=== PATIENT | female | born 1950 | race African-American/Black ===

== ENCOUNTER 2016-11-18 12:13 | Day surgery (SDC) | payer MEDICARE ==
--- OUTSIDE RECORDS SUMMARY | 2016-11-18 12:16 | XMS | Clinical Summary ---
:1950 Author Organization [facility] Address [address] [place] [address] Phone Care Team Providers Name Role Phone , Primary Care Provider Unavailable Allergies Not on File Current Medications Not on file Active Problems Not on file Social History Tobacco Use Types Packs/Day Years Used Date Never Assessed Sex Assigned at Date Recorded Not on file Last Filed Vital Signs Not on file Plan of Treatment Not on file Results Not on filefrom Last 3 Months
[2016-11-18 21:49] VITALS: TEMP 99.1
[2016-11-18] MEDS ORDERED: cloNIDine HCl 0.1 MG TAB PO SCH (22:00)
[2016-11-18] MEDS ORDERED: cloNIDine HCl 0.1 MG TAB PO PRN (22:33)
[2016-11-18 23:24] VITALS: BP 160/65
== END 2016-11-18 23:56 ==
LOC: ONC/OP 12:13 → ONC 12:34 → ONC/OP 23:56
PROVIDERS: ATTEND Internal Medicine Nephrology
PROC: 30233N1 Transfusion of Nonautologous Red Blood Cells into Peripheral Vein, Percutaneous Approach (ICD-10-PCS; principal; 2016-11-18)
DX: D63.1 Anemia in chronic kidney disease (principal); E11.22 Type 2 diabetes mellitus with diabetic chronic kidney disease; I13.2 Hypertensive heart and chronic kidney disease with heart failure and with stage 5 chronic kidney disease, or end stage renal disease; I50.9 Heart failure, unspecified; N18.6 End stage renal disease; Z99.2 Dependence on renal dialysis; K21.9 Gastro-esophageal reflux disease without esophagitis; I73.9 Peripheral vascular disease, unspecified; Z90.710 Acquired absence of both cervix and uterus; Z89.511 Acquired absence of right leg below knee; Z79.82 Long term (current) use of aspirin; Z79.899 Other long term (current) drug therapy; Z91.013 Allergy to seafood; Z91.041 Radiographic dye allergy status
CPT/HCPCS: 36430; 86850; 86900; 86901; 99211; G0463; P9016

== ENCOUNTER 2016-12-15 12:01 | Inpatient (IN) | payer MEDICARE ==
[2016-12-15] MEDS ORDERED: Meropenem 1 GM VIAL ONE (12:49)
[2016-12-15] MEDS ORDERED: Sodium Chloride 0.9% 100 ML ONE (12:50)
[2016-12-15 13:35] LABS: #Eosinphils 0.2 thou/uL (0.0-0.7); #Lymphocytes 1.3 thou/uL (1.20-3.40); #Monocytes 0.7 thou/uL (0.11-0.59); #Neutrophils 8.2 thou/uL (1.40-6.50); %Basophils 0.4 % (0.0-1.0); %Eosinophils 2.2 % (0.0-10.0); %Lymphocytes 12.3 % (21.0-51.0); Hematocrit 30.3 % (36.0-47.0); Mean Platelet Volume 7.1 fL (7.4-10.4); Red Blood Cell (RBC) Count 3.48 mill/uL (4.20-5.40); White Blood Cell (WBC) Count 10.6 thou/uL (4.8-10.8)
[2016-12-15 13:38] LABS: Prothrombin Time 14.4 SEC (12.0-14.7)
[2016-12-15 13:39] LABS: PTT 38.6 SEC (22.9-36.1)
--- NOTE | 2016-12-15 13:44 | RAD ---
LEFT LEG TWO VIEWS: HISTORY: Left leg pain. FINDINGS: The left tibia and fibula are intact. No bony destruction or periosteal reaction is seen. Vascular calcifications are present. If there is high clinical suspicion for osteomyelitis, further evaluation with MRI should be perform ed. POS: LENARD
[2016-12-15 13:58] LABS: Lactic Acid - Sepsis 1.4 mmol/L (0.5-2.2)
[2016-12-15 14:01] LABS: ALT (SGPT) Less than 7 U/L (8-55); AST (SGOT) 7 U/L (5-34); Alkaline Phosphatase 145 U/L (40-150); Anion Gap 17 mmol/L (10-20); BUN (Urea Nitrogen) 42 mg/dL (9.8-20.1); Bilirubin, Total 0.3 mg/dL (0.2-1.2); Calc. Creatinine Clearance 0 mL/min (70-130); Calcium 9.5 mg/dL (7.8-10.44); Carbon Dioxide 26 mmol/L (23-31); Chloride 98 mmol/L (98-107); Estimated GFR-MDRD 10; Protein, Total 5.9 g/dL (6.0-8.3)
[2016-12-15] MEDS ORDERED: Morphine 2 MG/ML SYRINGE ONE (14:40)
[2016-12-15] MEDS ORDERED: Dextrose 50% Abboject 50 ML SYRINGE SLOW IVP PRN (16:03)
[2016-12-15] MEDS ORDERED: Insulin Regular 300 UNITS/3 ML VIAL SC PRN (16:03)
[2016-12-15] MEDS ORDERED: VANCOMYCIN/RENALLY ADJUST ABX IVPB PRN (16:03)
[2016-12-15] MEDS ORDERED: Dextrose 5% in Water 1,000 ML IV PRN (16:03)
[2016-12-15] MEDS ORDERED: Acetaminophen 325 MG TAB PO PRN (16:04)
[2016-12-15] MEDS ORDERED: Bisacodyl 10 MG SUPP PR PRN (16:04)
[2016-12-15] MEDS ORDERED: Ondansetron HCl/PF 4 MG/2 ML Vial IVP PRN (16:04)
[2016-12-15] MEDS ORDERED: Senokot 8.6 MG TAB PO PRN (16:04)
[2016-12-15] MEDS ORDERED: Ondansetron ODT 4 MG TAB PO PRN (16:04)
[2016-12-15] MEDS ORDERED: hydrALAZINE 20 MG/ML VIAL SLOW IVP PRN (16:12)
[2016-12-15] MEDS ORDERED: Vancomycin HCl 1.25 GM in Sodium Chloride 0.9% 250 ML 250 ML IVPB SCH (16:15)
[2016-12-15] MEDS ORDERED: Vancomycin HCl 500 MG in Sodium Chloride 0.9% 100 ML IVPB SCH (16:15)
[2016-12-15] MEDS ORDERED: Vancomycin HCl 750 MG in Sodium Chloride 0.9% 250 ML 250 ML IVPB SCH (16:15)
[2016-12-15] MEDS ORDERED: HOLD VANCOMYCIN FOR LEVEL >20 FS SCH (16:15)
[2016-12-15] MEDS ORDERED: Vancomycin HCl 1 GM in Premix Bag 1 BAG IVPB SCH ×4 (16:15)
--- NOTE | 2016-12-15 16:53 | HP ---
DATE OF ADMISSION: 12/15/2016 PRIMARY CARE PHYSICIAN: Johanna Mancia D.O.at [facility]. CODE STATUS: FULL CODE. SURROGATE DECISION-MAKER: To be verified with the family when they arrive. Patient is a poor histo alin. CHIEF COMPLAINT: Sent from the longterm for worsening of the left leg ulcer. HISTORY OF PRESENT ILLNESS: Patient is a 66-year-old female with end-stage renal disease on hemodia lysis, severe peripheral vascular disease, status post right below knee amputation, diabetes mellitu s type 2 and hypertension, was sent from [facility] with the above complaints. Please note that patient is a poor historian and not much information is available from the [facility] . The patient was sent from [facility] for worsening of the left leg ulcer. The bone was visible through the wound. She normally gets wound care every other day at the facility. Today, she was evaluated by Wound Care and was advised to go to the emergency room for evaluation. Patient denies any fever, chills, or night sweats. She has around 7-8/10 pain over the legs that i s worse on movement. She denies any nausea, vomiting, or diarrhea. In the emergency room, initial vital signs showed temperature 98.3, respiration 18, pulse of 74 with O2 saturation 97% on room air. She received vancomycin, meropenem with IV fluids and morphine in [facility] emergency room. X-ray of the leg was negative for bony destruction. PAST MEDICAL HISTORY: 1. End-stage renal disease on hemodialysis. 2. Severe peripheral vascular disease, status post right below knee amputation. 3. Diabetes mellitus type 2. 4. Hypertension. 5. History of chronic nonhealing left lower extremity ulcer. 6. Chronic diastolic heart failure. 7. Gastroesophageal reflux disease. 8. Coronary artery disease. PAST SURGICAL HISTORY: 1. Hysterectomy. 2. Right below knee amputation. She also had metatarsal amputations in the past. 3. Dialysis access. ALLERGIES: Patient is allergic to IODINE. CURRENT HOME MEDICATIONS: To be verified with the longterm. She does not remember any of her h ome medications. SOCIAL HISTORY: She denies any alcohol, tobacco or drug use. She used to live alone in the past. At this time, she is at [facility]. FAMILY HISTORY: Positive for heart disease and diabetes. REVIEW OF SYSTEMS: Cannot be reliably obtained from the patient due to current cognitive status. PHYSICAL EXAMINATION: VITAL SIGNS: As discussed above. GENERAL: A 66-year-old female in mild distress due to left lower extremity pain. HEENT: Head, atraumatic, normocephalic. Sclerae are anicteric. Dry mucous membranes. Poor dental hygiene. NECK: Supple. No JVD. No carotid bruit. LUNGS: Clear to auscultation bilaterally with scattered rales at bases. HEART: S1, S2 present. Regular rate and rhythm. No rubs or gallops. There was 1/6 murmur over th e mitral area. ABDOMEN: Soft, nontender, bowel sounds present. EXTREMITIES: Patient is status post right below knee amputation. There is left lower extremity ulc er with dressing noted. We will evaluate wound with the wound care. NEUROLOGIC: Grossly nonfocal, moves all four extremities. PSYCHIATRY: Alert, awake, oriented x3. SKIN: Warm and dry. LYMPH NODES: No palpable lymph nodes in the neck. PERIPHERAL VASCULAR: Radial pulses palpable bilaterally. MUSCULOSKELETAL: No joint swelling or tenderness. LABORATORY AND X-RAY FINDINGS: CBC showed WBC 10.6 with hemoglobin 9.3, hematocrit 30.3, platelets 664,000. INR 1.1. Chemistries showed sodium 137, potassium 4, chloride 98, bicarbonate 26, BUN 42, creatinine 5.26, and glucose 238. CRP 10.95. X-ray of the left leg by my review as discussed candice gorman. IMPRESSION AND PLAN: 1. Infected left leg ulcer. 2. Diabetes mellitus type 2. 3. End-stage renal disease, on hemodialysis Thursday, Thursday, Thursday. 4. Elevated inflammatory markers. 5. Mild protein calorie malnutrition. 6. IODINE allergy. 7. Chronic anemia probably secondary to renal insufficiency. 8. Severe peripheral vascular disease, status post right below knee amputation. 9. Hypertension. PLAN: Patient will be monitored on the medical floor. We will continue empiric antibiotics that wa s started in the emergency room. We will consult General Surgery, Dr. Russell. We will keep her n.p .o. past midnight. I will also notify Dr. Ortiz for hemodialysis. Her potassium is normal. We will dialyze in a.m. She does not show any sign of fluid overload. We will confirm medications with the longterm and start accordingly. DVT prophylaxis with subcutaneous heparin. No sequential comp ression devices due to peripheral vascular disease. Plan of care was discussed with the patient. She stated understanding. We will discuss the plan wi th the family when they arrive.
[2016-12-15] MEDS ORDERED: traMADol HCl 50 MG TAB PO PRN ×2 (17:11)
[2016-12-15] MEDS ORDERED: Acetaminophen 500 MG TAB PO PRN (17:11)
[2016-12-15 17:50] VITALS: BMI 17.0
--- NOTE | 2016-12-15 19:39 | CON ---
DATE OF CONSULT: 12/15/2016 HISTORY OF PRESENT ILLNESS: Lana Frias is a 66-year-old black female who lives at [facility] . The patient underwent right [id number]-lrr-[id number] amputation in the past. She has undergone on 02/26/19 16 left arm dialysis graft after a vein was briefly placed. Fistula was found to be adequate. She had dysfunctional left arm dialysis graft with stenosis of subclavian vein and had a basilic vein AV fistula of right arm placed 08/28/2015 and on 10/09/2015, she underwent right arm basilic vein mercedes sposition fistula. She is admitted this hospitalization because of left leg problem. She has an ul ceration of the anterior leg just above the ankle exposing a segment of the anterior tibialis tendon and ulceration on the posterior leg just above the ankle exposing the Achilles tendon. She is havi ng quite a bit of pain. She has been admitted to the Hospitalist Service from the emergency room an d placed on vancomycin. I have been asked to see these wounds. Inspection of these wounds revealed that they are healthy, granulating with an exposed focus of tendon, they are very painful, but ther e is no active infection, there is no cellulitis, no purulent drainage. The patient, in my opinion, is at risk of limb loss. She, however, is not interested in this right now and wants a attempted w ound salvage. Would recommend that Wound Care see her and provide wound care and she will be discha rged home as an outpatient with follow up in my office in the next two weeks. No surgical debrideme nt is necessary at this time and I could follow her in my office. The patient has end-stage renal d isalbretoe, on maintenance dialysis, followed by Dr. Ortiz. ALLERGIES: IODINE, nausea, vomiting, but no rash. TOBACCO: None. ALCOHOL: None. MEDICATIONS: Aspirin, eyedrops, Reglan, Levemir, clonidine. PAST SURGICAL HISTORY: Left arm fistula, dialysis catheter 03/11/2012; 04/14/2012, upper endoscopy by Dr. Woodward; 04/30/2009, cystourethroscopy, placement of a ureteral stent for right hydronephrosis; 07/12/2008, right kogxh-bsc-sbli amputation by Dr. Andrew Shoemaker for gangrenous foot; 07/07/2008, r ight transmetatarsal amputation of third, fourth, and fifth toes prior to amputation, hysterectomy i n the past, hysteroscopy prior to the appendectomy, dialysis access left arm as noted above, and sub sequent basilic vein transposition in the right arm. Both fistulas are still working. PAST MEDICAL HISTORY: End-stage renal disease on maintenance dialysis at [facility], di abetes mellitus type 2, anemia of chronic disease, glaucoma, right eye blindness, stable coronary ar rosanne disease, hypertension, nonambulatory. The patient is legally blind. PHYSICAL EXAMINATION: GENERAL: The patient is cooperative and conversive. VITAL SIGNS: 97.4, 78, 176/85. LUNGS: Clear to auscultation. CARDIAC: Regular rate and rhythm without murmur or gallop. ABDOMEN: Soft, nontender. EXTREMITIES: Fistula of right arm patent, left arm dialysis graft good thrill and bruit. Right bel ow-the-knee amputation stump well healed. Left leg reveals granulating open wounds, anterior left l eg above the ankle exposing her focus on tibialis anterior tendon and posteriorly a focus of Gianni s tendon. Both of the wounds are healthy, granulating without purulent discharge, without redness, without cellulitis. LABORATORY DATA: White count 10, hemoglobin 9.3. Basic metabolic changes consistent with chronic k idney disease on maintenance dialysis, end-stage renal disease. ASSESSMENT AND PLAN: 1. End-stage renal disease on maintenance dialysis. 2. Status post right uxdcx-aeq-zxjz amputation. 3. Legally blind. 4. Diabetes mellitus, insulin-dependent. 5. Hypertension. 6. Open wounds, left leg as described above. I do not think she needs intravenous antibiotics. We will provide local wound care. I will see her as needed. She can follow up in my office in the tn xt 2 weeks. Should her pain become intolerable or wounds worsen, she is at risk for limb loss.
[2016-12-15] MEDS: Docusate 100 MG CAP PO SCH (20:38)
[2016-12-15] MEDS: Heparin 5,000 UNITS/ML VIAL SC SCH (20:39)
[2016-12-16] MEDS ORDERED: ALPRAZolam 0.25 MG TAB PO PRN (05:48)
[2016-12-16] MEDS ORDERED: cloNIDine 0.1 MG TAB PO PRN (05:52)
[2016-12-16] MEDS ORDERED: Epoetin (ESRD) 20,000 UNITS/ML SC SCH (08:00)
--- NOTE | 2016-12-16 08:48 | CON ---
DATE OF SERVICE: 12/16/2016 SUBJECTIVE: Ms. Frias is a 66-year-old black female with ESRD and admitted for left leg ulceration . She was seen by Surgery in the feeling she will only need local wound care. No surgical debridem ent is indicated. In addition, she feels that IV antibiotics are not required. We are being consul prince for her maintenance hemodialysis. She missed dialysis yesterday and for this reason, I am jhonny eagle at the present time. I am currently at her bedside supervising her hemodialysis. My plan is t o do a 3-hour dialysis today. REVIEW OF SYSTEMS: No chest pain, no shortness of breath. Positive for chronic leg ulceration. No nausea, no vomiting. Decreased visual acuity, no headache, no diplopia, no fever or chills. No gr oss hematuria. No dysuria. No urinary frequency. No abdominal pain. Appetite and energy level is fair. No hematochezia, no melena. MEDICATIONS: Currently on Tylenol 1000 mg q.6 p.r.n., Xanax 0.25 mg b.i.d., aspirin 81 mg tablet on ce a day, Azopt eyedrop as directed, PhosLo 667 mg t.i.d. with meals, Coreg 25 mg p.o. daily, Catapr es 0.1 mg q.4 p.r.n., Catapres 0.3 mg p.o. t.i.d., Colace 100 mg p.o. b.i.d., heparin 5,000 units chapa bcutaneously t.i.d., Humulin R sliding scale, Xalatan eyedrop as directed, losartan 25 mg daily, gisella openem 500 mg IV daily status post vancomycin, timolol eyedrop as directed, tramadol 500 mg q.12 p.r .n. PAST MEDICAL HISTORY: 1. ESRD from diabetic nephropathy, currently patient is on maintenance hemodialysis of Thursday, , and Thursday. 2. Chronic blindness. 3. Peripheral vascular disease. 4. Type 2 diabetes mellitus. 5. Coronary artery disease. 6. Hypertension. 7. Right eye blindness. 8. Diabetic retinopathy. 9. Status post CHF. PAST SURGICAL HISTORY: 1. Status post right BKA. 2. Status post AV fistula placement. 3. Status post cuffed dialysis catheter placement. 4. Status post right ureteral stent placement. 5. Status post cystoscopy for right hydronephrosis. 6. Status post hysterectomy. 7. Status post appendectomy. 8. Status post upper GI endoscopy. SOCIAL HISTORY: The patient is currently in a fpc, single, not , no children. 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 Education, some college courses. No smoking, no alcohol use. Stat us post blood transfusion. FAMILY HISTORY: No family history of ESRD. ALLERGIES: IODINE. TRAUMA: None. IMMUNIZATIONS: Up to date. HOSPITALIZATIONS: Please see past medical history. PHYSICAL EXAMINATION: VITAL SIGNS: Blood pressure is 165/76, heart rate 87, respiratory rate 18, temperature 97.5, and pu lse ox 99%. GENERAL: Noted to be awake, supine, comfortable, not in distress. SKIN: Adequate turgor. HEENT: Slightly pale conjunctivae, anicteric sclerae. Decreased visual acuity. NECK: No neck mass, no carotid bruits, no JVD. LUNGS: Clear breath sounds. No wheezing or crackles. HEART: Normal sinus rhythm. No murmur, no gallops or rubs. ABDOMEN: Globular, soft, nontender, no masses. EXTREMITIES: Status post right BKA, left leg ulceration. NEUROLOGIC: Awake and oriented to 3 spheres. Moving all extremities. LABORATORY DATA AND IMAGING: Laboratories of 12/15/2016; white count 10.6, hemoglobin 9.3. On 11/24, sodium 137, chloride 99, carbon dioxide 25, potassium 4.5, BUN 45, creatinine 5.46, glucose 120, calcium 9.4. On 12/15/2016, x-ray of the left leg, no bony destruction noted. ASSESSMENT AND PLAN: 1. Chronic left leg ulceration - continue local wound care. No indication for any surgical debride ment or IV antibiotics. Surgery has evaluated the patient. 2. Anemia. Restart Epogen 7,500 units subcu every week. 3. End-stage renal disease, stable. We will continue current Thursday, Thursday, Thursday hemodialysi s regimen. Please note patient missed her dialysis yesterday and for this reason she is undergoing hemodialysis for 3 hours today. Again, fluid removal only as tolerated by the patient. Overall, pr ognosis remains guarded. Please note she has left chronic upper extremity swelling secondary to a s ubclavian stenosis. Attempt to open subclavian stenosis has previously being done. However, this h as not been successful.
[2016-12-16 09:20] LABS: #Eosinphils 0.2 thou/uL (0.0-0.7); #Lymphocytes 1.5 thou/uL (1.20-3.40); #Monocytes 0.4 thou/uL (0.11-0.59); #Neutrophils 8.6 thou/uL (1.40-6.50); %Basophils 0.1 % (0.0-1.0); %Eosinophils 2.1 % (0.0-10.0); %Lymphocytes 13.6 % (21.0-51.0); %Monocytes 4.1 % (0.0-10.0); Hematocrit 35.2 % (36.0-47.0); Mean Platelet Volume 6.8 fL (7.4-10.4); Red Blood Cell (RBC) Count 4.07 mill/uL (4.20-5.40); White Blood Cell (WBC) Count 10.7 thou/uL (4.8-10.8)
--- NOTE | 2016-12-16 09:33 | PDOC.PN ---
- Subjective Encounter Start Date: 12/16/16 Encounter Start Time: 09:31 Subjective: feels Ok.pain in leg with touch. - Objective Resuscitation Status: Resuscitation Status FULL:Full Resuscitation MAR Reviewed: Yes Vital Signs & Weight: Vital Signs (12 hours) Temp Pulse Resp BP Pulse Ox 12/16/16 05:00 97.5 F L 87 18 165/76 H 99 12/16/16 00:00 98.3 F 82 16 158/70 H 100 Result Diagrams: 12/16/16 09:11 12/16/16 06:48 Additional Labs: Accuchecks 12/16/16 12/15/16 12/15/16 04:49 19:22 16:54 POC Glucose 129 H 181 H 236 H Microbiology 12/15/16 13:51 Venous blood - Right Hand Blood Culture - Preliminary Gram Positive Cocci 12/15/16 12:51 Venous blood - Right Hand Blood Culture - Preliminary Gram Positive Cocci,coag negative Laboratory Tests 12/15/16 12/15/16 12/15/16 12:51 12:51 12:51 Plt Count 664 H Neutrophils % 78.0 H Creatinine 5.28 H C-Reactive Protein 10.95 H 12/16/16 12/16/16 06:48 09:11 Plt Count 728 H Neutrophils % 80.1 H Creatinine 5.46 H C-Reactive Protein Phys Exam - Physical Examination Constitutional: NAD thin ,cacahectic but alert and awake HEENT: PERRLA, moist MMs, sclera anicteric, oral pharynx no lesions Neck: no nodes, no JVD, supple, full ROM Respiratory: no wheezing, no rales, no rhonchi, clear to auscultation bilateral Cardiovascular: RRR, no significant murmur Gastrointestinal: soft, non-tender, no distention, positive bowel sounds Musculoskeletal: no edema, pulses present R BKA.Left leg ulcer noted Neurological: non-focal, normal sensation, moves all 4 limbs Psychiatric: normal affect, A&O x 3 Dx/Plan (1) Gram-positive bacteremia Code(s): R78.81 - BACTEREMIA Status: Acute Comment: likley contamination (2) Traumatic 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 Code(s): L97.923 - NON-PRS CHRONIC ULC UNSP PRT OF L LOW LEG W NECROS MUSCLE; L08.9 - LOCAL INFECTION OF THE SKIN AND SUBCUTANEOUS TISSUE, UNSP Status: Chronic (3) Anemia of renal disease Code(s): D63.1 - ANEMIA IN CHRONIC KIDNEY DISEASE Status: Chronic (4) DM type 2 (diabetes mellitus, type 2) Status: Chronic Qualifiers: Diabetes mellitus complication status: with circulatory complication Diabetes mellitus terminologist insulin use: with usp use (5) ESRD (end stage renal disease) on dialysis Code(s): N18.6 - END STAGE RENAL DISEASE; Z99.2 - DEPENDENCE ON RENAL DIALYSIS Status: Chronic Comment: on HD (6) HTN (hypertension) Code(s): I10 - ESSENTIAL (PRIMARY) HYPERTENSION Status: Chronic (7) History of right below knee amputation Code(s): Z89.511 - ACQUIRED ABSENCE OF RIGHT LEG BELOW KNEE Status: Chronic (8) PVD (peripheral vascular disease) Code(s): I73.9 - PERIPHERAL VASCULAR DISEASE, UNSPECIFIED Status: Chronic Comment: s/p Right BKA (9) Sepsis Code(s): A41.9 - SEPSIS, UNSPECIFIED ORGANISM Status: Suspected - Plan appreciate ID input.Blood Cx babs cornjeo contaminant.ABx stopped -: No surgical debridment needed per GS.wound care consulted -: babs HOLMAN back to NH if pt continues to refuse BKA. -: supportive care.hemodynamically stable -: am labs.HD per nephrology * . Review of Systems - Review of Systems Constitutional: Weakness, Malaise. negative: Fever, Chills, Sweats, Other Respiratory: negative: Cough, Dry, Shortness of Breath, Hemoptysis, SOB with Excertion, Pleuritic Pain, Sputum, Wheezing Cardiovascular: negative: Chest Pain, Palpitations, Orthopnea, Paroxysmal Noc. Dyspnea, Edema, Light Headedness, Other Gastrointestinal: negative: Nausea, Vomiting, Abdominal Pain, Diarrhea, Constipation, Melena, Hematochezia, Other Genitourinary: negative: Dysuria, Frequency, Incontinence, Hematuria, Retention , Other Musculoskeletal: Leg Pain. negative: Neck Pain, Shoulder Pain, Arm Pain, Back Pain, Hand Pain, Foot Pain, Other Neurological: negative: Weakness, Numbness, Incoordination, Change in Speech, Confusion, Seizures, Other - Medications/Allergies Allergies/Adverse Reactions: Allergies Allergy/AdvReac Type Severity Reaction Status Date / Time Iodine and Iodide Containing Allergy Intermediate VOMITING, Verified 12/15/16 16 :54 Produc RASH shrimp Allergy Verified 12/15/16 16:54 Medications: Current Medications Acetaminophen (Tylenol) 650 mg PO Q4H PRN PRN Reason: Headache/Fever or Pain Acetaminophen (Tylenol) 1,000 mg PO Q6H PRN PRN Reason: Moderate to Severe Pain (6-10) Last Admin: 12/15/16 20:49 Dose: 1,000 mg Alprazolam (Xanax) 0.25 mg PO BIDPRN PRN PRN Reason: Anxiety Aspirin (Aspirin Chewable) 81 mg PO DAILY [facility] Bisacodyl (Dulcolax) 10 mg WA Q24H PRN PRN Reason: Constipation Brimonidine Tartrate (Alphagan 0.2% Ophth Soln) 1 drop EA EYE DAILY [facility] Brinzolamide (Azopt 1% Ophth Soln) 1 drop EA EYE BID [facility] Calcium Acetate (Phoslo) 667 mg PO TID-WM [facility] Carvedilol (Coreg) 25 mg PO DAILY [facility] Clonidine HCl (Catapres) 0.3 mg PO TID [facility] Clonidine HCl (Catapres) 0.1 mg PO Q4H PRN PRN Reason: Systolic BP > 180/ DBP >100 Dextrose/Water (Dextrose 50%) 25 gm SLOW IVP PRN PRN PRN Reason: Hypoglycemia Docusate Sodium (Colace) 100 mg PO BID [facility] Last Admin: 12/15/16 20:38 Dose: 100 mg Epoetin Ryan (Procrit) 7,500 units SC Q7D [facility] Famotidine (Pepcid) 20 mg PO DAILY [facility] Glucagon (Glucagon) 1 mg IM PRN PRN PRN Reason: Hypoglycemia Heparin Sodium (Porcine) (Heparin) 5,000 units SC BID [facility] Last Admin: 12/15/16 20:39 Dose: 5,000 units Hydralazine HCl (Apresoline) 10 mg SLOW IVP Q4H PRN PRN Reason: SBP Greater Than 180 Last Admin: 12/15/16 20:39 Dose: 10 mg Hydralazine HCl (Apresoline) 25 mg PO DAILY [facility] Dextrose/Water (D5w) 1,000 mls @ 0 mls/hr IV .Q0M PRN; As Directed PRN Reason: Hypoglycemia Meropenem 500 mg/Miscellaneous Medication 1 units/ Sodium Chloride 100 mls @ 200 mls/hr IVPB 1400 ELLIS Vancomycin HCl 1.25 gm/ Sodium (Chloride) 250 mls @ 166.667 mls/hr IVPB WILLCALL ELLIS Vancomycin HCl 1 gm/ Device 200 mls @ 200 mls/hr IVPB WILLCALL ELLIS Vancomycin HCl 750 mg/ Sodium (Chloride) 250 mls @ 250 mls/hr IVPB WILLCALL ELLIS Vancomycin HCl 500 mg/ Sodium (Chloride) 100 mls @ 100 mls/hr IVPB WILLCALL ELLIS Insulin Human Regular (Humulin R) 0 units SC .MILD SLIDING SCALE PRN PRN Reason: Mild Correctional Scale Insulin Human Regular (Humulin R) 0 units SC .BEDTIME SLIDING SC PRN PRN Reason: Bedtime Correctional Scale Latanoprost (Xalatan 0.005% Ophth Soln) 1 drop EA EYE HS ELLIS Losartan Potassium (Cozaar) 25 mg PO DAILY [facility] Loteprednol Etabonate (Lotemax 0.5% Ophth Suspension) 1 drop EA EYE BID [facility] Miscellaneous Medication (Pharmacy To Dose) 1 each IVPB PRN PRN PRN Reason: Pharmacy to dose Hold Vancomycin For (Level >20) 0 each FS .AT DIALYSIS [facility] Ondansetron HCl (Zofran Odt) 4 mg PO Q6H PRN PRN Reason: Nausea/Vomiting Ondansetron HCl (Zofran) 4 mg IVP Q6H PRN PRN Reason: Nausea/Vomiting Pilocarpine HCl (Isopto Carpine 1% Ophth Soln) 1 drop EA EYE TID ELILS Senna (Senokot) 2 tab PO HSPRN PRN PRN Reason: Constipation Timolol Maleate (Timoptic 0.5% Ophth Soln) 1 drop EA EYE DAILY [facility] Tramadol HCl (Ultram) 50 mg PO Q12H PRN PRN Reason: Pain 1ST LINE Last Admin: 12/15/16 17:47 Dose: 50 mg Tramadol HCl (Ultram) 100 mg PO Q12H PRN PRN Reason: Pain 2ND LINE
[2016-12-16 09:47] LABS: Vancomycin, Random 11.8 ug/mL (See Comment)
[2016-12-16] MEDS: Calcium Acetate 667 MG CAP PO SCH ×3 (11:19→16:43)
[2016-12-16] MEDS: Docusate 100 MG CAP PO SCH ×2 (11:20→21:39)
[2016-12-16] MEDS: Pilocarpine 1% Ophth Drops 15 ML BOT EA EYE SCH ×3 (11:20→21:41)
[2016-12-16] MEDS: cloNIDine 0.3 MG TAB PO SCH ×3 (11:20→21:39)
[2016-12-16] MEDS: Heparin 5,000 UNITS/ML VIAL SC SCH ×2 (11:20→21:40)
[2016-12-16] MEDS: Loteprednol Etabonate 0.5% Ophth Suspension 5 ml Bottle EA EYE SCH ×2 (11:20→21:41)
[2016-12-16] MEDS: Brimonidine Tartrate 0.2% Ophth Soln 5 ml Bottle EA EYE SCH (12:04)
[2016-12-16] MEDS: Losartan Potassium 25 MG TAB PO SCH (12:05)
[2016-12-16] MEDS: hydrALAZINE 25 MG TAB PO SCH (12:05)
[2016-12-16] MEDS: Famotidine 20 MG TAB PO SCH (12:05)
[2016-12-16] MEDS: Timolol 0.5% Ophth Soln 5 ml Bottle EA EYE SCH (12:06)
[2016-12-16] MEDS: Brinzolamide 1% Ophth Soln 10 ml Bottle EA EYE SCH ×2 (12:06→21:40)
[2016-12-16] MEDS: Carvedilol 25 MG TAB PO SCH (12:06)
--- NOTE | 2016-12-16 13:59 | CON ---
DATE OF CONSULTATION: 12/16/2016 REASON FOR CONSULTATION: Ulcer in left leg and bacteremia. HISTORY OF PRESENT ILLNESS: A 66-year-old known to me from prior visits who has a history of type 2 diabetes mellitus, hypertension, end-stage renal disease, and peripheral vascular disease with prio r right BKA. Originally, I first saw this patient on 09/2016 when she presented with chronic ulcera tions in left leg, hypoglycemia, change in mental status and bradycardia. The precipitating event f or the presentation was not clear and the possibility of transient bacteremia was considered. In [facility], she was seen with evidence of stercoral colitis infection and the possibility of that causi ng the episodes of hypotension and neutrophilia was considered. At this time, she was sent from the skilled nursing because of worsening of left leg ulcer. Initial findings included temperature 98.3, r espiratory rate 18, pulse 74, and O2 sat 97%. She was noted to have this chronic ulceration in the medial left leg with a central area of yellow necrotic tissue and surrounding red tissue, poor granu lation. No undermining. Currently, she has pain in that leg, but no headaches, no change in visual symptoms, sore throat, odynophagia or dysphagia. No abdominal pain or diarrhea. No genitourinary symptoms. She has had soft stool. She is dialyzed through an AV fistula in the left upper extremit y. PAST MEDICAL HISTORY: Includes type 2 diabetes, peripheral vascular disease, recurrent episodes of hypotension and hypoglycemia, hypertension, peripheral vascular disease with right BKA, chronic ulce ration in left leg, and cardiomyopathy. PAST SURGICAL HISTORY: Also includes hysterectomy, right transmetatarsal amputation, right BKA. MEDICATIONS: Currently, Tylenol, Xanax, aspirin, Dulcolax, Azopt, PhosLo, Coreg, Catapres, Apresoli ne, insulin, meropenem, and vancomycin. PHYSICAL EXAMINATION: VITAL SIGNS: T-max 99.2, blood pressure 170/80, pulse 78, respirations 16, O2 sat 97%. GENERAL APPEARANCE: Appears in no distress. SKIN: Exam shows the chronic ulceration left leg with irregular borders measuring 2.5 x [address] Cent er of the ulcer with necrotic yellow tissue, margin of red tissue and a swollen left upper extremity associated with AV fistula. Some limitation of range of motion of the left elbow. HEENT: Disconjugate eye movements. Dense cataract in the right eye. Limited vision in the left wi th light perception and able to count fingers only. Oral cavity with numerous missing teeth. Remai nder ones with marked decay. NECK: Supple. LUNGS: Clear to auscultation and percussion. No jugular venous distention. HEART: S1, S2, regular rate without murmurs. ABDOMEN: Soft, nondistended, or tender. No bladder distention. EXTREMITIES: Tender left leg at the site of the ulcer. Pulses are not palpable in dorsalis pedis o r posterior tibialis. Capillary refill round 4 seconds. NEUROLOGIC: Examination is unchanged from prior visits. She is awake, alert, oriented, pleasant. Able to move extremities with some limitations. LABORATORY DATA: White cell count 10.6, hemoglobin 9.3, platelets 664, sodium 137, creatinine 5.46. Transaminases normal, bilirubin normal, albumin 2.9. Microbiology with 2/2 sets of blood cultures positive for gram positive cocci identified as coagulase-negative Staphylococcus. The samples were obtained about the same location, but different time. ASSESSMENT: 1. Type 2 diabetes, peripheral vascular disease. 2. Chronic ulcer of left leg with worsening pain. 3. Bacteremia. DISCUSSION: The bacteremia is most likely contaminant of the sample. She does not have any vascula r catheters and this type of sample from patient's, her situation are typically caused by contaminat ion of the sample of the specimen rather than true bacteremia. Discontinue antimicrobial therapy. Regarding management of the left leg ulcer, most likely this is secondary to peripheral vascular dis ease including microvascular disease. I do not think she would be amenable to revascularization. E ventually, we will require BKA amputation for symptom control since she is not able to use the extre mity.
[2016-12-16] MEDS ORDERED: SODIUM CHLORIDE 0.9% IVPB SCH (14:00)
[2016-12-16] MEDS ORDERED: MEROPENEM IVPB SCH (14:00)
[2016-12-16] MEDS ORDERED: ADMIXTURE FEE CHEMO IVPB SCH (14:00)
[2016-12-16] MEDS: Latanoprost 0.005% Ophth Soln 2.5 ml Bottle EA EYE SCH (21:41)
[2016-12-17] MEDS: cloNIDine 0.3 MG TAB PO SCH ×3 (07:44→22:23)
[2016-12-17] MEDS: Calcium Acetate 667 MG CAP PO SCH ×3 (07:44→17:30)
[2016-12-17] MEDS: Pilocarpine 1% Ophth Drops 15 ML BOT EA EYE SCH ×3 (07:45→22:24)
[2016-12-17 08:02] LABS: #Basophils 0.1 thou/uL (0.0-0.2); #Eosinphils 0.1 thou/uL (0.0-0.7); #Lymphocytes 1.3 thou/uL (1.20-3.40); #Monocytes 0.6 thou/uL (0.11-0.59); #Neutrophils 8.5 thou/uL (1.40-6.50); %Basophils 0.5 % (0.0-1.0); %Eosinophils 0.8 % (0.0-10.0); %Lymphocytes 12.6 % (21.0-51.0); %Monocytes 5.7 % (0.0-10.0); Hematocrit 32.3 % (36.0-47.0); Mean Platelet Volume 6.9 fL (7.4-10.4); Red Blood Cell (RBC) Count 3.71 mill/uL (4.20-5.40); White Blood Cell (WBC) Count 10.6 thou/uL (4.8-10.8)
[2016-12-17 08:22] LABS: Anion Gap 15 mmol/L (10-20); BUN (Urea Nitrogen) 32 mg/dL (9.8-20.1); Calc. Creatinine Clearance 10 mL/min (70-130); Calcium 9.7 mg/dL (7.8-10.44); Carbon Dioxide 29 mmol/L (23-31); Chloride 101 mmol/L (98-107); Estimated GFR-MDRD 12
--- NOTE | 2016-12-17 10:38 | PRG ---
DATE OF SERVICE: 12/17/2016 SUBJECTIVE: Ms. Frias is a 66-year-old black female with known history of ESRD and currently under going hemodialysis. I am at the bedside supervising her dialysis. She was seen initially for a lef t leg wound. ID and Surgery have evaluated this patient. No indication for any IV antibiotics. Hakeem gorman probably will need wound care. Eventually, she may need an amputation. Her bacteremia is most li zuleyma a contaminant as per suggestion by ID. She is tolerating her hemodialysis. PHYSICAL EXAMINATION: VITAL SIGNS: Blood pressure 145/76, heart rate 79, respiratory rate 20, temperature 98.4, pulse ox 98%. GENERAL: Noted to be awake, comfortable, not in distress. SKIN: Adequate turgor. HEENT: Decreased visual acuity. Pinkish conjunctivae, anicteric sclerae. NECK: No neck mass, no carotid bruits, no JVD. CHEST: No deformities. LUNGS: Clear breath sounds. No wheezing or crackles. HEART: Normal sinus rhythm. No murmurs, gallops or rubs. ABDOMEN: Globular, soft, nontender, no masses. EXTREMITIES: Status post right BKA. Left leg wound. NEUROLOGIC: Awake, oriented to 3 spheres. Moving all extremities. Decreased visual acuity. MEDICATIONS: 12/17/2016 - Reviewed. LABORATORY: 12/17/2016 - White count 10.6, hemoglobin 9.9, sodium 141, potassium 4, chloride 101, c arbon dioxide 29, BUN 32, creatinine 4.36, glucose 127, calcium 9.7 ASSESSMENT AND PLAN: 1. End-stage renal disease, stable. Tolerating current hemodialysis regimen. Continue Thursday, Thu, Thursday dialysis. No indication for any extra dialysis for tomorrow. She looks euvolemic. Her potassium is within normal. 2. Chronic left leg wound - likely secondary to peripheral vascular disease. The leg wound is not infected. Continue wound care.
[2016-12-17] MEDS: Docusate 100 MG CAP PO SCH ×2 (12:07→22:24)
[2016-12-17] MEDS: Losartan Potassium 25 MG TAB PO SCH (12:07)
[2016-12-17] MEDS: hydrALAZINE 25 MG TAB PO SCH (12:07)
[2016-12-17] MEDS: Famotidine 20 MG TAB PO SCH (12:07)
[2016-12-17] MEDS: Brimonidine Tartrate 0.2% Ophth Soln 5 ml Bottle EA EYE SCH (12:08)
[2016-12-17] MEDS: Carvedilol 25 MG TAB PO SCH (12:08)
[2016-12-17] MEDS: Timolol 0.5% Ophth Soln 5 ml Bottle EA EYE SCH (12:08)
[2016-12-17] MEDS: Loteprednol Etabonate 0.5% Ophth Suspension 5 ml Bottle EA EYE SCH ×2 (12:08→22:24)
[2016-12-17] MEDS: Heparin 5,000 UNITS/ML VIAL SC SCH ×2 (12:08→22:24)
[2016-12-17] MEDS: Brinzolamide 1% Ophth Soln 10 ml Bottle EA EYE SCH ×2 (12:09→22:23)
--- NOTE | 2016-12-17 14:15 | PDOC.PN ---
- Subjective Encounter Start Date: 12/17/16 Encounter Start Time: 07:15 -: old records requested/rev Patient seen and examined. No new complaints. No overnight events - Objective Resuscitation Status: Resuscitation Status FULL:Full Resuscitation MAR Reviewed: Yes Vital Signs & Weight: Vital Signs (12 hours) Temp Pulse Resp BP Pulse Ox 12/17/16 12:00 98.4 F 85 20 169/80 H 97 12/17/16 08:17 98.4 F 79 20 145/76 H 98 Weight Admit Weight 109 lb Weight 109 lb Result Diagrams: 12/17/16 07:47 12/17/16 07:47 Additional Labs: Accuchecks 12/17/16 12/17/16 12/16/16 12:02 05:10 20:27 POC Glucose 98 117 H 155 H 12/16/16 17:14 POC Glucose 117 H Phys Exam - Physical Examination Constitutional: NAD HEENT: PERRLA, moist MMs, sclera anicteric Neck: no JVD, supple Respiratory: no wheezing, no rales, no rhonchi Cardiovascular: RRR, no significant murmur, no rub Gastrointestinal: soft, non-tender, no distention, positive bowel sounds wound over left LE with dressing Neurological: non-focal, normal sensation Lymphatic: no nodes Psychiatric: normal affect Skin: no rash, normal turgor Dx/Plan (1) Gram-positive bacteremia Code(s): R78.81 - BACTEREMIA Status: Acute Comment: likley contamination (2) Protein-calorie malnutrition, moderate Code(s): E44.0 - MODERATE PROTEIN-CALORIE MALNUTRITION Status: Chronic (3) Traumatic 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 Code(s): L97.923 - NON-PRS CHRONIC ULC UNSP PRT OF L LOW LEG W NECROS MUSCLE; L08.9 - LOCAL INFECTION OF THE SKIN AND SUBCUTANEOUS TISSUE, UNSP Status: Chronic (4) Anemia of renal disease Code(s): D63.1 - ANEMIA IN CHRONIC KIDNEY DISEASE Status: Chronic (5) DM type 2 (diabetes mellitus, type 2) Status: Chronic Qualifiers: Diabetes mellitus complication status: with circulatory complication Diabetes mellitus senior living insulin use: with senior living use (6) ESRD (end stage renal disease) on dialysis Code(s): N18.6 - END STAGE RENAL DISEASE; Z99.2 - DEPENDENCE ON RENAL DIALYSIS Status: Chronic Comment: on HD (7) Glaucoma Code(s): H40.9 - UNSPECIFIED GLAUCOMA Status: Chronic (8) HTN (hypertension) Code(s): I10 - ESSENTIAL (PRIMARY) HYPERTENSION Status: Chronic (9) History of right below knee amputation Code(s): Z89.511 - ACQUIRED ABSENCE OF RIGHT LEG BELOW KNEE Status: Chronic (10) PVD (peripheral vascular disease) Code(s): I73.9 - PERIPHERAL VASCULAR DISEASE, UNSPECIFIED Status: Chronic Comment: s/p Right BKA (11) Sepsis Code(s): A41.9 - SEPSIS, UNSPECIFIED ORGANISM Status: Suspected - Plan cont current plan of care, continue antibiotics * DC meropenam * repeat blood culture again tomorrow * currently on vancomycin with HD * wound care * pain controlled * expecting discharge tomorrow to SNU * medication reviewed as below * symptomatic treatment. * ID does not recommend antibiotics but 2/2 positive is concerning, will do repeat culture Review of Systems - Review of Systems ENT: negative: Ear Pain, Ear Discharge, Nose Pain, Nose Discharge, Nose Congestion, Mouth Pain, Mouth Swelling, Throat Pain, Throat Swelling, Other Respiratory: negative: Cough, Dry, Shortness of Breath, Hemoptysis, SOB with Excertion, Pleuritic Pain, Sputum, Wheezing Cardiovascular: negative: Chest Pain, Palpitations, Orthopnea, Paroxysmal Noc. Dyspnea, Edema, Light Headedness, Other Gastrointestinal: negative: Nausea, Vomiting, Abdominal Pain, Diarrhea, Constipation, Melena, Hematochezia, Other Genitourinary: negative: Dysuria, Frequency, Incontinence, Hematuria, Retention , Other Musculoskeletal: negative: Neck Pain, Shoulder Pain, Arm Pain, Back Pain, Hand Pain, Leg Pain, Foot Pain, Other - Medications/Allergies Allergies/Adverse Reactions: Allergies Allergy/AdvReac Type Severity Reaction Status Date / Time Iodine and Iodide Containing Allergy Intermediate VOMITING, Verified 12/15/16 16 :54 Produc RASH shrimp Allergy Verified 12/15/16 16:54 Medications: Current Medications Acetaminophen (Tylenol) 650 mg PO Q4H PRN PRN Reason: Headache/Fever or Pain Acetaminophen (Tylenol) 1,000 mg PO Q6H PRN PRN Reason: Moderate to Severe Pain (6-10) Last Admin: 12/15/16 20:49 Dose: 1,000 mg Alprazolam (Xanax) 0.25 mg PO BIDPRN PRN PRN Reason: Anxiety Aspirin (Aspirin Chewable) 81 mg PO DAILY PENDING SALE TO [facility] Last Admin: 12/17/16 12:08 Dose: 81 mg Bisacodyl (Dulcolax) 10 mg FL Q24H PRN PRN Reason: Constipation Brimonidine Tartrate (Alphagan 0.2% Ophth Soln) 1 drop EA EYE DAILY PENDING SALE TO [facility] Last Admin: 12/17/16 12:08 Dose: 1 drop Brinzolamide (Azopt 1% Ophth Soln) 1 drop EA EYE BID PENDING SALE TO [facility] Last Admin: 12/17/16 12:09 Dose: 1 drop Calcium Acetate (Phoslo) 667 mg PO TID-[facility] Last Admin: 12/17/16 12:07 Dose: 667 mg Carvedilol (Coreg) 25 mg PO DAILY PENDING SALE TO [facility] Last Admin: 12/17/16 12:08 Dose: 25 mg Clonidine HCl (Catapres) 0.3 mg PO TID PENDING SALE TO [facility] Last Admin: 12/17/16 07:44 Dose: Not Given Clonidine HCl (Catapres) 0.1 mg PO Q4H PRN PRN Reason: Systolic BP > 180/ DBP >100 Dextrose/Water (Dextrose 50%) 25 gm SLOW IVP PRN PRN PRN Reason: Hypoglycemia Docusate Sodium (Colace) 100 mg PO BID PENDING SALE TO [facility] Last Admin: 12/17/16 12:07 Dose: 100 mg Epoetin Ryan (Procrit) 7,500 units SC Q7D PENDING SALE TO [facility] Last Admin: 12/16/16 14:53 Dose: 7,500 units Famotidine (Pepcid) 20 mg PO DAILY PENDING SALE TO [facility] Last Admin: 12/17/16 12:07 Dose: 20 mg Glucagon (Glucagon) 1 mg IM PRN PRN PRN Reason: Hypoglycemia Heparin Sodium (Porcine) (Heparin) 5,000 units SC BID PENDING SALE TO [facility] Last Admin: 12/17/16 12:08 Dose: 5,000 units Hydralazine HCl (Apresoline) 10 mg SLOW IVP Q4H PRN PRN Reason: SBP Greater Than 180 Last Admin: 12/15/16 20:39 Dose: 10 mg Hydralazine HCl (Apresoline) 25 mg PO DAILY PENDING SALE TO [facility] Last Admin: 12/17/16 12:07 Dose: 25 mg Dextrose/Water (D5w) 1,000 mls @ 0 mls/hr IV .Q0M PRN; As Directed PRN Reason: Hypoglycemia Vancomycin HCl 1.25 gm/ Sodium (Chloride) 250 mls @ 166.667 mls/hr IVPB WILLCALL PENDING SALE TO [facility] Vancomycin HCl 1 gm/ Device 200 mls @ 200 mls/hr IVPB WILLCALL ELLIS Vancomycin HCl 750 mg/ Sodium (Chloride) 250 mls @ 250 mls/hr IVPB WILLCALL PENDING SALE TO [facility] Last Admin: 12/17/16 10:04 Dose: 250 mls Vancomycin HCl 500 mg/ Sodium (Chloride) 100 mls @ 100 mls/hr IVPB WILLCALL PENDING SALE TO [facility] Insulin Human Regular (Humulin R) 0 units SC .MILD SLIDING SCALE PRN PRN Reason: Mild Correctional Scale Insulin Human Regular (Humulin R) 0 units SC .BEDTIME SLIDING SC PRN PRN Reason: Bedtime Correctional Scale Latanoprost (Xalatan 0.005% Ophth Soln) 1 drop EA EYE HS PENDING SALE TO [facility] Last Admin: 12/16/16 21:41 Dose: 1 drop Losartan Potassium (Cozaar) 25 mg PO DAILY PENDING SALE TO [facility] Last Admin: 12/17/16 12:07 Dose: 25 mg Loteprednol Etabonate (Lotemax 0.5% Ophth Suspension) 1 drop EA EYE BID PENDING SALE TO [facility] Last Admin: 12/17/16 12:08 Dose: 1 drop Miscellaneous Medication (Pharmacy To Dose) 1 each IVPB PRN PRN PRN Reason: Pharmacy to dose Hold Vancomycin For (Level >20) 0 each FS .AT DIALYSIS PENDING SALE TO [facility] Ondansetron HCl (Zofran Odt) 4 mg PO Q6H PRN PRN Reason: Nausea/Vomiting Ondansetron HCl (Zofran) 4 mg IVP Q6H PRN PRN Reason: Nausea/Vomiting Pilocarpine HCl (Isopto Carpine 1% Ophth Soln) 1 drop EA EYE TID PENDING SALE TO [facility] Last Admin: 12/17/16 12:06 Dose: 1 drop Senna (Senokot) 2 tab PO HSPRN PRN PRN Reason: Constipation Timolol Maleate (Timoptic 0.5% Ophth Soln) 1 drop EA EYE DAILY PENDING SALE TO [facility] Last Admin: 12/17/16 12:08 Dose: 1 drop Tramadol HCl (Ultram) 50 mg PO Q12H PRN PRN Reason: Pain 1ST LINE Last Admin: 12/15/16 17:47 Dose: 50 mg Tramadol HCl (Ultram) 100 mg PO Q12H PRN PRN Reason: Pain 2ND LINE
[2016-12-17] MEDS: Insulin Regular 300 UNITS/3 ML VIAL SC PRN (17:30)
--- OUTSIDE RECORDS SUMMARY | 2016-12-17 20:09 | XMS | Clinical Summary ---
:1950 Author Organization [facility] Address [address] [place] [address] Phone Care Team Providers Name Role Phone [...]
[2016-12-17] MEDS: Latanoprost 0.005% Ophth Soln 2.5 ml Bottle EA EYE SCH (21:00)
[2016-12-18] MEDS: Calcium Acetate 667 MG CAP PO SCH ×3 (08:55→17:17)
[2016-12-18] MEDS: Losartan Potassium 25 MG TAB PO SCH (08:55)
[2016-12-18] MEDS: Famotidine 20 MG TAB PO SCH (08:55)
[2016-12-18] MEDS: Pilocarpine 1% Ophth Drops 15 ML BOT EA EYE SCH ×3 (08:55→22:07)
[2016-12-18] MEDS: Docusate 100 MG CAP PO SCH ×2 (08:55→22:05)
[2016-12-18] MEDS: hydrALAZINE 25 MG TAB PO SCH (08:55)
[2016-12-18] MEDS: cloNIDine 0.3 MG TAB PO SCH ×2 (08:55→14:05)
[2016-12-18] MEDS: Carvedilol 25 MG TAB PO SCH (08:55)
[2016-12-18] MEDS: Brinzolamide 1% Ophth Soln 10 ml Bottle EA EYE SCH ×2 (08:56→22:05)
[2016-12-18] MEDS: Brimonidine Tartrate 0.2% Ophth Soln 5 ml Bottle EA EYE SCH (08:56)
[2016-12-18] MEDS: Loteprednol Etabonate 0.5% Ophth Suspension 5 ml Bottle EA EYE SCH ×2 (08:56→22:07)
[2016-12-18] MEDS: Heparin 5,000 UNITS/ML VIAL SC SCH ×2 (08:57→22:05)
[2016-12-18] MEDS: Timolol 0.5% Ophth Soln 5 ml Bottle EA EYE SCH (08:57)
--- NOTE | 2016-12-18 11:05 | DIS ---
DATE OF ADMISSION: 12/15/2016 DATE OF DISCHARGE: 12/18/2016 PRIMARY CARE PHYSICIAN: Dr. Grady Thrasher. DISCHARGE DISPOSITION: [facility]. PRIMARY DISCHARGE DIAGNOSES: 1. Bacteremia due to coagulase negative Staphylococcus aureus. 2. Infected left leg ulcer. SECONDARY DISCHARGE DIAGNOSES: 1. Diabetes type 2. 2. End-stage renal disease on hemodialysis Thursday, Thursday, and Thursday. 3. Mild protein calorie malnutrition. 4. Anemia of renal disease. 5. Severe peripheral vascular disease. 6. History of right below knee amputation. 7. Hypertension. 8. History of nonhealing left lower extremity ulcer. 9. Chronic diastolic heart failure. 10. Coronary artery disease. 11. Gastroesophageal reflux disease. PRIMARY PROCEDURE/OPERATION: Maintenance hemodialysis. RADIOLOGICAL INVESTIGATION: Tibia-fibula x-ray showed no fracture or dislocation noted, no bony destruction or periosteal reaction. SIGNIFICANT LABORATORY DATA: WBC 10.6, hemoglobin 9.9, platelets 720, INR 1.1, sodium 141, potassium 4.0, BUN 32, creatinine 4.36, calcium 9.7. Blood culture positive for coagulase negative Staphylococcus aureus. ALLERGIES: IODINE. DISCHARGE PLAN: Post hospital, the patient is discharged back to [facility]. Patient will follow up with primary care physician and Dr. Russell as instructed. HOSPITAL COURSE: A 66-year-old -[place] female with the above- mentioned medical problem, who lives at [facility]. The patient was sent to emergency room for left lower extremity wound, which was appeared to be infected. In the emergency room, she was hemodynamically stable. Patient was given vancomycin, meropenem and morphine in the emergency room. X-ray of the lower extremity was negative for any bony destruction. Patient's blood culture came back positive 2/2 coagulase negative Staphylococcus aureus. Dr. Mckinney was consulted while in hospital and he was thinking that this is contaminant and he was not recommending antibiotic therapy, but as this patient 2/2 was positive and that is why we were concerned about and decided to do a repeat blood culture and repeat blood culture was done today. If blood culture is coming back negative, then vancomycin therapy can be discontinued. At this point, we recommended to continue vancomycin with dialysis. Dr. Russell also evaluated this patient and he recommended that the only way to treat this patient's problem is left below knee amputation and at this point, patient and family member is not ready for that, and he recommended to follow up with him as an outpatient basis. Dr. Ortiz was doing maintenance hemodialysis while in hospital. We spoke with Dr. Ortiz about vancomycin sliding scale with the dialysis for at least a week until repeat blood culture turned out to be completely negative. This patient is at high risk for recurrent admission and in that case, the patient may end up with a left BKA as well. PHYSICAL EXAMINAITON: The patient is seen and examined at bedside today. VITAL SIGNS: Currently temperature 98.5, pulse 76, respiratory rate 18, saturation 98%, blood pressure 130/69. Weight 109 pounds. GENERAL: The patient is currently alert, awake. She is legally blind. HEAD: Normocephalic, atraumatic. EYES: Pupils round, reactive to light. Extraocular muscles intact. ENT: Oropharynx within normal limits. LUNGS: Clear to auscultation without any rhonchi. CARDIAC: S1, S2 regular, without any murmurs. ABDOMEN: Soft and benign. EXTREMITIES: Right BKA and left lower extremity wound covered with a dressing. NEUROLOGIC: Nonfocal examination. REVIEW OF SYSTEMS: Reviewed and negative. Paper work for discharge. Discharge medication reconciliation done. DISCHARGE MEDICATIONS: Xanax 0.25 mg p.o. b.i.d., aspirin 81 mg p.o. daily, brimonidine with timolol ophthalmic drops daily, Azopt ophthalmic drop b.i.d. PhosLo 667 mg t.i.d., Coreg 25 mg daily, Lantus insulin 10 units subcutaneously b.i.d., Xalatan eyedrops at bedtime, losartan 25 mg p.o. daily, Lotemax ophthalmic drops b.i.d., pilocarpine ophthalmic drops t.i.d., vancomycin sliding scale with hemodialysis, clonidine 0.3 mg t.i.d., hydralazine 25 mg p.o. daily. MTDD
[2016-12-18] MEDS: Insulin Regular 300 UNITS/3 ML VIAL SC PRN ×2 (12:37→17:17)
[2016-12-18] MEDS ORDERED: cloNIDine 0.1 MG TAB PO PRN (14:10)
[2016-12-18] MEDS: Latanoprost 0.005% Ophth Soln 2.5 ml Bottle EA EYE SCH (22:07)
[2016-12-19 08:25] VITALS: BP 171/85; TEMP 97.6
[2016-12-19] MEDS: Losartan Potassium 25 MG TAB PO SCH (09:15)
[2016-12-19] MEDS: Calcium Acetate 667 MG CAP PO SCH (09:15)
[2016-12-19] MEDS: Carvedilol 25 MG TAB PO SCH (09:15)
[2016-12-19] MEDS: hydrALAZINE 25 MG TAB PO SCH (09:15)
[2016-12-19] MEDS: Famotidine 20 MG TAB PO SCH (09:16)
[2016-12-19] MEDS: Brimonidine Tartrate 0.2% Ophth Soln 5 ml Bottle EA EYE SCH (09:16)
[2016-12-19] MEDS: Pilocarpine 1% Ophth Drops 15 ML BOT EA EYE SCH (09:16)
[2016-12-19] MEDS: Docusate 100 MG CAP PO SCH (09:16)
[2016-12-19] MEDS: Heparin 5,000 UNITS/ML VIAL SC SCH (09:16)
[2016-12-19] MEDS: Loteprednol Etabonate 0.5% Ophth Suspension 5 ml Bottle EA EYE SCH (09:17)
[2016-12-19] MEDS: Brinzolamide 1% Ophth Soln 10 ml Bottle EA EYE SCH (09:17)
[2016-12-19] MEDS: Timolol 0.5% Ophth Soln 5 ml Bottle EA EYE SCH (09:25)
--- NOTE | 2016-12-19 10:30 | PDOC.PN ---
- Subjective Encounter Start Date: 12/19/16 Encounter Start Time: 07:10 Patient seen and examined. No new complaints. No overnight events - Objective Resuscitation Status: Resuscitation Status FULL:Full Resuscitation MAR Reviewed: Yes Vital Signs & Weight: Vital Signs (12 hours) Temp Pulse Resp BP Pulse Ox 12/19/16 09:25 85 12/19/16 09:15 85 12/19/16 08:00 97.6 F 85 16 12/19/16 07:24 97.6 F 85 16 171/85 H 95 Weight Admit Weight 109 lb Weight 109 lb I&O: 12/18/16 12/19/16 12/20/16 06:59 06:59 06:59 Intake Total 700 1000 Balance 700 1000 Result Diagrams: 12/17/16 07:47 12/17/16 07:47 Additional Labs: Accuchecks 12/19/16 12/18/16 12/18/16 05:04 19:20 17:11 POC Glucose 231 H 141 H 207 H 12/18/16 11:18 POC Glucose 291 H Phys Exam - Physical Examination Constitutional: NAD HEENT: PERRLA, moist MMs, sclera anicteric Neck: no JVD, supple Respiratory: no wheezing, no rales, no rhonchi Cardiovascular: RRR, no significant murmur, no rub Gastrointestinal: soft, non-tender, no distention, positive bowel sounds right bka, leg leg wound with dressing Neurological: non-focal, normal sensation Lymphatic: no nodes Psychiatric: normal affect Skin: no rash, normal turgor Dx/Plan (1) Bacteremia due to coagulase-negative Staphylococcus Code(s): R78.81 - BACTEREMIA Status: Acute (2) Protein-calorie malnutrition, moderate Code(s): E44.0 - MODERATE PROTEIN-CALORIE MALNUTRITION Status: Chronic (3) Traumatic 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 Code(s): L97.923 - NON-PRS CHRONIC ULC UNSP PRT OF L LOW LEG W NECROS MUSCLE; L08.9 - LOCAL INFECTION OF THE SKIN AND SUBCUTANEOUS TISSUE, UNSP Status: Chronic (4) Anemia of renal disease Code(s): D63.1 - ANEMIA IN CHRONIC KIDNEY DISEASE Status: Chronic (5) DM type 2 (diabetes mellitus, type 2) Status: Chronic Qualifiers: Diabetes mellitus complication status: with circulatory complication Diabetes mellitus senior living insulin 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: 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 (6) ESRD (end stage renal disease) on dialysis Code(s): N18.6 - END STAGE RENAL DISEASE; Z99.2 - DEPENDENCE ON RENAL DIALYSIS Status: Chronic Comment: on HD (7) Glaucoma Code(s): H40.9 - UNSPECIFIED GLAUCOMA Status: Chronic (8) HTN (hypertension) Code(s): I10 - ESSENTIAL (PRIMARY) HYPERTENSION Status: Chronic (9) History of right below knee amputation Code(s): Z89.511 - ACQUIRED ABSENCE OF RIGHT LEG BELOW KNEE Status: Chronic (10) PVD (peripheral vascular disease) Code(s): I73.9 - PERIPHERAL VASCULAR DISEASE, UNSPECIFIED Status: Chronic Comment: s/p Right BKA - 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 Review of Systems - Review of Systems ENT: negative: Ear Pain, Ear Discharge, Nose Pain, Nose Discharge, Nose Congestion, Mouth Pain, Mouth Swelling, Throat Pain, Throat Swelling, Other Respiratory: negative: Cough, Dry, Shortness of Breath, Hemoptysis, SOB with Excertion, Pleuritic Pain, Sputum, Wheezing Cardiovascular: negative: Chest Pain, Palpitations, Orthopnea, Paroxysmal Noc. Dyspnea, Edema, Light Headedness, Other Gastrointestinal: negative: Nausea, Vomiting, Abdominal Pain, Diarrhea, Constipation, Melena, Hematochezia, Other Genitourinary: negative: Dysuria, Frequency, Incontinence, Hematuria, Retention , Other Musculoskeletal: negative: Neck Pain, Shoulder Pain, Arm Pain, Back Pain, Hand Pain, Leg Pain, Foot Pain, Other - Medications/Allergies Allergies/Adverse Reactions: Allergies Allergy/AdvReac Type Severity Reaction Status Date / Time Iodine and Iodide Containing Allergy Intermediate VOMITING, Verified 12/15/16 16 :54 Produc RASH shrimp Allergy Verified 12/15/16 16:54 Medications: Current Medications Acetaminophen (Tylenol) 650 mg PO Q4H PRN PRN Reason: Headache/Fever or Pain Acetaminophen (Tylenol) 1,000 mg PO Q6H PRN PRN Reason: Moderate to Severe Pain (6-10) Last Admin: 12/15/16 20:49 Dose: 1,000 mg Alprazolam (Xanax) 0.25 mg PO BIDPRN PRN PRN Reason: Anxiety Aspirin (Aspirin Chewable) 81 mg PO DAILY [facility] Last Admin: 12/19/16 09:16 Dose: 81 mg Bisacodyl (Dulcolax) 10 mg AK Q24H PRN PRN Reason: Constipation Brimonidine Tartrate (Alphagan 0.2% Ophth Soln) 1 drop EA EYE DAILY [facility] Last Admin: 12/19/16 09:16 Dose: 1 drop Brinzolamide (Azopt 1% Ophth Soln) 1 drop EA EYE BID [facility] Last Admin: 12/19/16 09:17 Dose: 1 drop Calcium Acetate (Phoslo) 667 mg PO TID-[facility] Last Admin: 12/19/16 09:15 Dose: 667 mg Carvedilol (Coreg) 25 mg PO DAILY [facility] Last Admin: 12/19/16 09:15 Dose: 25 mg Clonidine (Catapres) 0.1 mg PO BID PRN PRN Reason: SBP GREATER THAN 160 Dextrose/Water (Dextrose 50%) 25 gm SLOW IVP PRN PRN PRN Reason: Hypoglycemia Docusate Sodium (Colace) 100 mg PO BID [facility] Last Admin: 12/19/16 09:16 Dose: 100 mg Epoetin Ryan (Procrit) 7,500 units SC Q7D [facility] Last Admin: 12/16/16 14:53 Dose: 7,500 units Famotidine (Pepcid) 20 mg PO DAILY [facility] Last Admin: 12/19/16 09:16 Dose: 20 mg Glucagon (Glucagon) 1 mg IM PRN PRN PRN Reason: Hypoglycemia Heparin Sodium (Porcine) (Heparin) 5,000 units SC BID [facility] Last Admin: 12/19/16 09:16 Dose: 5,000 units Hydralazine HCl (Apresoline) 10 mg SLOW IVP Q4H PRN PRN Reason: SBP Greater Than 180 Last Admin: 12/15/16 20:39 Dose: 10 mg Hydralazine HCl (Apresoline) 25 mg PO DAILY [facility] Last Admin: 12/19/16 09:15 Dose: 25 mg Dextrose/Water (D5w) 1,000 mls @ 0 mls/hr IV .Q0M PRN; As Directed PRN Reason: Hypoglycemia Vancomycin HCl 1.25 gm/ Sodium (Chloride) 250 mls @ 166.667 mls/hr IVPB WILLCALL [facility] Vancomycin HCl 1 gm/ Device 200 mls @ 200 mls/hr IVPB [facility] Vancomycin HCl 750 mg/ Sodium (Chloride) 250 mls @ 250 mls/hr IVPB [facility] Last Admin: 12/17/16 10:04 Dose: 250 mls Vancomycin HCl 500 mg/ Sodium (Chloride) 100 mls @ 100 mls/hr IVPB [facility] Insulin Human Regular (Humulin R) 0 units SC .MILD SLIDING SCALE PRN PRN Reason: Mild Correctional Scale Last Admin: 12/18/16 17:17 Dose: 3 unit Insulin Human Regular (Humulin R) 0 units SC .BEDTIME SLIDING SC PRN PRN Reason: Bedtime Correctional Scale Latanoprost (Xalatan 0.005% Ophth Soln) 1 drop EA EYE HS [facility] Last Admin: 12/18/16 22:07 Dose: 1 drop Losartan Potassium (Cozaar) 25 mg PO DAILY [facility] Last Admin: 12/19/16 09:15 Dose: 25 mg Loteprednol Etabonate (Lotemax 0.5% Ophth Suspension) 1 drop EA EYE BID [facility] Last Admin: 12/19/16 09:17 Dose: 1 drop Miscellaneous Medication (Pharmacy To Dose) 1 each IVPB PRN PRN PRN Reason: Pharmacy to dose Hold Vancomycin For (Level >20) 0 each FS .AT DIALYSIS [facility] Ondansetron HCl (Zofran Odt) 4 mg PO Q6H PRN PRN Reason: Nausea/Vomiting Ondansetron HCl (Zofran) 4 mg IVP Q6H PRN PRN Reason: Nausea/Vomiting Pilocarpine HCl (Isopto Carpine 1% Ophth Soln) 1 drop EA EYE TID [facility] Last Admin: 12/19/16 09:16 Dose: 1 drop Senna (Senokot) 2 tab PO HSPRN PRN PRN Reason: Constipation Timolol Maleate (Timoptic 0.5% Ophth Soln) 1 drop EA EYE DAILY [facility] Last Admin: 12/19/16 09:25 Dose: 1 drop Tramadol HCl (Ultram) 50 mg PO Q12H PRN PRN Reason: Pain 1ST LINE Last Admin: 12/15/16 17:47 Dose: 50 mg Tramadol HCl (Ultram) 100 mg PO Q12H PRN PRN Reason: Pain 2ND LINE
--- NOTE | 2016-12-19 12:22 | ADD-DIS ---
ADDENDUM This patient was planned for discharge yesterday, but she was waiting for her insurance authorizatio n and that is why she stayed in the hospital for an extra night. Today, we have approval from her i evaristourance, patient is also due for dialysis. The patient is planned for discharge today and subseque ntly she will get dialysis through her regular dialysis center. The patient is medically stable for discharge. There is no change in her discharge medication as we ll as discharge summary. Please see my discharge summary dictated from yesterday. Patient was seen and examined at bedside. Please see my progress note from today for further details.
== END 2016-12-19 11:12 | DRG 592 ==
LOC: ERS 12:01 → T4-A 14:39
PROVIDERS: ADMIT Internal Medicine; ATTEND Internal Medicine
PROC: 5A1D70Z Performance of Urinary Filtration, Intermittent, Less than 6 Hours Per Day (ICD-10-PCS; principal; 2016-12-16)
PROC: 5A1D70Z Performance of Urinary Filtration, Intermittent, Less than 6 Hours Per Day (ICD-10-PCS; 2016-12-17)
DX: L97.823 Non-pressure chronic ulcer of other part of left lower leg with necrosis of muscle (principal); N18.6 End stage renal disease; I13.2 Hypertensive heart and chronic kidney disease with heart failure and with stage 5 chronic kidney disease, or end stage renal disease; E44.0 Moderate protein-calorie malnutrition; R78.81 Bacteremia; I50.32 Chronic diastolic (congestive) heart failure; Z68.1 Body mass index [BMI] 19.9 or less, adult; B95.61 Methicillin susceptible Staphylococcus aureus infection as the cause of diseases classified elsewhere; E11.51 Type 2 diabetes mellitus with diabetic peripheral angiopathy without gangrene; E11.22 Type 2 diabetes mellitus with diabetic chronic kidney disease; I50.84 End stage heart failure; Z99.2 Dependence on renal dialysis; D63.1 Anemia in chronic kidney disease; Z89.511 Acquired absence of right leg below knee; K21.9 Gastro-esophageal reflux disease without esophagitis; I25.10 Atherosclerotic heart disease of native coronary artery without angina pectoris; Z91.041 Radiographic dye allergy status; E11.319 Type 2 diabetes mellitus with unspecified diabetic retinopathy without macular edema; H54.40 Blindness, one eye, unspecified eye; H40.9 Unspecified glaucoma
CPT/HCPCS: 36415; 36416; 80048; 80053; 80202; 83605; 85025; 85610; 85652; 85730; 86140; 87040; 87077; 87149; 87186; 90935; 96361; 96365; 96368; 96375; G0257; G8978-GP-CN; G8979-GP-CM; J0360; J1644; J1815; J2185; J2270; J3370; J7050; Q4081

== ENCOUNTER 2016-12-26 07:12 | Inpatient (IN) | payer MEDICARE ==
[2016-12-26] MEDS ORDERED: CEFAZOLIN/Water 2 GM/20 ML SYRINGE ONE ×2 (07:23→07:57)
[2016-12-26 07:59] LABS: #Eosinphils 0.1 thou/uL (0.0-0.7); #Lymphocytes 1.4 thou/uL (1.20-3.40); #Monocytes 0.5 thou/uL (0.11-0.59); #Neutrophils 11.1 thou/uL (1.40-6.50); %Basophils 0.1 % (0.0-1.0); %Eosinophils 0.6 % (0.0-10.0); %Lymphocytes 10.6 % (21.0-51.0); %Monocytes 3.6 % (0.0-10.0); Hematocrit 39.5 % (36.0-47.0); Mean Platelet Volume 7.4 fL (7.4-10.4); Red Blood Cell (RBC) Count 4.45 mill/uL (4.20-5.40); White Blood Cell (WBC) Count 13.1 thou/uL (4.8-10.8)
[2016-12-26] MEDS ORDERED: Albuterol Sulfate HFA (OR ONLY) ONE (08:06)
[2016-12-26] MEDS ORDERED: Fentanyl 100 MCG/2 ML VIAL ONE (08:06)
[2016-12-26 08:09] LABS: Anion Gap 23 mmol/L (10-20); BUN (Urea Nitrogen) 33 mg/dL (9.8-20.1); Calc. Creatinine Clearance 9 mL/min (70-130); Calcium 10.6 mg/dL (7.8-10.44); Carbon Dioxide 27 mmol/L (23-31); Chloride 97 mmol/L (98-107); Estimated GFR-MDRD 11
[2016-12-26] MEDS ORDERED: Promethazine HCl 25 MG/ML VIAL ONE (08:27)
[2016-12-26] MEDS ORDERED: Scopolamine 1.5 mg/72 hour Patch ONE (08:28)
[2016-12-26] MEDS ORDERED: Metoclopramide HCl 10 MG/2 ML VIAL ONE (08:43)
[2016-12-26] MEDS ORDERED: Lidocaine 1% PF 5 ML VIAL ONE (08:43)
[2016-12-26] MEDS ORDERED: Propofol 200 MG/20 ML VIAL ONE (08:43)
[2016-12-26] MEDS ORDERED: Glycopyrrolate 0.2 MG/ML 5 ML SYRINGE ONE (08:43)
[2016-12-26] MEDS ORDERED: Ondansetron HCl/PF 4 MG/2 ML Vial ONE (08:43)
[2016-12-26] MEDS ORDERED: PHENYLEPHRINE-NS 100 MCG/ML 10 ML SYRINGE ONE (08:43)
[2016-12-26] MEDS ORDERED: Ondansetron HCl/PF 4 MG/2 ML Vial IVP PRN ×2 (10:09→10:57)
[2016-12-26] MEDS ORDERED: Promethazine HCl 25 MG/ML VIAL IM PRN (10:09)
[2016-12-26] MEDS ORDERED: Promethazine HCl 25 MG/ML VIAL SLOW IVP PRN (10:09)
[2016-12-26] MEDS ORDERED: Dextrose 5% in Water 1,000 ML IV PRN (10:57)
[2016-12-26] MEDS ORDERED: Ondansetron ODT 4 MG TAB PO PRN (10:57)
[2016-12-26] MEDS ORDERED: Dextrose 50% Abboject 50 ML SYRINGE SLOW IVP PRN (10:57)
[2016-12-26] MEDS ORDERED: traMADol HCl 50 MG TAB PO PRN (11:01)
[2016-12-26] MEDS ORDERED: Ondansetron ODT 8 MG TAB PO PRN (11:05)
[2016-12-26] MEDS ORDERED: cloNIDine 0.1 MG TAB PO PRN (11:05)
[2016-12-26] MEDS ORDERED: ALPRAZolam 0.25 MG TAB PO PRN (11:05)
[2016-12-26] MEDS ORDERED: Acetaminophen 500 MG TAB PO SCH (11:15)
--- NOTE | 2016-12-26 12:56 | PDOC.PN ---
- Subjective Encounter Start Date: 12/26/16 Encounter Start Time: 12:54 -: old records requested/rev Patient seen and examined. No new complaints. No overnight events, s/p left BKA - Objective MAR Reviewed: Yes Vital Signs & Weight: Weight Weight 112 lb 2 oz Result Diagrams: 12/26/16 07:43 12/26/16 07:43 Additional Labs: Accuchecks 12/26/16 07:40 POC Glucose 90 Phys Exam - Physical Examination Constitutional: NAD HEENT: PERRLA, moist MMs, sclera anicteric Neck: no JVD, supple Respiratory: no wheezing, no rales, no rhonchi Cardiovascular: RRR, no significant murmur, no rub Gastrointestinal: soft, non-tender, no distention, positive bowel sounds both BKA Neurological: moves all 4 limbs Lymphatic: no nodes Psychiatric: normal affect Skin: no rash, normal turgor Dx/Plan (1) Status post below knee amputation of left lower extremity Code(s): Z89.512 - ACQUIRED ABSENCE OF LEFT LEG BELOW KNEE Status: Acute (2) Anemia of renal disease Code(s): D63.1 - ANEMIA IN CHRONIC KIDNEY DISEASE Status: Chronic (3) DM type 2 (diabetes mellitus, type 2) Status: Chronic (4) ESRD (end stage renal disease) on dialysis Code(s): N18.6 - END STAGE RENAL DISEASE; Z99.2 - DEPENDENCE ON RENAL DIALYSIS Status: Chronic Comment: on HD (5) Glaucoma Code(s): H40.9 - UNSPECIFIED GLAUCOMA Status: Chronic (6) HTN (hypertension) Code(s): I10 - ESSENTIAL (PRIMARY) HYPERTENSION Status: Chronic (7) History of right below knee amputation Code(s): Z89.511 - ACQUIRED ABSENCE OF RIGHT LEG BELOW KNEE Status: Chronic (8) PVD (peripheral vascular disease) Code(s): I73.9 - PERIPHERAL VASCULAR DISEASE, UNSPECIFIED Status: Chronic Comment: h/o right BKA and now with left BKA (9) Protein-calorie malnutrition, moderate Code(s): E44.0 - MODERATE PROTEIN-CALORIE MALNUTRITION Status: Chronic - Plan cont current plan of care, plan discussed w/ family * medication reviewed as below * symptomatic treatment * resume home medication * discussed with family bedside * updated plan to nursing. Review of Systems - Review of Systems ENT: negative: Ear Pain, Ear Discharge, Nose Pain, Nose Discharge, Nose Congestion, Mouth Pain, Mouth Swelling, Throat Pain, Throat Swelling, Other Respiratory: negative: Cough, Dry, Shortness of Breath, Hemoptysis, SOB with Excertion, Pleuritic Pain, Sputum, Wheezing Cardiovascular: negative: Chest Pain, Palpitations, Orthopnea, Paroxysmal Noc. Dyspnea, Edema, Light Headedness, Other Gastrointestinal: negative: Nausea, Vomiting, Abdominal Pain, Diarrhea, Constipation, Melena, Hematochezia, Other Genitourinary: negative: Dysuria, Frequency, Incontinence, Hematuria, Retention , Other Skin: negative: Rash, Lesions, Lul, Bruising, Other - Medications/Allergies Allergies/Adverse Reactions: Allergies Allergy/AdvReac Type Severity Reaction Status Date / Time Iodine and Iodide Containing Allergy Intermediate VOMITING, Verified 12/15/16 16 :54 Produc RASH shrimp Allergy Verified 12/15/16 16:54 Medications: Current Medications Acetaminophen (Tylenol) 1,000 mg PO ONE [facility] Stop: 12/26/16 13:00 Acetaminophen/Codeine Phosphate (Tylenol #3) 1 tab PO BID [facility] Hydrocodone Bitart/Acetaminophen ([place] 5/325) 1 tab PO Q4H PRN PRN Reason: Pain Alprazolam (Xanax) 0.25 mg PO BID PRN PRN Reason: Anxiety Aspirin (Aspirin Chewable) 81 mg PO DAILY [facility] Brimonidine Tartrate (Alphagan 0.2% Ophth Soln) 1 drop EA EYE DAILY [facility] Brinzolamide (Azopt 1% Ophth Soln) 1 drop EA EYE BID [facility] Calcium Acetate (Phoslo) 667 mg PO TID-[facility] Carvedilol (Coreg) 25 mg PO DAILY [facility] Clonidine (Catapres) 0.1 mg PO BIDPRN PRN PRN Reason: SBP GREATER THAN 160 Dextrose/Water (Dextrose 50%) 25 gm SLOW IVP PRN PRN PRN Reason: Hypoglycemia Fentanyl (Pacu-Sublimaze) 50 mcg SLOW IVP Q10MIN PRN PRN Reason: Moderate to Severe Pain (6-10) Stop: 12/26/16 13:09 Glucagon (Glucagon) 1 mg IM PRN PRN PRN Reason: Hypoglycemia Hydralazine HCl (Apresoline) 25 mg PO DAILY [facility] Hydralazine HCl (Apresoline) 10 mg SLOW IVP Q4H PRN PRN Reason: SBP > 170 or DBP > 100 Dextrose/Water (D5w) 1,000 mls @ 0 mls/hr IV .Q0M PRN; As Directed PRN Reason: Hypoglycemia Insulin Detemir 10 units/ (Syringe) 1.1 mls @ 66 mls/hr SC BID [facility] Insulin Human Regular (Humulin R) 0 units SC .MILD SLIDING SCALE PRN PRN Reason: Mild Correctional Scale Latanoprost (Xalatan 0.005% Ophth Soln) 1 drop EA EYE HS [facility] Losartan Potassium (Cozaar) 25 mg PO DAILY [facility] Loteprednol Etabonate (Lotemax 0.5% Ophth Suspension) 1 drop EA EYE BID [facility] Ondansetron HCl (Pacu-Zofran) 4 mg IVP ONE PRN PRN Reason: Nausea/Vomiting Stop: 12/26/16 13:09 Ondansetron HCl (Zofran Odt) 4 mg PO Q6H PRN PRN Reason: Nausea/Vomiting Ondansetron HCl (Zofran Odt) 8 mg PO PRN PRN PRN Reason: Nausea Ondansetron HCl (Zofran) 4 mg IVP Q6H PRN PRN Reason: Nausea Pilocarpine HCl (Isopto Carpine 1% Ophth Soln) 1 drop EA EYE TID [facility] Polyethylene Glycol (Miralax) 17 gm PO DAILY [facility] Promethazine HCl (Pacu-Phenergan) 6.25 mg SLOW IVP ONE PRN PRN Reason: Nausea/Vomiting Stop: 12/26/16 13:09 Promethazine HCl (Pacu-Phenergan) 6.25 mg IM ONE PRN PRN Reason: Nausea/Vomiting Stop: 12/26/16 13:09 Sodium Chloride (Flush - Normal Saline) 10 ml IVF PRN PRN PRN Reason: Saline Flush Timolol Maleate (Timoptic 0.5% Ophth Soln) 1 drop EA EYE DAILY [facility] Tramadol HCl (Ultram) 50 mg PO Q6H PRN PRN Reason: Pain Tramadol HCl (Ultram) 100 mg PO Q6H PRN PRN Reason: Pain
[2016-12-26] MEDS: Calcium Acetate 667 MG CAP PO SCH ×2 (13:45→18:53)
[2016-12-26] MEDS ORDERED: Sodium Chloride 0.9% 500 ML IVPB SCH (14:18)
--- NOTE | 2016-12-26 16:13 | EKG ---
Test Reason : PREOP Blood Pressure : / mmHG Vent. Rate : 092 BPM Atrial Rate : 092 BPM P-R Int : 152 ms QRS Dur : 072 ms QT Int : 360 ms P-R-T Axes : 054 000 058 degrees QTc Int : 445 ms Normal sinus rhythm Normal ECG When compared with ECG of 31-OCT-2016 10:37, QT has shortened Confirmed by DR. Christina RICH ([id number]) on 12/26/2016 4:12:54 PM Referred By: SILVIA Confirmed By:DR. Christina RICH
[2016-12-26 16:40] LABS: #Lymphocytes 1.2 thou/uL (1.20-3.40); #Monocytes 0.6 thou/uL (0.11-0.59); #Neutrophils 11.4 thou/uL (1.40-6.50); %Basophils 0.2 % (0.0-1.0); %Eosinophils 0.4 % (0.0-10.0); %Lymphocytes 9.2 % (21.0-51.0); %Monocytes 4.5 % (0.0-10.0); Hematocrit 28.9 % (36.0-47.0); Mean Platelet Volume 7.1 fL (7.4-10.4); Red Blood Cell (RBC) Count 3.33 mill/uL (4.20-5.40); White Blood Cell (WBC) Count 13.3 thou/uL (4.8-10.8)
[2016-12-26 16:53] LABS: Anion Gap 17 mmol/L (10-20); BUN (Urea Nitrogen) 37 mg/dL (9.8-20.1); Calc. Creatinine Clearance 9 mL/min (70-130); Calcium 9.2 mg/dL (7.8-10.44); Carbon Dioxide 32 mmol/L (23-31); Chloride 98 mmol/L (98-107); Estimated GFR-MDRD 10
[2016-12-26] MEDS: Pilocarpine 1% Ophth Drops 15 ML BOT EA EYE SCH ×2 (18:13→22:48)
[2016-12-26] MEDS ORDERED: Non-Formulary Item 1 EACH (Insulin Glargine,Hum.Rec.Anlog [Basaglar Kwikpen U-100] 10 UNI SQ SCH (21:00)
[2016-12-26] MEDS: INSULIN DETEMIR SC SCH (22:36)
[2016-12-26] MEDS: Acetaminophen/Codeine 30-300mg Tablet PO SCH (22:37)
[2016-12-26] MEDS: Loteprednol Etabonate 0.5% Ophth Suspension 5 ml Bottle EA EYE SCH (22:44)
[2016-12-26] MEDS: Latanoprost 0.005% Ophth Soln 2.5 ml Bottle EA EYE SCH (22:48)
[2016-12-26] MEDS: Brinzolamide 1% Ophth Soln 10 ml Bottle EA EYE SCH (22:49)
--- NOTE | 2016-12-26 23:33 | OP ---
DATE OF PROCEDURE: 12/26/2016 PREOPERATIVE DIAGNOSES: End-stage renal disease; expose anterior tibialis tendon, Achilles tendon f rom wounds left lower leg with and intractable pain. POSTOPERATIVE DIAGNOSES: End-stage renal disease; expose anterior tibialis tendon, Achilles tendon from wounds left lower leg with and intractable pain. PROCEDURE: Left [id number] amputation. SURGEON: Keo Russell M.D. ANESTHESIA: General. Local none. PROCEDURE IN DETAIL: The patient taken to the operating room where under general anesthesia, left l ower extremity was prepared with chloraprep, draped in routine fashion. Coban was used and permeable stockinette to sequester the lower extremity wounds. Incision was made for left [id number] amp utation with long posterior flap and carried down through the skin and subcutaneous tissue, fascia, dividing muscle bundles with the cautery and vascular bundles were divided between clamps and ligate d with 2-0 silk ties. Tibia cleared proximally and transected with Gigli saw, beveling the anterior edge cephalad, smoothing the edges with a rasp. Fibula transected an inch above the cut edge of th e tibia. Good hemostasis noted and obtained with the cautery. The fibula had been transected with a bone cutter an inch above the cut edge of the tibia. Good hemostasis noted. Irrigant evacuated. Fascia approximated with 2-0 Vicryl, skin with mushtaq, sterile dressing applied, and fiberglass sp lint applied to prevent contracture. The patient tolerated the procedure well.
[2016-12-27 04:35] LABS: Anion Gap 17 mmol/L (10-20); BUN (Urea Nitrogen) 39 mg/dL (9.8-20.1); Calc. Creatinine Clearance 8 mL/min (70-130); Calcium 9.4 mg/dL (7.8-10.44); Carbon Dioxide 33 mmol/L (23-31); Chloride 101 mmol/L (98-107); Estimated GFR-MDRD 9
[2016-12-27 04:40] LABS: #Basophils 0.1 thou/uL (0.0-0.2); #Lymphocytes 1.7 thou/uL (1.20-3.40); #Monocytes 0.9 thou/uL (0.11-0.59); #Neutrophils 10.2 thou/uL (1.40-6.50); %Basophils 0.6 % (0.0-1.0); %Eosinophils 0.3 % (0.0-10.0); %Lymphocytes 13.1 % (21.0-51.0); %Monocytes 7.2 % (0.0-10.0); Hematocrit 32.8 % (36.0-47.0); Mean Platelet Volume 7.4 fL (7.4-10.4); Red Blood Cell (RBC) Count 3.73 mill/uL (4.20-5.40)
[2016-12-27] MEDS: Calcium Acetate 667 MG CAP PO SCH ×3 (08:19→18:31)
[2016-12-27] MEDS: Losartan Potassium 25 MG TAB PO SCH (08:19)
[2016-12-27] MEDS: Brinzolamide 1% Ophth Soln 10 ml Bottle EA EYE SCH ×2 (08:21→21:46)
[2016-12-27] MEDS: Pilocarpine 1% Ophth Drops 15 ML BOT EA EYE SCH ×3 (08:21→21:47)
[2016-12-27] MEDS: Brimonidine Tartrate 0.2% Ophth Soln 5 ml Bottle EA EYE SCH (08:32)
[2016-12-27] MEDS: Acetaminophen/Codeine 30-300mg Tablet PO SCH ×3 (08:34→19:36)
[2016-12-27] MEDS: INSULIN DETEMIR SC SCH (08:35)
[2016-12-27] MEDS: Timolol 0.5% Ophth Soln 5 ml Bottle EA EYE SCH (08:36)
[2016-12-27] MEDS: Loteprednol Etabonate 0.5% Ophth Suspension 5 ml Bottle EA EYE SCH (09:00)
[2016-12-27] MEDS: Polyethylene Glycol 3350 17 GM Packet PO SCH (09:30)
--- NOTE | 2016-12-27 11:22 | PDOC.PN ---
- Subjective Encounter Start Date: 12/27/16 Encounter Start Time: 07:15 Patient seen and examined. No new complaints. No overnight events - Objective Resuscitation Status: Resuscitation Status FULL:Full Resuscitation MAR Reviewed: Yes Vital Signs & Weight: Vital Signs (12 hours) Temp Pulse Resp BP BP Pulse Ox 12/27/16 08:36 80 121/76 12/27/16 07:50 97.8 F 80 14 121/76 96 12/27/16 04:19 98.4 F 83 18 116/66 92 L 12/27/16 00:26 98.1 F 88 18 107/51 L 95 Weight Weight 112 lb 2 oz I&O: 12/26/16 12/27/16 12/28/16 06:59 06:59 05:59 Intake Total 1875 Balance 1875 Result Diagrams: 12/27/16 03:42 12/27/16 03:42 Additional Labs: Accuchecks 12/27/16 12/27/16 12/26/16 08:52 08:22 22:28 POC Glucose 50 L* 40 L* 117 H Phys Exam - Physical Examination Constitutional: NAD HEENT: PERRLA, moist MMs, sclera anicteric Neck: no JVD, supple Respiratory: no wheezing, no rales, no rhonchi Cardiovascular: RRR, no significant murmur, no rub Gastrointestinal: soft, non-tender, no distention, positive bowel sounds bilateral BKA Lymphatic: no nodes Psychiatric: normal affect Skin: no rash, normal turgor Dx/Plan (1) Status post below knee amputation of left lower extremity Code(s): Z89.512 - ACQUIRED ABSENCE OF LEFT LEG BELOW KNEE Status: Acute (2) Anemia of renal disease Code(s): D63.1 - ANEMIA IN CHRONIC KIDNEY DISEASE Status: Chronic (3) DM type 2 (diabetes mellitus, type 2) Status: Chronic (4) ESRD (end stage renal disease) on dialysis Code(s): N18.6 - END STAGE RENAL DISEASE; Z99.2 - DEPENDENCE ON RENAL DIALYSIS Status: Chronic Comment: on HD (5) Glaucoma Code(s): H40.9 - UNSPECIFIED GLAUCOMA Status: Chronic (6) HTN (hypertension) Code(s): I10 - ESSENTIAL (PRIMARY) HYPERTENSION Status: Chronic (7) History of right below knee amputation Code(s): Z89.511 - ACQUIRED ABSENCE OF RIGHT LEG BELOW KNEE Status: Chronic (8) PVD (peripheral vascular disease) Code(s): I73.9 - PERIPHERAL VASCULAR DISEASE, UNSPECIFIED Status: Chronic Comment: h/o right BKA and now with left BKA (9) Protein-calorie malnutrition, moderate Code(s): E44.0 - MODERATE PROTEIN-CALORIE MALNUTRITION Status: Chronic (10) Hypoglycemia associated with type 2 diabetes mellitus Code(s): E11.649 - TYPE 2 DIABETES MELLITUS WITH HYPOGLYCEMIA WITHOUT COMA Status: Acute - 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 Review of Systems - Review of Systems Constitutional: negative: Fever, Chills, Sweats, Weakness, Malaise, Other ENT: negative: Ear Pain, Ear Discharge, Nose Pain, Nose Discharge, Nose Congestion, Mouth Pain, Mouth Swelling, Throat Pain, Throat Swelling, Other Respiratory: negative: Cough, Dry, Shortness of Breath, Hemoptysis, SOB with Excertion, Pleuritic Pain, Sputum, Wheezing Cardiovascular: negative: Chest Pain, Palpitations, Orthopnea, Paroxysmal Noc. Dyspnea, Edema, Light Headedness, Other Gastrointestinal: negative: Nausea, Vomiting, Abdominal Pain, Diarrhea, Constipation, Melena, Hematochezia, Other Genitourinary: negative: Dysuria, Frequency, Incontinence, Hematuria, Retention , Other Skin: negative: Rash, Lesions, Lul, Bruising, Other - Medications/Allergies Allergies/Adverse Reactions: Allergies Allergy/AdvReac Type Severity Reaction Status Date / Time Iodine and Iodide Containing Allergy Intermediate VOMITING, Verified 12/15/16 16 :54 Produc RASH shrimp Allergy Verified 12/15/16 16:54 Medications: Current Medications Acetaminophen/Codeine Phosphate (Tylenol #3) 1 tab PO BID [facility] Last Admin: 12/27/16 09:55 Dose: 1 tab Hydrocodone Bitart/Acetaminophen ([place] 5/325) 1 tab PO Q4H PRN PRN Reason: Pain Alprazolam (Xanax) 0.25 mg PO BID PRN PRN Reason: Anxiety Aspirin (Aspirin Chewable) 81 mg PO DAILY [facility] Last Admin: 12/27/16 08:19 Dose: 81 mg Brimonidine Tartrate (Alphagan 0.2% Oph Soln) 1 drop EA EYE DAILY [facility] Last Admin: 12/27/16 08:32 Dose: 1 drop Brinzolamide (Azopt 1% Ophth Soln) 1 drop EA EYE BID [facility] Last Admin: 12/27/16 08:21 Dose: 1 drop Calcium Acetate (Phoslo) 667 mg PO TID-[facility] Last Admin: 12/27/16 08:19 Dose: 667 mg Carvedilol (Coreg) 25 mg PO DAILY [facility] Clonidine (Catapres) 0.1 mg PO BIDPRN PRN PRN Reason: SBP GREATER THAN 160 Dextrose/Water (Dextrose 50%) 25 gm SLOW IVP PRN PRN PRN Reason: Hypoglycemia Last Admin: 12/27/16 08:51 Dose: 25 gm Epoetin Ryan (Procrit) 7,500 units SC Q7D@1200 [facility] Glucagon (Glucagon) 1 mg IM PRN PRN PRN Reason: Hypoglycemia Hydralazine HCl (Apresoline) 25 mg PO DAILY [facility] Hydralazine HCl (Apresoline) 10 mg SLOW IVP Q4H PRN PRN Reason: SBP > 170 or DBP > 100 Dextrose/Water (D5w) 1,000 mls @ 0 mls/hr IV .Q0M PRN; As Directed PRN Reason: Hypoglycemia Insulin Human Regular (Humulin R) 0 units SC .MILD SLIDING SCALE PRN PRN Reason: Mild Correctional Scale Latanoprost (Xalatan 0.005% Ophth Soln) 1 drop EA EYE HS [facility] Last Admin: 12/26/16 22:48 Dose: 1 drop Losartan Potassium (Cozaar) 25 mg PO DAILY [facility] Last Admin: 12/27/16 08:19 Dose: 25 mg Loteprednol Etabonate (Lotemax 0.5% Ophth Suspension) 1 drop EA EYE BID [facility] Last Admin: 12/26/16 22:44 Dose: Not Given Ondansetron HCl (Zofran Odt) 4 mg PO Q6H PRN PRN Reason: Nausea/Vomiting Ondansetron HCl (Zofran Odt) 8 mg PO PRN PRN PRN Reason: Nausea Ondansetron HCl (Zofran) 4 mg IVP Q6H PRN PRN Reason: Nausea Pilocarpine HCl (Isopto Carpine 1% Ophth Soln) 1 drop EA EYE TID [facility] Last Admin: 12/27/16 08:21 Dose: 1 drop Polyethylene Glycol (Miralax) 17 gm PO DAILY [facility] Sodium Chloride (Flush - Normal Saline) 10 ml IVF PRN PRN PRN Reason: Saline Flush Timolol Maleate (Timoptic 0.5% Ophth Soln) 1 drop EA EYE DAILY [facility] Last Admin: 12/27/16 08:36 Dose: 1 drop Tramadol HCl (Ultram) 50 mg PO Q6H PRN PRN Reason: Pain Tramadol HCl (Ultram) 100 mg PO Q6H PRN PRN Reason: Pain
[2016-12-27] MEDS ORDERED: Epoetin (ESRD) 20,000 UNITS/ML SC SCH (12:00)
--- NOTE | 2016-12-27 12:22 | PRG ---
DATE OF SERVICE: 12/27/2016 SUBJECTIVE: Ms. Frias is a 66-year-old black female with ESRD and admitted for chronic left leg in [facility]. She underwent a left BKA. Doing well. She is currently undergoing dialysis. I am at the bedside supervising her dialysis. Of note, the patient became hypoglycemic early this morning. Hakeem gorman was given D50 1 vial as IV. She is getting p.r.n. apple juice p.o. She is mentating well. No complaints of chest pain or shortness of breath. PHYSICAL EXAMINATION: VITAL SIGNS: Blood pressure is 137/80, heart rate is noted at 70, respiratory rate 12, pulse ox 96% , temperature 97.8. GENERAL: Awake, alert, comfortable, supine, not in distress. SKIN: Adequate turgor. HEENT: She has slightly pale conjunctivae, anicteric sclerae. Decreased visual acuity. NECK: No neck mass, no carotid bruit, no JVD. LUNGS: Clear breath sounds. No wheezing, no crackles. HEART: Normal sinus rhythm. No murmur, no gallops or rubs. ABDOMEN: Globular, soft, nontender, no masses. EXTREMITIES: Bilateral BKA. NEUROLOGIC: Awake, oriented to 3 spheres. Moving all extremities, no tremors. MEDICATIONS: 12/27/2016 - Reviewed. LABORATORY: 12/27/2016 - White count 13, hemoglobin 9.7, sodium 146, potassium, 101 chloride 33, po tassium 5.1, BUN 39, creatinine 5.6, calcium 9.4. ASSESSMENT AND PLAN: 1. Hypoglycemia earlier, blood sugar was reported as 40 - was given D50 water, 1 vial. Manisha sanchez. 2. Anemia. Start Epogen 7500 units subcutaneously every week. 3. End-stage renal disease, stable. We will continue current Thursday, Thursday, Thursday dialysis. Please note the patient missed her dialysis yesterday and for this reason, we will continue her dial ysis regimen today. We will do 3-1/2 hours without any heparin due to the recent surgery. Attempt a 2 liter fluid removal as tolerated by the patient. 4. Peripheral vascular disease. The patient is status post left [id number] amputation. Surgery is following. We will recheck basic metabolic panel and CBC in a.m.
[2016-12-27] MEDS: hydrALAZINE 25 MG TAB PO SCH (18:30)
[2016-12-27] MEDS: HYDROcodone/Acetaminophen 5/325 mg Tablet PO PRN (18:31)
[2016-12-27] MEDS: Carvedilol 25 MG TAB PO SCH (18:31)
[2016-12-27] MEDS: Latanoprost 0.005% Ophth Soln 2.5 ml Bottle EA EYE SCH (21:47)
[2016-12-27] MEDS: Epoetin (ESRD) 20,000 UNITS/ML SC SCH (21:50)
[2016-12-28 04:37] LABS: #Basophils 0.1 thou/uL (0.0-0.2); #Eosinphils 0.3 thou/uL (0.0-0.7); #Lymphocytes 1.4 thou/uL (1.20-3.40); #Monocytes 1.2 thou/uL (0.11-0.59); #Neutrophils 10.9 thou/uL (1.40-6.50); %Basophils 0.7 % (0.0-1.0); %Eosinophils 1.8 % (0.0-10.0); %Lymphocytes 9.9 % (21.0-51.0); %Monocytes 8.8 % (0.0-10.0); Hematocrit 33.8 % (36.0-47.0); Mean Platelet Volume 7.2 fL (7.4-10.4); Red Blood Cell (RBC) Count 3.79 mill/uL (4.20-5.40); White Blood Cell (WBC) Count 13.9 thou/uL (4.8-10.8)
[2016-12-28 04:38] LABS: Anion Gap 17 mmol/L (10-20); BUN (Urea Nitrogen) 22 mg/dL (9.8-20.1); Calc. Creatinine Clearance 11 mL/min (70-130); Calcium 9.3 mg/dL (7.8-10.44); Carbon Dioxide 29 mmol/L (23-31); Chloride 102 mmol/L (98-107); Estimated GFR-MDRD 14
[2016-12-28] MEDS: Brinzolamide 1% Ophth Soln 10 ml Bottle EA EYE SCH ×2 (08:59→20:43)
[2016-12-28] MEDS: Pilocarpine 1% Ophth Drops 15 ML BOT EA EYE SCH ×3 (09:00→20:43)
[2016-12-28] MEDS: Carvedilol 25 MG TAB PO SCH (09:35)
[2016-12-28] MEDS: Calcium Acetate 667 MG CAP PO SCH ×3 (09:35→17:23)
[2016-12-28] MEDS: Losartan Potassium 25 MG TAB PO SCH (09:35)
[2016-12-28] MEDS: hydrALAZINE 25 MG TAB PO SCH (09:36)
[2016-12-28] MEDS: Acetaminophen/Codeine 30-300mg Tablet PO SCH ×2 (09:36→20:41)
[2016-12-28] MEDS: Timolol 0.5% Ophth Soln 5 ml Bottle EA EYE SCH (09:38)
[2016-12-28] MEDS: Brimonidine Tartrate 0.2% Ophth Soln 5 ml Bottle EA EYE SCH (09:39)
[2016-12-28] MEDS: Polyethylene Glycol 3350 17 GM Packet PO SCH (09:40)
--- NOTE | 2016-12-28 10:12 | PRG ---
DATE OF SERVICE: 12/28/2016 SERVICE: Renal Medicine. SUBJECTIVE: Ms. Frias is a 66-year-old black female who was ESRD underwent hemodialysis yesterday, no difficulty was noted. She tolerated the said dialysis treatment. She was also hypoglycemic at that time and was given 1 vial of D50. This morning, she had some nausea and vomiting. She has bee n getting Zofran. This could be related from her pain medication, she was given [place] last night. If this is persistent, consider starting the patient on Reglan. No complaint of chest pain or short ness of breath. OBJECTIVE: VITAL SIGNS: Blood pressure is 169/76, heart rate 83, respiratory rate 16, temperature 98.4, pulse ox 93%. GENERAL: Noted to be awake, sitting comfortable, not in distress. SKIN: Adequate turgor. HEENT: She has pinkish conjunctivae, anicteric sclerae. Positive for chronic blindness. NECK: No neck mass, no carotid bruits, no JVD. LUNGS: Clear breath sounds. No wheezing, no crackles. HEART: Normal sinus rhythm. No murmur, no gallops or rubs. ABDOMEN: Globular, soft, nontender, no masses. EXTREMITIES: Bilateral BKA. NEUROLOGIC: Awake, oriented to 3 spheres. Decreased visual acuity. No tremors, no asterixis. MEDICATIONS: Of 12/28/2016 was reviewed. LABORATORY DATA: Of 12/28/2016, white count 13.9, hemoglobin 9.9, sodium 144, potassium 4.1, chlorid e is 102, carbon dioxide 29, BUN 22, creatinine 3.95, glucose 119, calcium 9.3. ASSESSMENT AND PLAN: 1. Hypoglycemia, resolved off Levemir. On sliding scale insulin. 2. End-stage renal disease, stable. There is no indication for any dialytic intervention. So far, she is tolerating current dialysis regimen. My plan is to resume back to Thursday, Thursday, Thursday dialysis regimen with this patient. 3. Anemia - continue weekly Epogen. 4. Peripheral vascular disease, status post bacteremia - status post left BKA. Surgery is followin g. 5. Nausea and vomiting, p.r.n. Zofran. If needed, resume Reglan. 6. Recheck basic met and CBC in a.m.
--- NOTE | 2016-12-28 11:09 | PDOC.PN ---
- Subjective Encounter Start Date: 12/28/16 Encounter Start Time: 08:15 Subjective: is awake, not in distress -: vomited this am ?coffee ground - Objective Resuscitation Status: Resuscitation Status FULL:Full Resuscitation MAR Reviewed: Yes Vital Signs & Weight: Vital Signs (12 hours) Temp Pulse Resp BP BP Pulse Ox 12/28/16 09:38 83 169/76 H 12/28/16 09:36 83 169/76 H 12/28/16 08:15 98.4 F 83 16 169/76 H 93 L 12/28/16 04:00 98.7 F 82 14 124/78 95 12/28/16 00:27 98.9 F 83 14 158/72 H 96 Weight Weight 109 lb I&O: 12/27/16 12/28/16 12/29/16 07:59 06:59 06:59 Intake Total Balance Result Diagrams: 12/28/16 03:17 12/28/16 03:17 Additional Labs: Accuchecks 12/28/16 12/27/16 12/27/16 05:36 20:09 15:58 POC Glucose 103 114 H 114 H Phys Exam - Physical Examination HEENT: PERRLA, moist MMs Neck: no JVD, supple Respiratory: no wheezing, no rales Cardiovascular: RRR, no significant murmur Gastrointestinal: soft, non-tender, no distention, positive bowel sounds Musculoskeletal: pulses present left bka in dressing Neurological: non-focal, moves all 4 limbs Dx/Plan (1) Hypoglycemia associated with type 2 diabetes mellitus Code(s): E11.649 - TYPE 2 DIABETES MELLITUS WITH HYPOGLYCEMIA WITHOUT COMA Status: Acute (2) Status post below knee amputation of left lower extremity Code(s): Z89.512 - ACQUIRED ABSENCE OF LEFT LEG BELOW KNEE Status: Acute (3) Anemia of renal disease Code(s): D63.1 - ANEMIA IN CHRONIC KIDNEY DISEASE Status: Chronic (4) DM type 2 (diabetes mellitus, type 2) Status: Chronic Qualifiers: Diabetes mellitus complication status: with kidney complications Diabetes mellitus detention insulin use: with detention use Chronic kidney disease stage: on chronic dialysis (5) ESRD (end stage renal disease) on dialysis Code(s): N18.6 - END STAGE RENAL DISEASE; Z99.2 - DEPENDENCE ON RENAL DIALYSIS Status: Chronic Comment: on HD (6) Glaucoma Code(s): H40.9 - UNSPECIFIED GLAUCOMA Status: Chronic Qualifiers: Glaucoma type: unspecified (7) HTN (hypertension) Code(s): I10 - ESSENTIAL (PRIMARY) HYPERTENSION Status: Chronic Qualifiers: Hypertension type: essential hypertension Qualified Code(s): I10 - Essential (primary) hypertension (8) History of right below knee amputation Code(s): Z89.511 - ACQUIRED ABSENCE OF RIGHT LEG BELOW KNEE Status: Chronic (9) PVD (peripheral vascular disease) Code(s): I73.9 - PERIPHERAL VASCULAR DISEASE, UNSPECIFIED Status: Chronic Comment: h/o right BKA and now with left BKA (10) Protein-calorie malnutrition, moderate Code(s): E44.0 - MODERATE PROTEIN-CALORIE MALNUTRITION Status: Chronic - Plan encourage po intake, fingerstick ranging from 50-103 -: is off levemir -: had 1 unit prbc with HD yesterday -: d/w daughter at bedside -: dc plan is to rehab * . Review of Systems - Medications/Allergies Allergies/Adverse Reactions: Allergies Allergy/AdvReac Type Severity Reaction Status Date / Time Iodine and Iodide Containing Allergy Intermediate VOMITING, Verified 12/15/16 16 :54 Produc RASH shrimp Allergy Verified 12/15/16 16:54 Medications: Current Medications Acetaminophen/Codeine Phosphate (Tylenol #3) 1 tab PO BID [facility] Last Admin: 12/28/16 09:36 Dose: 1 tab Hydrocodone Bitart/Acetaminophen ([place] 5/325) 1 tab PO Q4H PRN PRN Reason: Pain Last Admin: 12/27/16 18:31 Dose: 1 tab Alprazolam (Xanax) 0.25 mg PO BID PRN PRN Reason: Anxiety Aspirin (Aspirin Chewable) 81 mg PO DAILY [facility] Last Admin: 12/28/16 09:35 Dose: 81 mg Brimonidine Tartrate (Alphagan 0.2% Ophth Soln) 1 drop EA EYE DAILY [facility] Last Admin: 12/28/16 09:39 Dose: 1 drop Brinzolamide (Azopt 1% Ophth Soln) 1 drop EA EYE BID [facility] Last Admin: 12/28/16 08:59 Dose: 1 drop Calcium Acetate (Phoslo) 667 mg PO TID-WM [facility] Last Admin: 12/28/16 09:35 Dose: 667 mg Carvedilol (Coreg) 25 mg PO DAILY [facility] Last Admin: 12/28/16 09:35 Dose: 25 mg Clonidine (Catapres) 0.1 mg PO BIDPRN PRN PRN Reason: SBP GREATER THAN 160 Dextrose/Water (Dextrose 50%) 25 gm SLOW IVP PRN PRN PRN Reason: Hypoglycemia Last Admin: 12/27/16 08:51 Dose: 25 gm Epoetin Ryan (Procrit) 7,500 units SC Q7D@2000 [facility] Last Admin: 12/27/16 21:50 Dose: Not Given Glucagon (Glucagon) 1 mg IM PRN PRN PRN Reason: Hypoglycemia Hydralazine HCl (Apresoline) 25 mg PO DAILY [facility] Last Admin: 12/28/16 09:36 Dose: 25 mg Hydralazine HCl (Apresoline) 10 mg SLOW IVP Q4H PRN PRN Reason: SBP > 170 or DBP > 100 Dextrose/Water (D5w) 1,000 mls @ 0 mls/hr IV .Q0M PRN; As Directed PRN Reason: Hypoglycemia Insulin Human Regular (Humulin R) 0 units SC .MILD SLIDING SCALE PRN PRN Reason: Mild Correctional Scale Latanoprost (Xalatan 0.005% Ophth Soln) 1 drop EA EYE HS [facility] Last Admin: 12/27/16 21:47 Dose: 1 drop Losartan Potassium (Cozaar) 25 mg PO DAILY [facility] Last Admin: 12/28/16 09:35 Dose: 25 mg Loteprednol Etabonate (Lotemax 0.5% Ophth Suspension) 1 drop EA EYE BID [facility] Ondansetron HCl (Zofran Odt) 4 mg PO Q6H PRN PRN Reason: Nausea/Vomiting Ondansetron HCl (Zofran Odt) 8 mg PO PRN PRN PRN Reason: Nausea Last Admin: 12/28/16 08:55 Dose: 8 mg Ondansetron HCl (Zofran) 4 mg IVP Q6H PRN PRN Reason: Nausea Pantoprazole Sodium (Protonix) 40 mg PO DAILY [facility] Pantoprazole Sodium (Protonix) 40 mg PO 1130 [facility] Stop: 12/28/16 13:30 Pilocarpine HCl (Isopto Carpine 1% Ophth Soln) 1 drop EA EYE TID [facility] Last Admin: 12/28/16 09:00 Dose: 1 drop Polyethylene Glycol (Miralax) 17 gm PO DAILY [facility] Last Admin: 12/28/16 09:40 Dose: 17 gm Sodium Chloride (Flush - Normal Saline) 10 ml IVF PRN PRN PRN Reason: Saline Flush Timolol Maleate (Timoptic 0.5% Oph Sol) 1 drop EA EYE DAILY [facility] Last Admin: 12/28/16 09:38 Dose: 1 drop Tramadol HCl (Ultram) 50 mg PO Q6H PRN PRN Reason: Pain Tramadol HCl (Ultram) 100 mg PO Q6H PRN PRN Reason: Pain
[2016-12-28] MEDS: Gabapentin 100 MG CAP PO SCH (20:43)
[2016-12-28] MEDS: Latanoprost 0.005% Ophth Soln 2.5 ml Bottle EA EYE SCH (20:43)
[2016-12-28] MEDS: HYDROcodone/Acetaminophen 5/325 mg Tablet PO PRN (23:55)
[2016-12-29] MEDS: traMADol HCl 50 MG TAB PO PRN (01:08)
[2016-12-29 04:35] LABS: #Eosinphils 0.1 thou/uL (0.0-0.7); #Lymphocytes 1.5 thou/uL (1.20-3.40); #Neutrophils 8.3 thou/uL (1.40-6.50); %Basophils 0.2 % (0.0-1.0); %Eosinophils 1.3 % (0.0-10.0); %Lymphocytes 13.6 % (21.0-51.0); %Monocytes 8.7 % (0.0-10.0); Hematocrit 28.6 % (36.0-47.0); Mean Platelet Volume 7.5 fL (7.4-10.4); Red Blood Cell (RBC) Count 3.19 mill/uL (4.20-5.40); White Blood Cell (WBC) Count 10.9 thou/uL (4.8-10.8)
[2016-12-29 04:47] LABS: Anion Gap 14 mmol/L (10-20); BUN (Urea Nitrogen) 30 mg/dL (9.8-20.1); Calc. Creatinine Clearance 10 mL/min (70-130); Calcium 8.6 mg/dL (7.8-10.44); Carbon Dioxide 28 mmol/L (23-31); Chloride 100 mmol/L (98-107); Estimated GFR-MDRD 12
--- NOTE | 2016-12-29 09:19 | PRG ---
DATE OF SERVICE: 12/29/2016 SERVICE: Renal Medicine. SUBJECTIVE: Ms. Frias is a 66-year-old black female with ESRD and being following by the [facility] for her maintenance hemodialysis. She is currently at the dialysis unit. I am at the bedside, supervising her hemodialysis. She is intermittently confused. However, on close questioning, she denies any chest pain, shortness of breath, nausea or vomiting. PHYSICAL EXAMINATION: VITAL SIGNS: Blood pressure is 143/72, heart rate 66, respiratory rate 12, temperature 98, pulse ox 100%. GENERAL: Noted to be awake, alert, comfortable. SKIN: Adequate turgor. HEENT: She has slightly pale conjunctivae, anicteric sclerae. Decreased visual acuity. NECK: No neck mass, no carotid bruits, no JVD. LUNGS: Clear breath sounds. No wheezing or crackles. HEART: Normal sinus rhythm. No murmur, no gallops or rubs. ABDOMEN: Globular, soft, nontender, no masses. EXTREMITIES: Bilateral BKA. MEDICATIONS: Of 12/29/2016 was reviewed. LABORATORY DATA: Of 12/29/2016, white count 10.9, hemoglobin 8.7. Sodium 138, potassium 4.3, chlor maria esther 100, carbon dioxide 28, BUN 30, creatinine 4.52, GFR 12 mL per minute, glucose 141, calcium 8.6. ASSESSMENT AND PLAN: 1. End-stage renal disease, stable. Continue current Thursday, Thursday, Thursday hemodialysis. Flui d removal only as tolerated, no heparin use due to the recent surgery. 2. Hyperphosphatemia. Continuing PhosLo t.i.d. with meals. 3. Anemia. The patient currently on weekly Epogen 7500 units subcutaneous q.7 days. Adjust as nee ded. We will recheck basic metabolic panel and CBC in a.m.
[2016-12-29] MEDS: Calcium Acetate 667 MG CAP PO SCH ×3 (09:46→17:12)
[2016-12-29] MEDS: Polyethylene Glycol 3350 17 GM Packet PO SCH (09:46)
[2016-12-29] MEDS: Acetaminophen/Codeine 30-300mg Tablet PO SCH ×2 (09:46→19:59)
[2016-12-29] MEDS: Losartan Potassium 25 MG TAB PO SCH ×2 (10:54→11:05)
[2016-12-29] MEDS: hydrALAZINE 25 MG TAB PO SCH ×2 (10:54→11:05)
[2016-12-29] MEDS: Carvedilol 25 MG TAB PO SCH ×2 (10:54→11:04)
[2016-12-29] MEDS: Gabapentin 100 MG CAP PO SCH ×2 (10:54→19:59)
[2016-12-29] MEDS: Pilocarpine 1% Ophth Drops 15 ML BOT EA EYE SCH ×3 (11:05→20:00)
[2016-12-29] MEDS: Brimonidine Tartrate 0.2% Ophth Soln 5 ml Bottle EA EYE SCH (11:06)
[2016-12-29] MEDS: Timolol 0.5% Ophth Soln 5 ml Bottle EA EYE SCH (11:07)
[2016-12-29] MEDS: Brinzolamide 1% Ophth Soln 10 ml Bottle EA EYE SCH ×2 (11:08→20:01)
--- NOTE | 2016-12-29 11:14 | PDOC.PN ---
- Subjective Encounter Start Date: 12/29/16 Encounter Start Time: 09:50 Subjective: getting HD now -: not fully oriented, no chest pain or sob - Objective Resuscitation Status: Resuscitation Status FULL:Full Resuscitation MAR Reviewed: Yes Vital Signs & Weight: Vital Signs (12 hours) Temp Pulse Resp BP Pulse Ox 12/29/16 11:07 66 12/29/16 11:05 66 12/29/16 08:36 98.0 F 66 12 143/72 H 100 12/29/16 04:00 97.9 F 92 12 94/54 L 99 12/29/16 00:00 97.3 F L 74 16 125/72 97 Weight Weight 109 lb I&O: 12/28/16 12/29/16 12/30/16 06:59 06:59 06:59 Intake Total 1430 Balance 1430 Result Diagrams: 12/29/16 03:29 12/29/16 03:29 Additional Labs: Accuchecks 12/29/16 12/29/16 12/28/16 10:34 05:39 20:57 POC Glucose 81 122 H 125 H 12/28/16 12/28/16 16:32 10:45 POC Glucose 170 H 161 H Phys Exam - Physical Examination HEENT: PERRLA, moist MMs Neck: no JVD, supple Respiratory: no wheezing, no rales Cardiovascular: RRR, no significant murmur Gastrointestinal: soft, non-tender, positive bowel sounds Musculoskeletal: pulses present left bka in dressing, has right bka Neurological: non-focal, moves all 4 limbs Dx/Plan (1) Hypoglycemia associated with type 2 diabetes mellitus Code(s): E11.649 - TYPE 2 DIABETES MELLITUS WITH HYPOGLYCEMIA WITHOUT COMA Status: Acute Comment: resolving (2) Status post below knee amputation of left lower extremity Code(s): Z89.512 - ACQUIRED ABSENCE OF LEFT LEG BELOW KNEE Status: Acute (3) Anemia of renal disease Code(s): D63.1 - ANEMIA IN CHRONIC KIDNEY DISEASE Status: Chronic (4) DM type 2 (diabetes mellitus, type 2) Status: Chronic Qualifiers: Diabetes mellitus complication status: with kidney complications Diabetes mellitus termite helper insulin use: with residential use Chronic kidney disease stage: on chronic dialysis (5) ESRD (end stage renal disease) on dialysis Code(s): N18.6 - END STAGE RENAL DISEASE; Z99.2 - DEPENDENCE ON RENAL DIALYSIS Status: Chronic Comment: on HD (6) Glaucoma Code(s): H40.9 - UNSPECIFIED GLAUCOMA Status: Chronic Qualifiers: Glaucoma type: unspecified (7) HTN (hypertension) Code(s): I10 - ESSENTIAL (PRIMARY) HYPERTENSION Status: Chronic Qualifiers: Hypertension type: essential hypertension Qualified Code(s): I10 - Essential (primary) hypertension (8) History of right below knee amputation Code(s): Z89.511 - ACQUIRED ABSENCE OF RIGHT LEG BELOW KNEE Status: Chronic (9) PVD (peripheral vascular disease) Code(s): I73.9 - PERIPHERAL VASCULAR DISEASE, UNSPECIFIED Status: Chronic Comment: h/o right BKA and now with left BKA (10) Protein-calorie malnutrition, moderate Code(s): E44.0 - MODERATE PROTEIN-CALORIE MALNUTRITION Status: Chronic - Plan encourage po intake, nepro -: on epogen weekly -: dc plan is to rehab to learn transfers and mobilizing -: watch for hypoglycemia, not on any meds for dm -: ultram and tylenol 3 for pain * . Review of Systems - Medications/Allergies Allergies/Adverse Reactions: Allergies Allergy/AdvReac Type Severity Reaction Status Date / Time Iodine and Iodide Containing Allergy Intermediate VOMITING, Verified 12/15/16 16 :54 Produc RASH shrimp Allergy Verified 12/15/16 16:54 Medications: Current Medications Acetaminophen/Codeine Phosphate (Tylenol #3) 1 tab PO BID [facility] Last Admin: 12/29/16 09:46 Dose: Not Given Hydrocodone Bitart/Acetaminophen ([place] 5/325) 1 tab PO Q4H PRN PRN Reason: Pain Last Admin: 12/28/16 23:55 Dose: 1 tab Alprazolam (Xanax) 0.25 mg PO BID PRN PRN Reason: Anxiety Aspirin (Aspirin Chewable) 81 mg PO DAILY [facility] Last Admin: 12/29/16 11:05 Dose: 81 mg Brimonidine Tartrate (Alphagan 0.2% Ophth Soln) 1 drop EA EYE DAILY [facility] Last Admin: 12/29/16 11:06 Dose: 1 drop Brinzolamide (Azopt 1% Ophth Soln) 1 drop EA EYE BID [facility] Last Admin: 12/29/16 11:08 Dose: 1 drop Calcium Acetate (Phoslo) 667 mg PO TID-WM [facility] Last Admin: 12/29/16 09:46 Dose: Not Given Carvedilol (Coreg) 25 mg PO DAILY [facility] Last Admin: 12/29/16 11:04 Dose: 25 mg Clonidine (Catapres) 0.1 mg PO BIDPRN PRN PRN Reason: SBP GREATER THAN 160 Last Admin: 12/28/16 17:23 Dose: 0.1 mg Dextrose/Water (Dextrose 50%) 25 gm SLOW IVP PRN PRN PRN Reason: Hypoglycemia Last Admin: 12/27/16 08:51 Dose: 25 gm Epoetin Ryan (Procrit) 7,500 units SC Q7D@1999 [facility] Last Admin: 12/27/16 21:50 Dose: Not Given Gabapentin (Neurontin) 100 mg PO BID [facility] Last Admin: 12/29/16 10:54 Dose: Not Given Glucagon (Glucagon) 1 mg IM PRN PRN PRN Reason: Hypoglycemia Hydralazine HCl (Apresoline) 25 mg PO DAILY [facility] Last Admin: 12/29/16 11:05 Dose: 25 mg Hydralazine HCl (Apresoline) 10 mg SLOW IVP Q4H PRN PRN Reason: SBP > 170 or DBP > 100 Dextrose/Water (D5w) 1,000 mls @ 0 mls/hr IV .Q0M PRN; As Directed PRN Reason: Hypoglycemia Insulin Human Regular (Humulin R) 0 units SC .MILD SLIDING SCALE PRN PRN Reason: Mild Correctional Scale Latanoprost (Xalatan 0.005% Ophth Soln) 1 drop EA EYE HS [facility] Last Admin: 12/28/16 20:43 Dose: 1 drop Losartan Potassium (Cozaar) 25 mg PO DAILY [facility] Last Admin: 12/29/16 11:05 Dose: 25 mg Loteprednol Etabonate (Lotemax 0.5% Ophth Suspension) 1 drop EA EYE BID [facility] Ondansetron HCl (Zofran Odt) 4 mg PO Q6H PRN PRN Reason: Nausea/Vomiting Ondansetron HCl (Zofran Odt) 8 mg PO PRN PRN PRN Reason: Nausea Last Admin: 12/28/16 08:55 Dose: 8 mg Ondansetron HCl (Zofran) 4 mg IVP Q6H PRN PRN Reason: Nausea Pantoprazole Sodium (Protonix) 40 mg PO DAILY [facility] Last Admin: 12/29/16 10:54 Dose: Not Given Pilocarpine HCl (Isopto Carpine 1% Oph Soln) 1 drop EA EYE TID [facility] Last Admin: 12/29/16 11:05 Dose: 1 drop Polyethylene Glycol (Miralax) 17 gm PO DAILY [facility] Last Admin: 12/29/16 09:46 Dose: Not Given Sodium Chloride (Flush - Normal Saline) 10 ml IVF PRN PRN PRN Reason: Saline Flush Timolol Maleate (Timoptic 0.5% Oph Soln) 1 drop EA EYE DAILY [facility] Last Admin: 12/29/16 11:07 Dose: 1 drop Tramadol HCl (Ultram) 50 mg PO Q6H PRN PRN Reason: Pain Tramadol HCl (Ultram) 100 mg PO Q6H PRN PRN Reason: Pain Last Admin: 12/29/16 01:14 Dose: 100 mg
--- NOTE | 2016-12-29 14:13 | PRG-2 ---
DATE OF SERVICE: 12/29/2016 ATTENDING PHYSICIAN: Dr. Gilmer Zee SUBJECTIVE: This is a 66-year-old woman status post below knee amputation of left lower extremity. The patient is currently postop day #3. The patient was sleeping this morning. She was able to wa ke up to tell us that she was doing okay. She denied any nausea, vomiting, shortness of breath or c hest pain. OBJECTIVE: VITAL SIGNS: Blood pressure 160/65, pulse 67, respiratory rate 12, oxygen saturation 99% on 1 liter , temperature 98.0 degrees Fahrenheit. GENERAL: The patient was asleep on examination. She woke up to tell us that she was doing fine [facility] morning. She did not appear to be in any distress. HEENT: Reveals normocephalic, atraumatic head. ABDOMEN: Soft, nontender to palpation. CARDIOVASCULAR: Regular rate and rhythm. RESPIRATORY: Lungs are clear to auscultation bilaterally. Equal rise and fall of chest. NEUROLOGICAL: No focal deficits appreciated. LABORATORY DATA: CBC this morning reveals white blood cell count 10.9, hemoglobin 8.7, hematocrit 2 8.6, platelet count 566. BMP reveals sodium 138, potassium 4.3, chloride 100, bicarbonate 28, BUN 3 0, creatinine 4.52, and glucose of 141. ASSESSMENT: 1. Day #3 status post below knee amputation, left lower extremity. 2. Anemia of chronic disease secondary to renal function. 3. Diabetes mellitus type 2. 4. End-stage renal disease on dialysis. 5. Glaucoma. 6. Hypertension. 7. History of right BKA. 8. Peripheral vascular disease. 9. Protein calorie malnutrition, moderate. PLAN: We will continue with pain management. The patient's medical problems being managed by prima ry team. From a surgical standpoint, the patient is doing well. The patient worked with physical t herapy yesterday. She tolerated the evaluation well. We will continue to have the patient work wit h physical therapy during the course of her hospital stay. Dr. Gilmer Zee was present during [facility] discussion and evaluation.
--- NOTE | 2016-12-29 14:42 | PQF ---
CLINICAL DOCUMENTATION IMPROVEMENT CLARIFICATION FORM: ICD-10 Updated PLEASE DO AN ADDENDUM TO THE PROGRESS NOTE WITH ANY DOCUMENTATION UPDATES OR ADDITIONS AND CARRY THROUGH TO DC SUMMARY. THANK YOU. DATE: 12/29 ATTN: DR. ZULMA VEGA Please exercise your independent, professional judgment in responding to the clarification form. Clinical indicators are provided on the bottom of this form for your review PHYSICIAN ADMISSION ORDER DIAGNOSIS 12/26: LLE ULCERATION OP REPORT PREOPERATIVE & POSTOPERATIVE DIAGNOSES 12/26: ESRD, EXPOSED ANTERIOR TIBIALIS TENDON, ACHILLES TENDON FROM WOUNDS LLL WITH & INTRACTABLE PAIN PATIENT WITH HISTORY OF DM TYPE II, ESRD ON DIALYSIS, PERIPHERAL VASCULAR DISEASE PLEASE CHECK ALL THAT APPLY: LLE ULCERATION Type: [ ] Diabetic [ ] Vascular due to PVD [ ] Varicose [ ] Atherosclerosis of lower limb [ ] Other (specify) Gangrene: [ ] Yes [ ] No [ ] Other (specify) [ ] Other diagnosis [ ] Unable to determine For continuity of documentation, please document condition throughout progress notes and discharge summary. Thank You. CLINICAL INDICATORS - SIGNS / SYMPTOMS / LABS RISK FACTORS HX OF DM II & PVD ESRD ON DIALYSIS HX OF R BKA TREATMENT: L BKA (12/26) THANK YOU! Latasha (This form is maintained as a part of the permanent medical record) 2014 [employer]. All Rights Reserved Latasha Wade RN, BSN [email or web address] Office: [phone] [facility]
[2016-12-29] MEDS: Latanoprost 0.005% Ophth Soln 2.5 ml Bottle EA EYE SCH (20:00)
[2016-12-30] MEDS: HYDROcodone/Acetaminophen 5/325 mg Tablet PO PRN (04:31)
[2016-12-30 04:50] LABS: #Eosinphils 0.2 thou/uL (0.0-0.7); #Lymphocytes 1.7 thou/uL (1.20-3.40); #Monocytes 1.1 thou/uL (0.11-0.59); #Neutrophils 7.6 thou/uL (1.40-6.50); %Basophils 0.1 % (0.0-1.0); %Eosinophils 2.3 % (0.0-10.0); %Lymphocytes 16.3 % (21.0-51.0); %Monocytes 9.9 % (0.0-10.0); Hematocrit 29.1 % (36.0-47.0); Mean Platelet Volume 6.9 fL (7.4-10.4); Red Blood Cell (RBC) Count 3.23 mill/uL (4.20-5.40); White Blood Cell (WBC) Count 10.6 thou/uL (4.8-10.8)
[2016-12-30 05:03] LABS: Anion Gap 14 mmol/L (10-20); BUN (Urea Nitrogen) 37 mg/dL (9.8-20.1); Calc. Creatinine Clearance 8 mL/min (70-130); Calcium 9.1 mg/dL (7.8-10.44); Carbon Dioxide 31 mmol/L (23-31); Chloride 98 mmol/L (98-107); Estimated GFR-MDRD 10
[2016-12-30] MEDS ORDERED: Famotidine/PF 20 mg/2ml Vial SLOW IVP SCH (07:15)
[2016-12-30] MEDS ORDERED: methylPREDNISolone Sod Succ/PF 125 MG/2 ML VIAL IVP SCH (07:15)
[2016-12-30] MEDS ORDERED: diphenhydrAMINE 50 MG/ML VIAL IVP SCH (07:15)
[2016-12-30] MEDS: Calcium Acetate 667 MG CAP PO SCH ×3 (08:15→16:59)
[2016-12-30] MEDS: Acetaminophen/Codeine 30-300mg Tablet PO SCH ×2 (08:15→20:41)
[2016-12-30] MEDS: Carvedilol 25 MG TAB PO SCH ×3 (08:16→11:26)
[2016-12-30] MEDS: Gabapentin 100 MG CAP PO SCH ×2 (08:23→20:41)
[2016-12-30] MEDS: hydrALAZINE 25 MG TAB PO SCH (08:23)
[2016-12-30] MEDS: Losartan Potassium 25 MG TAB PO SCH ×3 (08:24→11:26)
[2016-12-30] MEDS: Polyethylene Glycol 3350 17 GM Packet PO SCH (08:40)
[2016-12-30] MEDS ORDERED: Activase 2 MG VIAL CATH ONE (08:45)
--- NOTE | 2016-12-30 09:12 | PRG ---
DATE OF SERVICE: 12/30/2016 SUBJECTIVE: Ms. Frias is a 66-year-old black female with ESRD and followed by renal service for [facility] hemodialysis. We attempted to dialyze her yesterday. This was not successful. She had r evealed a clotted AV fistula. I have scheduled her for AV fistulogram. She is scheduled to be done this morning. However, due to allergies from contrast she is getting premedicated with steroids. This morning, she denies any chest pain, no shortness of breath. PHYSICAL EXAMINATION: VITAL SIGNS: Blood pressure 157/72, heart rate 71, respiratory rate 14, temperature 98.5, pulse ox 98%. GENERAL: Awake, supine, comfortable, not in distress. SKIN: Adequate turgor. HEENT: Slightly pale conjunctivae, anicteric sclerae. NECK: No neck mass. No carotid bruits, no JVD. Decreased visual acuity. LUNGS: Clear breath sounds. No wheezing, no crackles. HEART: Normal sinus rhythm. No murmur, no gallops or rubs. ABDOMEN: Globular, soft, nontender, no masses. EXTREMITIES: Status post bilateral BKA. MEDICATIONS: Of 12/30/2016 was reviewed. LABORATORY DATA: Of 12/30/2016: White count 10.6, hemoglobin 8.7, sodium 138, potassium 4.8, chlor maria esther 98, carbon dioxide 31, BUN 37, creatinine 5.32, glucose 83, calcium 9.1. ASSESSMENT AND PLAN: 1. End-stage renal disease, stable - awaiting arteriovenous fistulogram. We will do dialysis eithe r this afternoon or in a.m. The patient is not volume overloaded. Potassium is within normal. 2. Anemia - I have started this patient on weekly Epogen p.r.n. blood transfusion. 3. Peripheral vascular disease/chronic leg infection - recently status post left below knee amputat ion surgery is following. 4. Check base met and CBC in a.m.
[2016-12-30] MEDS: Pilocarpine 1% Ophth Drops 15 ML BOT EA EYE SCH ×3 (10:42→20:41)
[2016-12-30] MEDS: Latanoprost 0.005% Ophth Soln 2.5 ml Bottle EA EYE SCH (10:45)
[2016-12-30] MEDS: Brinzolamide 1% Ophth Soln 10 ml Bottle EA EYE SCH ×2 (10:46→20:41)
[2016-12-30] MEDS: Timolol 0.5% Ophth Soln 5 ml Bottle EA EYE SCH (10:49)
[2016-12-30] MEDS: Brimonidine Tartrate 0.2% Ophth Soln 5 ml Bottle EA EYE SCH (10:49)
[2016-12-30] MEDS: traMADol HCl 50 MG TAB PO PRN (11:18)
[2016-12-30] MEDS: Loteprednol Etabonate 0.5% Ophth Suspension 5 ml Bottle EA EYE SCH ×2 (11:20→20:42)
--- NOTE | 2016-12-30 12:48 | PDOC.PN ---
- Subjective Encounter Start Date: 12/30/16 Encounter Start Time: 10:00 Subjective: is working with PT -: no sob - Objective Resuscitation Status: Resuscitation Status FULL:Full Resuscitation MAR Reviewed: Yes Vital Signs & Weight: Vital Signs (12 hours) Temp Pulse Resp BP BP Pulse Ox 12/30/16 11:15 97.9 F 78 14 168/73 H 97 12/30/16 10:49 71 149/81 H 12/30/16 08:23 71 12/30/16 08:00 98.6 F 72 14 149/81 H 100 Weight Weight 109 lb I&O: 12/29/16 12/30/16 12/31/16 06:59 06:59 06:59 Intake Total 1430 Balance 1430 Result Diagrams: 12/30/16 04:30 12/30/16 04:30 Additional Labs: Accuchecks 12/30/16 12/30/16 12/29/16 11:14 05:23 21:11 POC Glucose 69 L 84 152 H 12/29/16 16:55 POC Glucose 89 Phys Exam - Physical Examination HEENT: moist MMs, sclera anicteric has exophthalmos Neck: no JVD, supple Respiratory: no wheezing, no rales Cardiovascular: RRR, no significant murmur Gastrointestinal: soft, non-tender, positive bowel sounds Musculoskeletal: pulses present left bka in dressing, also has right bka Neurological: non-focal, moves all 4 limbs Dx/Plan (1) Hypoglycemia associated with type 2 diabetes mellitus Code(s): E11.649 - TYPE 2 DIABETES MELLITUS WITH HYPOGLYCEMIA WITHOUT COMA Status: Acute Comment: resolving (2) Status post below knee amputation of left lower extremity Code(s): Z89.512 - ACQUIRED ABSENCE OF LEFT LEG BELOW KNEE Status: Acute (3) Anemia of renal disease Code(s): D63.1 - ANEMIA IN CHRONIC KIDNEY DISEASE Status: Chronic (4) DM type 2 (diabetes mellitus, type 2) Status: Chronic Qualifiers: Diabetes mellitus complication status: with kidney complications Diabetes mellitus nursing home insulin use: with nursing home use Chronic kidney disease stage: on chronic dialysis (5) ESRD (end stage renal disease) on dialysis Code(s): N18.6 - END STAGE RENAL DISEASE; Z99.2 - DEPENDENCE ON RENAL DIALYSIS Status: Chronic Comment: on HD (6) Glaucoma Code(s): H40.9 - UNSPECIFIED GLAUCOMA Status: Chronic Qualifiers: Glaucoma type: unspecified (7) HTN (hypertension) Code(s): I10 - ESSENTIAL (PRIMARY) HYPERTENSION Status: Chronic Qualifiers: Hypertension type: essential hypertension Qualified Code(s): I10 - Essential (primary) hypertension (8) History of right below knee amputation Code(s): Z89.511 - ACQUIRED ABSENCE OF RIGHT LEG BELOW KNEE Status: Chronic (9) PVD (peripheral vascular disease) Code(s): I73.9 - PERIPHERAL VASCULAR DISEASE, UNSPECIFIED Status: Chronic Comment: h/o right BKA and now with left BKA (10) Protein-calorie malnutrition, moderate Code(s): E44.0 - MODERATE PROTEIN-CALORIE MALNUTRITION Status: Chronic - Plan encourage po intake, fingerstick is dipping to 60's -: nepro tid -: not fully oriented -: is off all antidiabetic meds -: has multiple once daily htn meds, watch for hypotension * . Review of Systems - Medications/Allergies Allergies/Adverse Reactions: Allergies Allergy/AdvReac Type Severity Reaction Status Date / Time Iodine and Iodide Containing Allergy Intermediate VOMITING, Verified 12/15/16 16 :54 Produc RASH shrimp Allergy Verified 12/15/16 16:54 Medications: Current Medications Acetaminophen/Codeine Phosphate (Tylenol #3) 1 tab PO BID [facility] Last Admin: 12/30/16 08:15 Dose: Not Given Hydrocodone Bitart/Acetaminophen ([place]ettinger 5/325) 1 tab PO Q4H PRN PRN Reason: Pain Last Admin: 12/30/16 04:31 Dose: 1 tab Alprazolam (Xanax) 0.25 mg PO BID PRN PRN Reason: Anxiety Aspirin (Aspirin Chewable) 81 mg PO DAILY [facility] Last Admin: 12/30/16 08:15 Dose: Not Given Brimonidine Tartrate (Alphagan 0.2% Ophth Soln) 1 drop EA EYE DAILY [facility] Last Admin: 12/30/16 10:49 Dose: 1 drop Brinzolamide (Azopt 1% Ophth Soln) 1 drop EA EYE BID [facility] Last Admin: 12/30/16 10:46 Dose: 1 drop Calcium Acetate (Phoslo) 667 mg PO TID-WM [facility] Last Admin: 12/30/16 11:18 Dose: 667 mg Carvedilol (Coreg) 25 mg PO DAILY [facility] Last Admin: 12/30/16 11:26 Dose: 25 mg Clonidine (Catapres) 0.1 mg PO BIDPRN PRN PRN Reason: SBP GREATER THAN 160 Last Admin: 12/28/16 17:23 Dose: 0.1 mg Dextrose/Water (Dextrose 50%) 25 gm SLOW IVP PRN PRN PRN Reason: Hypoglycemia Last Admin: 12/27/16 08:51 Dose: 25 gm Epoetin Ryan (Procrit) 7,500 units SC Q7D@2000 [facility] Last Admin: 12/27/16 21:50 Dose: Not Given Gabapentin (Neurontin) 100 mg PO BID [facility] Last Admin: 12/30/16 08:23 Dose: Not Given Glucagon (Glucagon) 1 mg IM PRN PRN PRN Reason: Hypoglycemia Hydralazine HCl (Apresoline) 25 mg PO DAILY [facility] Last Admin: 12/30/16 08:23 Dose: Not Given Hydralazine HCl (Apresoline) 10 mg SLOW IVP Q4H PRN PRN Reason: SBP > 170 or DBP > 100 Dextrose/Water (D5w) 1,000 mls @ 0 mls/hr IV .Q0M PRN; As Directed PRN Reason: Hypoglycemia Insulin Human Regular (Humulin R) 0 units SC .MILD SLIDING SCALE PRN PRN Reason: Mild Correctional Scale Latanoprost (Xalatan 0.005% Ophth Soln) 1 drop EA EYE HS [facility] Last Admin: 12/30/16 10:45 Dose: 1 drop Losartan Potassium (Cozaar) 25 mg PO DAILY [facility] Last Admin: 12/30/16 11:26 Dose: 25 mg Loteprednol Etabonate (Lotemax 0.5% Ophth Suspension) 1 drop EA EYE BID [facility] Last Admin: 12/30/16 11:20 Dose: Not Given Ondansetron HCl (Zofran Odt) 4 mg PO Q6H PRN PRN Reason: Nausea/Vomiting Ondansetron HCl (Zofran Odt) 8 mg PO PRN PRN PRN Reason: Nausea Last Admin: 12/28/16 08:55 Dose: 8 mg Ondansetron HCl (Zofran) 4 mg IVP Q6H PRN PRN Reason: Nausea Pantoprazole Sodium (Protonix) 40 mg PO DAILY [facility] Last Admin: 12/30/16 08:40 Dose: Not Given Pilocarpine HCl (Isopto Carpine 1% Oph Soln) 1 drop EA EYE TID [facility] Last Admin: 12/30/16 10:42 Dose: 1 drop Polyethylene Glycol (Miralax) 17 gm PO DAILY [facility] Last Admin: 12/30/16 08:40 Dose: Not Given Sodium Chloride (Flush - Normal Saline) 10 ml IVF PRN PRN PRN Reason: Saline Flush Timolol Maleate (Timoptic 0.5% [facility] Sol) 1 drop EA EYE DAILY [facility] Last Admin: 12/30/16 10:49 Dose: 1 drop Tramadol HCl (Ultram) 50 mg PO Q6H PRN PRN Reason: Pain Last Admin: 12/30/16 11:18 Dose: 50 mg Tramadol HCl (Ultram) 100 mg PO Q6H PRN PRN Reason: Pain Last Admin: 12/29/16 01:14 Dose: 100 mg
[2016-12-30] MEDS ORDERED: CEFAZOLIN/Water 2 GM/20 ML SYRINGE SLOW IVP SCH (13:15)
--- NOTE | 2016-12-30 13:38 | PRG ---
DATE OF SERVICE: 12/30/2016 Joaquin Frias is doing well today. She is status post amputation left below the knee last week. She has a splint dressing still in place. She has end-stage renal disease on maintenance dialysis. She has been using a left upper arm dialysis graft with chronic subclavian vein outflow obstruction. L year, I placed a right arm fistula and subsequently a transposition fistula. Unfortunately, thi s thrombosed, documented in the last office visit. I discussed with the patient and the family at t hat time considerations for placing a right arm graft considering the left arm graft will eventually fail, but they declined. Her left arm graft has now occluded. Interventional Radiology today stud ied this and documented the subclavian vein outflow obstruction, left. The plan at this time is to place a right arm dialysis graft and a hemodialysis catheter tomorrow. After this, she could be dis charged to rehab or care facility postoperatively or more likely on . The patient's last he moglobin was 8.7. We will type and screen her in the morning. Since 2 units of blood transfusion t his hospitalization her blood pressure has been much more stable and normal 140-160.
[2016-12-30] MEDS: hydrALAZINE 20 MG/ML VIAL SLOW IVP PRN (15:04)
[2016-12-30] MEDS ORDERED: Heparin 1,000 UNITS/ML VIAL ONE (16:17)
[2016-12-30] MEDS: Insulin Regular 300 UNITS/3 ML VIAL SC PRN (16:59)
[2016-12-31 06:56] LABS: Anion Gap 18 mmol/L (10-20); BUN (Urea Nitrogen) 46 mg/dL (9.8-20.1); Calc. Creatinine Clearance 7 mL/min (70-130); Calcium 9.5 mg/dL (7.8-10.44); Carbon Dioxide 29 mmol/L (23-31); Chloride 97 mmol/L (98-107); Estimated GFR-MDRD 8
[2016-12-31 07:37] LABS: #Lymphocytes 1.2 thou/uL (1.20-3.40); #Monocytes 0.7 thou/uL (0.11-0.59); #Neutrophils 12.6 thou/uL (1.40-6.50); %Basophils 0.2 % (0.0-1.0); %Eosinophils 0.1 % (0.0-10.0); %Lymphocytes 7.9 % (21.0-51.0); %Monocytes 4.8 % (0.0-10.0); Hematocrit 36.2 % (36.0-47.0); Hypochromia SLIGHT = 6-15 cells (100X) (0-5/hpf); Mean Platelet Volume 7.2 fL (7.4-10.4); Polychromasia MODERATE = 3-4 cells (100X) (0-2/hpf); Red Blood Cell (RBC) Count 3.97 mill/uL (4.20-5.40); White Blood Cell (WBC) Count 14.5 thou/uL (4.8-10.8)
--- NOTE | 2016-12-31 10:03 | PQF ---
CLINICAL DOCUMENTATION IMPROVEMENT CLARIFICATION FORM: ICD-10 Updated PLEASE DO AN ADDENDUM TO THE PROGRESS NOTE WITH ANY DOCUMENTATION UPDATES OR ADDITIONS AND CARRY THROUGH TO DC SUMMARY. THANK YOU. DATE: 12/29, 12/31 ATTN: DR. ZULMA VEGA RESUBMITTED PRIOR QUERY WAS SIGNED BUT UNANSWERED Please exercise your independent, professional judgment in responding to the clarification form. Clinical indicators are provided on the bottom of this form for your review PHYSICIAN ADMISSION ORDER DIAGNOSIS 12/26: LLE ULCERATION OP REPORT PREOPERATIVE & POSTOPERATIVE DIAGNOSES 12/26: ESRD, EXPOSED ANTERIOR TIBIALIS TENDON, ACHILLES TENDON FROM WOUNDS LLL WITH & INTRACTABLE PAIN PATIENT WITH HISTORY OF DM TYPE II, ESRD ON DIALYSIS, PERIPHERAL VASCULAR DISEASE PLEASE CHECK ALL THAT APPLY: LLE ULCERATION Type: [ ] Diabetic [ ] Vascular due to PVD [ ] Varicose [ ] Atherosclerosis of lower limb [ ] Other (specify) [ ] Other (specify) [ ] Other diagnosis [ ] Unable to determine For continuity of documentation, please document condition throughout progress notes and discharge summary. Thank You. CLINICAL INDICATORS - SIGNS / SYMPTOMS / LABS RISK FACTORS HX OF DM II & PVD ESRD ON DIALYSIS HX OF R BKA TREATMENT: L BKA (12/26) THANK YOU! Latasha (This form is maintained as a part of the permanent medical record) 2014 [employer]. All Rights Reserved Latasha Wade RN, BSN [email or web address] Office: [phone] [facility]
[2016-12-31] MEDS: hydrALAZINE 25 MG TAB PO SCH (10:15)
[2016-12-31] MEDS: Gabapentin 100 MG CAP PO SCH ×2 (10:15→22:08)
[2016-12-31] MEDS: Carvedilol 25 MG TAB PO SCH (10:15)
[2016-12-31] MEDS: Acetaminophen/Codeine 30-300mg Tablet PO SCH ×2 (10:16→22:13)
[2016-12-31] MEDS: Losartan Potassium 25 MG TAB PO SCH (10:16)
[2016-12-31] MEDS: Calcium Acetate 667 MG CAP PO SCH ×3 (10:17→16:30)
[2016-12-31] MEDS: Polyethylene Glycol 3350 17 GM Packet PO SCH (10:22)
--- NOTE | 2016-12-31 11:42 | PRG ---
DATE OF SERVICE: 12/31/2016 SUBJECTIVE: Ms. Frias is a 66-year-old black female with ESRD. Her left AV fistula/graft was note d to be nonfunctional. Attempt to open this up with fistulogram was not successful. Surgical consu lt has been done with Dr. Russell. The plan is to for her to have a new AV fistula placed in a tempo rary cuffed dialysis catheter. We are awaiting consent to be given. Once she has an access, we nitin l continue and we will initiate dialysis. Currently asymptomatic. The patient denies any chest olivia n or shortness of breath. OBJECTIVE: VITAL SIGNS: Blood pressure is 146/82, heart rate 81, respiratory rate 16, temperature 98, pulse ox 97%. GENERAL: Awake, alert, comfortable, not in distress. SKIN: Adequate turgor. HEENT: She has pinkish conjunctivae, anicteric sclerae. NECK: No neck mass, no carotid bruits, no JVD, decreased visual acuity. LUNGS: Clear breath sounds. No wheezing, no crackles. HEART: Normal sinus rhythm. No murmur, no gallops, no rubs. ABDOMEN: Globular, soft, nontender, no masses. EXTREMITIES: Bilateral BKA. NEUROLOGIC: Awake, oriented to 3 spheres. Moving all extremities. MEDICATIONS: Medications of 12/31/2016 was reviewed. LABORATORY DATA: Laboratories of 12/31/2016, white count 14.5, hemoglobin 10.2. Sodium 139, potass ium 5.2, chloride 97, carbon dioxide 29, BUN 46, creatinine 6.3, glucose 188, calcium 9.5. ASSESSMENT AND PLAN: 1. End-stage renal disease - awaiting for placement of dialysis catheter. Once the dialysis cathet er is placed, we will initiate dialysis with this patient. Please note we will continue her current Thursday, Thursday, and Thursday dialysis regimen. 2. Mild hyperkalemia - we will simply observe this. No indication for any Kayexalate. Schedule fo r dialysis once dialysis access available. 3. Anemia, stabilizing. The patient currently on weekly Epogen. Continue current management. 4. Peripheral vascular disease, status post left AKA. Doing well. Surgery is following. We check base met CBC in a.m.
[2016-12-31] MEDS: Brimonidine Tartrate 0.2% Ophth Soln 5 ml Bottle EA EYE SCH (13:22)
[2016-12-31] MEDS: Pilocarpine 1% Ophth Drops 15 ML BOT EA EYE SCH ×3 (13:22→22:08)
[2016-12-31] MEDS: Brinzolamide 1% Ophth Soln 10 ml Bottle EA EYE SCH ×2 (13:22→22:11)
[2016-12-31] MEDS: Loteprednol Etabonate 0.5% Ophth Suspension 5 ml Bottle EA EYE SCH ×2 (13:22→22:11)
[2016-12-31] MEDS: Timolol 0.5% Ophth Soln 5 ml Bottle EA EYE SCH (13:23)
--- NOTE | 2016-12-31 13:23 | PDOC.PN ---
- Subjective Encounter Start Date: 12/31/16 Encounter Start Time: 10:30 Subjective: await sitting in chair -: sister at bedside -: is npo for placement of HD access - Objective Resuscitation Status: Resuscitation Status FULL:Full Resuscitation MAR Reviewed: Yes Vital Signs & Weight: Vital Signs (12 hours) Temp Pulse Resp BP Pulse Ox 12/31/16 12:31 98.3 F 82 16 175/80 H 94 L 12/31/16 10:15 73 12/31/16 09:00 98.6 F 73 16 135/73 94 L 12/31/16 04:18 98.0 F 81 16 146/82 H 97 Weight Weight 109 lb I&O: 12/30/16 12/31/16 01/01/17 06:59 06:59 06:59 Intake Total 720 Balance 720 Result Diagrams: 12/31/16 06:25 12/31/16 06:25 Additional Labs: Accuchecks 12/31/16 12/31/16 12/30/16 10:31 06:24 21:31 POC Glucose 137 H 168 H 225 H 12/30/16 12/27/16 12/27/16 16:02 10:53 09:26 POC Glucose 288 H 159 H 171 H 12/27/16 09:20 POC Glucose 177 H Phys Exam - Physical Examination HEENT: PERRLA, moist MMs Neck: no JVD, supple Respiratory: no wheezing, no rales Cardiovascular: RRR, no significant murmur Gastrointestinal: soft, non-tender, positive bowel sounds left bka in dressing, has old right bka in prosthesis Neurological: non-focal, moves all 4 limbs Psychiatric: A&O x 3 Dx/Plan (1) Hypoglycemia associated with type 2 diabetes mellitus Code(s): E11.649 - TYPE 2 DIABETES MELLITUS WITH HYPOGLYCEMIA WITHOUT COMA Status: Acute Comment: resolving (2) Status post below knee amputation of left lower extremity Code(s): Z89.512 - ACQUIRED ABSENCE OF LEFT LEG BELOW KNEE Status: Acute (3) Anemia of renal disease Code(s): D63.1 - ANEMIA IN CHRONIC KIDNEY DISEASE Status: Chronic (4) DM type 2 (diabetes mellitus, type 2) Status: Chronic Qualifiers: Diabetes mellitus complication status: with kidney complications Diabetes mellitus skilled nursing insulin use: with skilled nursing use Chronic kidney disease stage: on chronic dialysis (5) ESRD (end stage renal disease) on dialysis Code(s): N18.6 - END STAGE RENAL DISEASE; Z99.2 - DEPENDENCE ON RENAL DIALYSIS Status: Chronic Comment: on HD (6) Glaucoma Code(s): H40.9 - UNSPECIFIED GLAUCOMA Status: Chronic Qualifiers: Glaucoma type: unspecified (7) HTN (hypertension) Code(s): I10 - ESSENTIAL (PRIMARY) HYPERTENSION Status: Chronic Qualifiers: Hypertension type: essential hypertension Qualified Code(s): I10 - Essential (primary) hypertension (8) History of right below knee amputation Code(s): Z89.511 - ACQUIRED ABSENCE OF RIGHT LEG BELOW KNEE Status: Chronic (9) PVD (peripheral vascular disease) Code(s): I73.9 - PERIPHERAL VASCULAR DISEASE, UNSPECIFIED Status: Chronic Comment: h/o right BKA and now with left BKA (10) Protein-calorie malnutrition, moderate Code(s): E44.0 - MODERATE PROTEIN-CALORIE MALNUTRITION Status: Chronic - Plan is more alert and awake this morning -: to get HD access in right UE today -: fingerstick around 69-288 -: encourage po intake after procedure today -: dc plan is to rehab * . Review of Systems - Medications/Allergies Allergies/Adverse Reactions: Allergies Allergy/AdvReac Type Severity Reaction Status Date / Time Iodine and Iodide Containing Allergy Intermediate VOMITING, Verified 12/15/16 16 :54 Produc RASH shrimp Allergy Verified 12/15/16 16:54 Medications: Current Medications Acetaminophen/Codeine Phosphate (Tylenol #3) 1 tab PO BID [facility] Last Admin: 12/31/16 10:16 Dose: 1 tab Alprazolam (Xanax) 0.25 mg PO BID PRN PRN Reason: Anxiety Aspirin (Aspirin Chewable) 81 mg PO DAILY [facility] Last Admin: 12/31/16 10:19 Dose: Not Given Brimonidine Tartrate (Alphagan 0.2% Ophth Soln) 1 drop EA EYE DAILY [facility] Last Admin: 12/30/16 10:49 Dose: 1 drop Brinzolamide (Azopt 1% Ophth Soln) 1 drop EA EYE BID [facility] Last Admin: 12/30/16 20:41 Dose: 1 drop Calcium Acetate (Phoslo) 667 mg PO TID-WM [facility] Last Admin: 12/31/16 10:17 Dose: 667 mg Carvedilol (Coreg) 25 mg PO DAILY [facility] Last Admin: 12/31/16 10:15 Dose: 25 mg Clonidine (Catapres) 0.1 mg PO BIDPRN PRN PRN Reason: SBP GREATER THAN 160 Last Admin: 12/28/16 17:23 Dose: 0.1 mg Dextrose/Water (Dextrose 50%) 25 gm SLOW IVP PRN PRN PRN Reason: Hypoglycemia Last Admin: 12/27/16 08:51 Dose: 25 gm Epoetin Ryan (Procrit) 7,500 units SC Q7D@1999 [facility] Last Admin: 12/27/16 21:50 Dose: Not Given Gabapentin (Neurontin) 100 mg PO BID [facility] Last Admin: 12/31/16 10:15 Dose: 100 mg Glucagon (Glucagon) 1 mg IM PRN PRN PRN Reason: Hypoglycemia Hydralazine HCl (Apresoline) 25 mg PO DAILY [facility] Last Admin: 12/31/16 10:15 Dose: 25 mg Hydralazine HCl (Apresoline) 10 mg SLOW IVP Q4H PRN PRN Reason: SBP > 170 or DBP > 100 Last Admin: 12/30/16 15:04 Dose: 10 mg Dextrose/Water (D5w) 1,000 mls @ 0 mls/hr IV .Q0M PRN; As Directed PRN Reason: Hypoglycemia Insulin Human Regular (Humulin R) 0 units SC .MILD SLIDING SCALE PRN PRN Reason: Mild Correctional Scale Last Admin: 12/30/16 16:59 Dose: 4 unit Latanoprost (Xalatan 0.005% Ophth Soln) 1 drop EA EYE HS [facility] Last Admin: 12/30/16 10:45 Dose: 1 drop Losartan Potassium (Cozaar) 25 mg PO DAILY [facility] Last Admin: 12/31/16 10:16 Dose: 25 mg Loteprednol Etabonate (Lotemax 0.5% Ophth Suspension) 1 drop EA EYE BID [facility] Last Admin: 12/30/16 20:42 Dose: Not Given Ondansetron HCl (Zofran Odt) 4 mg PO Q6H PRN PRN Reason: Nausea/Vomiting Ondansetron HCl (Zofran Odt) 8 mg PO PRN PRN PRN Reason: Nausea Last Admin: 12/28/16 08:55 Dose: 8 mg Ondansetron HCl (Zofran) 4 mg IVP Q6H PRN PRN Reason: Nausea Pantoprazole Sodium (Protonix) 40 mg PO DAILY [facility] Last Admin: 12/31/16 10:15 Dose: 40 mg Pilocarpine HCl (Isopto Carpine 1% Ophth Soln) 1 drop EA EYE TID [facility] Last Admin: 12/30/16 20:41 Dose: 1 drop Polyethylene Glycol (Miralax) 17 gm PO DAILY [facility] Last Admin: 12/31/16 10:22 Dose: 17 gm Sodium Chloride (Flush - Normal Saline) 10 ml IVF PRN PRN PRN Reason: Saline Flush Timolol Maleate (Timoptic 0.5% Oph Soln) 1 drop EA EYE DAILY [facility] Last Admin: 12/30/16 10:49 Dose: 1 drop Tramadol HCl (Ultram) 50 mg PO Q6H PRN PRN Reason: Pain Last Admin: 12/30/16 11:18 Dose: 50 mg Tramadol HCl (Ultram) 100 mg PO Q6H PRN PRN Reason: Pain Last Admin: 12/29/16 01:14 Dose: 100 mg
[2016-12-31] MEDS: hydrALAZINE 20 MG/ML VIAL SLOW IVP PRN (13:24)
[2016-12-31] MEDS ORDERED: CEFAZOLIN/Water 2 GM/20 ML SYRINGE ONE (14:49)
[2016-12-31] MEDS ORDERED: Bupivacaine/Epinephrine 0.25% 30 ML VIAL ONE (15:09)
[2016-12-31] MEDS ORDERED: Heparin 5,000 UNITS/ML VIAL ONE (15:09)
[2016-12-31] MEDS ORDERED: Protamine Sulfate 50 MG/5 ML VIAL ONE (15:09)
[2016-12-31] MEDS ORDERED: Fentanyl 100 MCG/2 ML VIAL ONE (16:32)
[2016-12-31] MEDS ORDERED: Sodium Chloride 0.9% 0 ML ONE (17:02)
[2016-12-31] MEDS ORDERED: Heparin 10,000 UNITS/1 ML VIAL ONE (17:03)
[2016-12-31] MEDS ORDERED: Ondansetron HCl/PF 4 MG/2 ML Vial ONE (17:06)
[2016-12-31] MEDS ORDERED: Propofol 200 MG/20 ML VIAL ONE (17:06)
[2016-12-31] MEDS ORDERED: Glycopyrrolate 0.2 MG/ML 5 ML SYRINGE ONE (17:06)
[2016-12-31] MEDS ORDERED: ePHEDrine/0.9% NaCl/PF SYRINGE 50 mg/10 ml ONE (17:06)
[2016-12-31] MEDS ORDERED: PHENYLEPHRINE-NS 100 MCG/ML 10 ML SYRINGE ONE (17:06)
[2016-12-31] MEDS ORDERED: Bacitracin Zinc Ointment 30 gm TUBE ONE (17:14)
[2016-12-31] MEDS ORDERED: Morphine Sulfate 2 MG/ML SYRINGE SLOW IVP PRN (17:55)
[2016-12-31] MEDS ORDERED: Promethazine HCl 25 MG/ML VIAL SLOW IVP PRN (17:55)
[2016-12-31] MEDS ORDERED: Acetaminophen 500 MG TAB PO PRN (19:15)
--- NOTE | 2016-12-31 19:21 | RAD ---
FRONTAL VIEW CHEST 12/31/16 COMPARISON: 10/31/16. INDICATION: Postoperative evaluation. Line placement. FINDINGS: There is a vascular catheter overlying the lower mediastinum near the midline and traversing the upp er midline abdomen not further visualized. There is elevation of the right hemidiaphragm. The cardia c silhouette is enlarged and there is prominence of pulmonary vasculature. Rounded density of the ri ght upper lung zone is again seen. No additional significant interval change. IMPRESSION: Interval placement of catheter traversing the midline upper abdomen to the lower mediastinum not fur ther localized. Prominent cardiac silhouette and pulmonary vasculature compatible with CHF. Redemonstration of rounded density at the right upper lung zone. POS: JOELLE
[2016-12-31] MEDS: Latanoprost 0.005% Ophth Soln 2.5 ml Bottle EA EYE SCH (22:10)
--- NOTE | 2017-01-01 01:09 | OP ---
PREOPERATIVE DIAGNOSIS: End-stage renal disease, bilateral below knee amputations, obstructed left subclavian vein, thrombosis left upper arm dialysis graft this admission, in need of dialysis access , poor IV access, infiltration right hand IV, obstructed left and right internal jugular veins, righ t axillary vein, inadequate for right upper extremity dialysis access. POSTOPERATIVE DIAGNOSIS: End-stage renal disease, bilateral below knee amputations, obstructed left subclavian vein, thrombosis left upper arm dialysis graft this admission, in need of dialysis acces s, poor IV access infiltration, right hand IV, obstructed left and right internal jugular veins, rig ht axillary vein, inadequate for right upper extremity dialysis access. PROCEDURE: Ultrasound evaluation of right and left internal jugular veins, hemodialysis catheter pl aced in right IJ but would not return blood and it was removed. Left femoral vein triple lumen cath eter. Exploration of right axillary vein finding it inadequate for dialysis access. Thus, the righ t arm is inadequate for access in both upper extremities are exhausted for dialysis access, bilatera lly occluded internal jugular veins. Placement of right femoral vein, cuffed tunnel hemodialysis ca theter, fluoroscopy used, ultrasound used. SURGEON: Dr. Keo Russell ANESTHESIA: General. Local 0.5% Marcaine mixed with 1% Xylocaine with epinephrine. PROCEDURE IN DETAIL: Patient taken to the operating room where under general anesthesia, neck, ches t and right upper extremity was prepared with chloraprep, draped in routine fashion. Ultrasound was used to identify the right internal jugular vein and trocar catheters introduced under ultrasound g uidance obtaining good return of venous blood. J wire threaded with some resistance. The fluorosco py revealed the wire to be in the right yenni caudal area consistent with vena caval location. Skin incised and enlarged sharply and smaller and medium sized dilators placed over the J-wire into the i nternal jugular vein and removed. The stab incision made over the right chest. Using the tunneling device precurved dialysis catheter tunneled between the two incisions, placing the fabric cuff bene ath the skin and catheter placed through the pull-away sheath and pull-away sheath removed. The cat heter would not return any blood and thus it was removed, it was felt to be not in the vein. Platys ma approximated with 4-0 Monocryl, skin with subdermal 4-0 Monocryl and DermaGlue applied. Local an esthetic infiltrated. Ultrasound to evaluate the left side of the neck and the left internal jugula r vein was thrombosed. Left subclavian vein is thrombosed, thus was not accessed. In the future, h er right subclavian vein could be used for cuffed tunnel dialysis catheter possibly. Prior to the procedure prior to induction of anesthesia, the left femoral vein triple lumen catheter had been placed after ChloraPrep, trocar catheter cannulating the femoral vein using 1% Xylocaine l ocal anesthesia and Seldinger technique used to place a triple lumen catheter and 3-0 nylon used to secure a Biopatch sterile dressing applied. Each port aspirated blood and flushed with saline solut ion and connective IV fluid for induction of anesthesia. After it was appreciated that the right and left internal jugular veins were occluded, the right upp er extremity was then prepared and incision was made above the antecubital fossa in the distal upper arm and carried down through the skin and subcutaneous tissue. Brachial artery was of good caliber and surrounded with Silastic vessel loop. Incision made in the right axilla and carried down throu gh the skin and subcutaneous tissue. Axillary artery was identified. Nerves were kept free of harm . Extensive evaluation revealed absence of adequate vein for a graft outflow. Thus, both upper ext remities incisions were closed by approximating subcutaneous tissues with 3-0 Monocryl, skin with chapa bdermal 4-0 Monocryl and DermaGlue applied. Local anesthetic infiltrated into skin and subcutaneous tissue about the wounds. Attention was then turned to the right groin. Lower abdomen, right groin and thigh were prepared wi chloraprep, draped in routine fashion. Local anesthetic infiltrated into skin and subcutaneous t issue. Trocar catheter cannulated the femoral vein. J-wire threaded. Trocar catheter removed. Sk in incised and enlarged sharply. Stab incision made over the right anterior lateral thigh. Using t he tunneling device, the precurved angiodynamics, femoral vein dialysis catheter tunneled between th e two incisions, placing the fabric cuff beneath the skin exit site and catheter secured with 2 inte rrupted sutures of 3-0 nylon. Smaller and medium sized dilators placed over the J-wire into the fem oral vein and removed. Dilator and pull-away sheath placed over the J-wire into the femoral vein an d dilator and J-wire removed. Catheter placed through the pull-away sheath and pull-away sheath rem john. Each port aspirated blood and flushed with saline solution and heparinized saline solution 10 00 units heparin per mL indicated volume of the port. Fluoroscopic imaging revealed good line place ment without kinks. Subcutaneous tissues approximated with 3-0 Monocryl, skin with subdermal 4-0 Mo nocryl. DermaGlue and sterile dressings applied. Patient tolerated the procedure well. In the future, the patient will need to be returned as an outpatient for placement of left thigh hawk lysis graft.
[2017-01-01 06:03] LABS: Anion Gap 14 mmol/L (10-20); BUN (Urea Nitrogen) 53 mg/dL (9.8-20.1); Calc. Creatinine Clearance 7 mL/min (70-130); Calcium 9.2 mg/dL (7.8-10.44); Carbon Dioxide 31 mmol/L (23-31); Chloride 96 mmol/L (98-107); Estimated GFR-MDRD 8
[2017-01-01 06:07] LABS: Band 1 % (5-11); Hematocrit 29.5 % (36.0-47.0); Hypochromia SLIGHT = 6-15 cells (100X) (0-5/hpf); Neutrophil 74 % (42-75); Nucleated RBC 1 % (0); Polychromasia SLIGHT = 2-3 cells (100X) (0-2/hpf); White Blood Cell (WBC) Count 11.9 thou/uL (4.8-10.8)
--- NOTE | 2017-01-01 09:29 | PRG ---
DATE OF SERVICE: 01/01/2017 RENAL MEDICINE SUBJECTIVE: Ms. Frias is 66-year-old black female with ESRD and currently undergoing hemodialysis. I am at the bedside supervising her dialysis. No new complaints. A temporary femoral dialysis ca theter has been placed. An attempt to place an AV fistula in the right upper extremity was done. H owever, it is nonfunctional. Surgery feels that she may need to do femoral AV graft/fistula in the near future. Currently, patient has no new complaints. OBJECTIVE: VITAL SIGNS: Blood pressure 119/67, heart rate 84, respiratory rate 18, temperature 97.7, and pulse ox 100%. GENERAL: Noted to be awake, alert, comfortable, and not in distress. SKIN: Adequate turgor. HEENT: Has slightly pale conjunctivae, anicteric sclerae. NECK: No neck mass, no carotid bruits, no JVD. CHEST: No deformities. LUNGS: Clear breath sounds. HEART: Normal sinus rhythm. No murmur, no gallops, no rubs. ABDOMEN: Globular, soft, nontender, no masses. EXTREMITIES: Status post bilateral BKA. MEDICATIONS: Medications of 01/01/2017 was reviewed. LABORATORY DATA: Laboratories of 01/01/2017; white count 11.9, hemoglobin 8.7, sodium 136, potassiu m 5, chloride 96, carbon dioxide 31, BUN 53, creatinine 6.62, glucose 109, and calcium 9.2. ASSESSMENT AND PLAN: 1. End-stage renal disease, stable. Continuing current hemodialysis regimen. The patient missed d ialysis yesterday and for that reason she is undergoing dialysis today. We will resume back on her Thursday, Thursday, and Thursday dialysis. Fluid removal as tolerated, no heparin use due to the recen t surgery. 2. Nonfunctioning arteriovenous fistula - surgery is following for planned femoral arteriovenous fi stula/graft placement in the near future. Overall, continue supportive care. 3. Anemia. Continue weekly Epogen.
[2017-01-01] MEDS: Acetaminophen/Codeine 30-300mg Tablet PO SCH ×2 (10:18→21:29)
--- NOTE | 2017-01-01 10:55 | PDOC.PN ---
- Subjective Encounter Start Date: 01/01/17 Encounter Start Time: 08:00 -: old records requested/rev Patient seen and examined. No new complaints. No overnight events - Objective Resuscitation Status: Resuscitation Status FULL:Full Resuscitation MAR Reviewed: Yes Vital Signs & Weight: Vital Signs (12 hours) Temp Pulse Resp BP Pulse Ox 01/01/17 03:00 97.7 F 84 18 119/67 100 12/31/16 23:50 97.3 F L 68 16 142/80 H 98 Weight Weight 109 lb I&O: 12/31/16 01/01/17 01/02/17 06:59 06:59 06:59 Intake Total 720 700 Balance 720 700 Result Diagrams: 01/01/17 05:15 01/01/17 05:15 Additional Labs: Accuchecks 01/01/17 12/27/16 12/27/16 06:03 10:53 09:26 POC Glucose 104 159 H 171 H 12/27/16 09:20 POC Glucose 177 H Phys Exam - Physical Examination Constitutional: NAD HEENT: PERRLA, moist MMs, sclera anicteric Neck: no JVD, supple Respiratory: no wheezing, no rales, no rhonchi Cardiovascular: RRR, no significant murmur, no rub Gastrointestinal: soft, non-tender, no distention, positive bowel sounds bilateral BKA Lymphatic: no nodes Psychiatric: normal affect Skin: no rash, normal turgor Dx/Plan (1) Status post below knee amputation of left lower extremity Code(s): Z89.512 - ACQUIRED ABSENCE OF LEFT LEG BELOW KNEE Status: Acute (2) Anemia of renal disease Code(s): D63.1 - ANEMIA IN CHRONIC KIDNEY DISEASE Status: Chronic (3) DM type 2 (diabetes mellitus, type 2) Status: Chronic Qualifiers: Diabetes mellitus complication status: with kidney complications Diabetes mellitus rat exterminator insulin use: with rat exterminator use Chronic kidney disease stage: on chronic dialysis (4) ESRD (end stage renal disease) on dialysis Code(s): N18.6 - END STAGE RENAL DISEASE; Z99.2 - DEPENDENCE ON RENAL DIALYSIS Status: Chronic Comment: on HD (5) Glaucoma Code(s): H40.9 - UNSPECIFIED GLAUCOMA Status: Chronic Qualifiers: Glaucoma type: unspecified (6) HTN (hypertension) Code(s): I10 - ESSENTIAL (PRIMARY) HYPERTENSION Status: Chronic Qualifiers: Hypertension type: essential hypertension Qualified Code(s): I10 - Essential (primary) hypertension (7) History of right below knee amputation Code(s): Z89.511 - ACQUIRED ABSENCE OF RIGHT LEG BELOW KNEE Status: Chronic (8) PVD (peripheral vascular disease) Code(s): I73.9 - PERIPHERAL VASCULAR DISEASE, UNSPECIFIED Status: Chronic Comment: h/o right BKA and now with left BKA (9) Protein-calorie malnutrition, moderate Code(s): E44.0 - MODERATE PROTEIN-CALORIE MALNUTRITION Status: Chronic (10) Hypoglycemia associated with type 2 diabetes mellitus Code(s): E11.649 - TYPE 2 DIABETES MELLITUS WITH HYPOGLYCEMIA WITHOUT COMA Status: Acute Comment: resolving - Plan cont current plan of care * today pt is getting HD as she missed yesterday * pt got tunneled HD catheter * pt will need av fistula repair in nearfuture * medication reviewed as below * symptomatic treatment. Review of Systems - Review of Systems Constitutional: negative: Fever, Chills, Sweats, Weakness, Malaise, Other ENT: negative: Ear Pain, Ear Discharge, Nose Pain, Nose Discharge, Nose Congestion, Mouth Pain, Mouth Swelling, Throat Pain, Throat Swelling, Other Respiratory: negative: Cough, Dry, Shortness of Breath, Hemoptysis, SOB with Excertion, Pleuritic Pain, Sputum, Wheezing Cardiovascular: negative: Chest Pain, Palpitations, Orthopnea, Paroxysmal Noc. Dyspnea, Edema, Light Headedness, Other Gastrointestinal: negative: Nausea, Vomiting, Abdominal Pain, Diarrhea, Constipation, Melena, Hematochezia, Other Genitourinary: negative: Dysuria, Frequency, Incontinence, Hematuria, Retention , Other - Medications/Allergies Allergies/Adverse Reactions: Allergies Allergy/AdvReac Type Severity Reaction Status Date / Time Iodine and Iodide Containing Allergy Intermediate VOMITING, Verified 12/15/16 16 :54 Produc RASH shrimp Allergy Verified 12/15/16 16:54 Medications: Current Medications Acetaminophen (Tylenol) 1,000 mg PO Q6H PRN PRN Reason: Moderate to Severe Pain (6-10) Acetaminophen/Codeine Phosphate (Tylenol #3) 1 tab PO BID ELLIS Last Admin: 01/01/17 10:18 Dose: 1 tab Alprazolam (Xanax) 0.25 mg PO BID PRN PRN Reason: Anxiety Aspirin (Aspirin Chewable) 81 mg PO DAILY [facility] Last Admin: 12/31/16 10:19 Dose: Not Given Brimonidine Tartrate (Alphagan 0.2% Ophth Soln) 1 drop EA EYE DAILY [facility] Last Admin: 12/31/16 13:22 Dose: Not Given Brinzolamide (Azopt 1% Ophth Soln) 1 drop EA EYE BID [facility] Last Admin: 12/31/16 22:11 Dose: 1 drop Calcium Acetate (Phoslo) 667 mg PO TID[facility] Last Admin: 12/31/16 16:30 Dose: Not Given Carvedilol (Coreg) 25 mg PO DAILY [facility] Last Admin: 12/31/16 10:15 Dose: 25 mg Clonidine (Catapres) 0.1 mg PO BIDPRN PRN PRN Reason: SBP GREATER THAN 160 Last Admin: 12/28/16 17:23 Dose: 0.1 mg Dextrose/Water (Dextrose 50%) 25 gm SLOW IVP PRN PRN PRN Reason: Hypoglycemia Last Admin: 12/27/16 08:51 Dose: 25 gm Epoetin Ryan (Procrit) 7,500 units SC Q7D@1999 [facility] Last Admin: 12/27/16 21:50 Dose: Not Given Gabapentin (Neurontin) 100 mg PO BID [facility] Last Admin: 12/31/16 22:08 Dose: 100 mg Glucagon (Glucagon) 1 mg IM PRN PRN PRN Reason: Hypoglycemia Hydralazine HCl (Apresoline) 25 mg PO DAILY [facility] Last Admin: 12/31/16 10:15 Dose: 25 mg Hydralazine HCl (Apresoline) 10 mg SLOW IVP Q4H PRN PRN Reason: SBP > 170 or DBP > 100 Last Admin: 12/31/16 13:24 Dose: 10 mg Dextrose/Water (D5w) 1,000 mls @ 0 mls/hr IV .Q0M PRN; As Directed PRN Reason: Hypoglycemia Insulin Human Regular (Humulin R) 0 units SC .MILD SLIDING SCALE PRN PRN Reason: Mild Correctional Scale Last Admin: 12/30/16 16:59 Dose: 4 unit Latanoprost (Xalatan 0.005% Ophth Soln) 1 drop EA EYE HS [facility] Last Admin: 12/31/16 22:10 Dose: 1 drop Losartan Potassium (Cozaar) 25 mg PO DAILY [facility] Last Admin: 12/31/16 10:16 Dose: 25 mg Loteprednol Etabonate (Lotemax 0.5% Ophth Suspension) 1 drop EA EYE BID [facility] Last Admin: 12/31/16 22:11 Dose: Not Given Ondansetron HCl (Zofran Odt) 4 mg PO Q6H PRN PRN Reason: Nausea/Vomiting Ondansetron HCl (Zofran Odt) 8 mg PO PRN PRN PRN Reason: Nausea Last Admin: 12/28/16 08:55 Dose: 8 mg Ondansetron HCl (Zofran) 4 mg IVP Q6H PRN PRN Reason: Nausea Pantoprazole Sodium (Protonix) 40 mg PO DAILY [facility] Last Admin: 12/31/16 10:15 Dose: 40 mg Pilocarpine HCl (Isopto Carpine 1% Ophth Soln) 1 drop EA EYE TID [facility] Last Admin: 12/31/16 22:08 Dose: 1 drop Polyethylene Glycol (Miralax) 17 gm PO DAILY [facility] Last Admin: 12/31/16 10:22 Dose: 17 gm Sodium Chloride (Flush - Normal Saline) 10 ml IVF PRN PRN PRN Reason: Saline Flush Timolol Maleate (Timoptic 0.5% Ophth Soln) 1 drop EA EYE DAILY [facility] Last Admin: 12/31/16 13:23 Dose: Not Given Tramadol HCl (Ultram) 50 mg PO Q6H PRN PRN Reason: Pain Last Admin: 12/30/16 11:18 Dose: 50 mg Tramadol HCl (Ultram) 100 mg PO Q6H PRN PRN Reason: Pain Last Admin: 12/29/16 01:14 Dose: 100 mg
[2017-01-01] MEDS ORDERED: Heparin 10,000 UNITS/ 10 ML VIAL ONE (11:00)
--- NOTE | 2017-01-01 12:46 | PRG ---
DATE OF SERVICE: 01/01/2017 SUBJECTIVE: Porter Frias is a 66-year-old black female status post placement of right femoral vein he modialysis catheter. The right arm was explored axillary vein, inadequate to support any kind of di alysis access, left arm was exhausted for access due to subclavian vein obstruction and thrombosed g raft. Right and left internal jugular veins are occluded. The patient can be transferred to rehabi litation or swing bed. She can be discharged today. She should follow up in my office in 2-3 weeks for staple removal in about 2 weeks. She will need placement of a left thigh dialysis graft. We w ill plan this as an outpatient on a nondialysis day, Thursday or .
[2017-01-01] MEDS: Pilocarpine 1% Ophth Drops 15 ML BOT EA EYE SCH ×3 (13:30→21:26)
[2017-01-01] MEDS: Calcium Acetate 667 MG CAP PO SCH ×3 (13:31→17:49)
[2017-01-01] MEDS: Losartan Potassium 25 MG TAB PO SCH (13:32)
[2017-01-01] MEDS: Carvedilol 25 MG TAB PO SCH (13:33)
--- NOTE | 2017-01-01 13:36 | DIS ---
DATE OF ADMISSION: 12/26/2016 DATE OF DISCHARGE: 01/01/2017 DISPOSITION: Discharged to rehab or [facility]. DISCHARGE DIAGNOSES: 1. End-stage renal disease. 2. Thrombosed left upper arm dialysis graft. 3. Obstructed left subclavian vein, obstructed left and right internal jugular veins, right axillar y vein inadequate to support a dialysis access in right upper extremity. Thus, both upper extremiti es are not available for dialysis access. Blood pressures can be obtained from both upper extremiti es. 4. Poor IV access requiring left femoral vein triple lumen catheter. Nonhealing wounds left leg ov er the tibialis anterior tendon and over the Achilles tendon with intractable pain with TAD decubitu s ulcer component and diabetes factorial component, multifactorial in nature. 5. Legal blindness. 6. End-stage renal disease, on maintenance dialysis Thursday, Thursday, and Thursday. 7. Anemia requiring transfusion. 8. Diabetes mellitus. PROCEDURES THIS HOSPITALIZATION: 1. Amputation of leg below the knee, left. Consultations; Hospitalist and Nephrology, Dr. Ortiz saw her for maintenance dialysis. 2. Thrombosis left upper arm dialysis graft with fistulogram confirming previously known left subc lavian vein obstruction. 3. Placement of left femoral vein triple lumen catheter, attempt at placement of right and left int ernal jugular vein hemodialysis catheters noting left internal jugular vein to be thrombosed, but th e right internal jugular vein to be patent. I could thread a J wire and hemodialysis catheter was p laced with fluoroscopic images in the operating room and noted the catheter be in visibly good posit ion, right pericardial, the superior vena cava, but it was obviously extraluminal thus removed. The right internal jugular vein is occluded retroclavicular from chronic catheter uses previously. Exp loration of right axillary vein finding it inadequate to support a right upper extremity dialysis ac cess. Placement of right femoral vein hemodialysis catheter. Note patient in the future will need to have a left thigh dialysis graft. We will schedule that as an outpatient in the next few weeks. 4. Legally blind. 5. Hemodialysis this hospitalization. 6. Transfusion. HISTORY: Joaquin Frias is a 66-year-old black female with left arm graft that has been previously not ed to have an obstructed outflow with patency maintained by collateral venous runoff. Subclavian ve ins obstructed left. She has had a basilic vein fistula attempt on the right, has a functional left upper arm graft. She has open wounds of her left leg below the knee over the tibialis anterior ten don and Achilles tendon. I previously recommended amputation, but patient declined at that time. S he is now admitted because of chronic pain. Discussion with the patient and family determined that a below the knee amputation was best suited for her as she would use this for transfers, thus this w as undertaken. Postoperatively, she was convalescing, but experienced thrombosis of the left arm gr aft. Fistulogram was ordered and subclavian vein left obstruction noted. She was taken to the oper ating room on 12/31/2016 and noting the above findings, right and left internal jugular veins unsuit able, obstructed from previous dialysis catheters. Right upper arm axillary vein unsuitable for hawk lysis access. We had to place a left femoral vein for an IV access for her surgery and placed a rig ht femoral vein hemodialysis catheter. The patient did well, dialyzed the next day and is transferr ed to rehab if accepted for transfers and rehab and if not accepted she will go back to the [facility]. We will schedule outpatient (same day admission) left thigh dialysis graft.
[2017-01-01] MEDS: Gabapentin 100 MG CAP PO SCH ×2 (13:38→21:25)
[2017-01-01] MEDS: hydrALAZINE 25 MG TAB PO SCH (13:39)
[2017-01-01] MEDS: Brinzolamide 1% Ophth Soln 10 ml Bottle EA EYE SCH ×2 (13:39→21:27)
[2017-01-01] MEDS: Brimonidine Tartrate 0.2% Ophth Soln 5 ml Bottle EA EYE SCH (13:41)
[2017-01-01] MEDS: Loteprednol Etabonate 0.5% Ophth Suspension 5 ml Bottle EA EYE SCH ×2 (13:42→21:28)
[2017-01-01] MEDS: Timolol 0.5% Ophth Soln 5 ml Bottle EA EYE SCH (13:43)
[2017-01-01] MEDS: Polyethylene Glycol 3350 17 GM Packet PO SCH (13:43)
--- NOTE | 2017-01-01 13:58 | PRG ---
ADDENDUM DATE OF SERVICE: 01/01/2017 Ms. Lana Frias had wounds over her left anterior leg and Achilles area. She had exposed tendon. These open wounds were multifactorial. They were due to her pad, diabetic condition and decubitus i n nature had a play. She had intractable pain from her pad and the open wounds and amputation was t he only option. We discussed in length with the patient and family regarding BKA versus AKA and the y felt that she had enough mobility that she would use her BKA till transfer, thus we proceed with b [id number] amputation.
[2017-01-01 14:49] VITALS: BMI 21.2
[2017-01-01] MEDS: Latanoprost 0.005% Ophth Soln 2.5 ml Bottle EA EYE SCH (21:25)
--- NOTE | 2017-01-01 23:04 | DIS ---
DATE OF ADMISSION: 12/26/2016 DATE OF DISCHARGE: 01/01/2017 DISCHARGE DISPOSITION: Rehabilitation. PRIMARY DISCHARGE DIAGNOSES: Status post left below-knee amputation, status post hemodialysis acces s, arteriovenous fistula malfunction. SECONDARY DISCHARGE DIAGNOSES: Peripheral vascular disease, diabetes type 2, end-stage renal diseas e on hemodialysis, glaucoma, anemia of renal disease, secondary hyperparathyroidism of renal origin. PRIMARY PROCEDURE/OPERATIONS: Left below-knee amputation, maintenance hemodialysis, tunneled hemodi alysis catheter placement. RADIOLOGICAL INVESTIGATION: AV shunt angiogram, chest x-ray. SIGNIFICANT LABS: Hemoglobin 8.7. Creatinine 6.62. DISCHARGE MEDICATIONS: Xanax 0.25 mg p.o. b.i.d., Tylenol No. 3 one tablet b.i.d., aspirin 81 mg p. o. daily, brimonidine ophthalmic drops each eye daily, ophthalmic drops b.i.d., PhosLo 667 mg t.i.d., Coreg 25 mg daily, Lantus 10 units subcutaneous b.i.d., Xalatan eye drop at bedtime, Cozaar 25 mg p.o. daily, Lotemax ophthalmic drop b.i.d., Zofran 8 mg q. 6 hourly p.r.n., pilocarpine ophtha lmic drops b.i.d., clonidine 0.1 mg p.o. b.i.d., hydralazine 25 mg p.o. daily. CONTRAINDICATIONS: None. CODE STATUS: FULL CODE. INPATIENT CONSULTANTS: Dr. Ortiz was consulted for dialysis. Dr. Russell was primary. Sound team was consulted for medical management. TEST RESULTS PENDING ON DISCHARGE: None. ALLERGIES: IODINE CONTRAST. DISCHARGE PLAN: The patient is discharged to Rehab. Subsequently, the patient will follow up with Dr. Russell, her primary care physician, as instructed. HOSPITAL COURSE: A 66-year-old female who was admitted to the hospital for left below-knee amputati on which was done on the day of admission and postoperatively, Sound team was consulted for medical management. Her medical problems remained stable. During this admission, Dr. Ortiz was also consulte d for maintenance hemodialysis. During this hospital course, we found problem with AV fistula and t hat is why Dr. Russell did shunt angiogram. Her shunt was not able to be fixable at this point and t hat is why she required temporary dialysis catheter placement. Dr. Russell will address AV fistula r epair on an outpatient basis. Overall, the patient is doing very well. The patient will follow up with Dr. Russell as instructed. The patient was seen and examined at the bedside today. Please see my progress note from today for further details. We will sign off.
--- NOTE | 2017-01-02 09:31 | PRG ---
DATE OF SERVICE: 01/02/2017 SUBJECTIVE: Ms. Frias is undergoing dialysis. I am at the bedside supervising her dialysis. She is complaining of some left stump pains. I have instructed the nurses to give her some pain medicat ions. She is undergoing dialysis using a right femoral dialysis catheter. No complaints of chest pain or shortness of breath. PHYSICAL EXAMINATION: VITAL SIGNS: Blood pressure 133/71, heart rate 80, respiratory rate 16, temperature 98.3, pulse ox 95%. GENERAL: Awake, alert, comfortable, not in overt distress. SKIN: Adequate turgor. HEENT: Pinkish conjunctivae, anicteric sclerae. NECK: No neck mass, no carotid bruits, no JVD. CHEST: No deformities. LUNGS: Clear breath sounds. No wheezing, no crackles. HEART: Normal sinus rhythm. No murmur, no gallops or rubs. ABDOMEN: Globular, soft, nontender. EXTREMITIES: Bilateral BKA. NEUROLOGIC: Decreased visual alacrity. MEDICATIONS: 01/02/2017 - Reviewed. LABORATORIES 01/01/2017 - White count 11.9, hemoglobin 8.7. 01/02/2017 - Glucose is 80. 01/01/2017 - BUN 53, creatinine 6.62, potassium 5. ASSESSMENT AND PLAN: 1. End-stage renal disease, stable. Tolerating current Thursday, Thursday, Thursday dialysis. Contin ue supportive care, using no heparin due to the recent surgery. Fluid removal only as tolerated. 2. Anemia. Continue weekly Epogen. 3. Left stump pain - p.r.n. pain medication. 4. Dialysis access problem - for eventual AV graft placement by next week with Dr. Russell on the ar ght versus left groin. Recheck basic met and CBC in a.m.
[2017-01-02] MEDS: Acetaminophen/Codeine 30-300mg Tablet PO SCH ×2 (09:48→20:51)
--- NOTE | 2017-01-02 11:18 | PDOC.PN ---
- Subjective Encounter Start Date: 01/02/17 Encounter Start Time: 08:15 Patient seen and examined. No overnight events - Objective Resuscitation Status: Resuscitation Status FULL:Full Resuscitation MAR Reviewed: Yes Vital Signs & Weight: Vital Signs (12 hours) Temp Pulse Resp BP Pulse Ox 01/02/17 04:35 98.3 F 80 16 133/71 95 01/02/17 00:00 98.0 F 77 18 117/65 96 Weight Weight 105 lb 2.568 oz I&O: 01/01/17 01/02/17 01/03/17 06:59 06:59 06:59 Intake Total 700 900 Balance 700 900 Result Diagrams: 01/01/17 05:15 01/01/17 05:15 Additional Labs: Accuchecks 01/02/17 01/02/17 01/01/17 06:32 06:04 20:36 POC Glucose 82 77 94 01/01/17 01/01/17 16:16 13:47 POC Glucose 96 73 Phys Exam - Physical Examination Constitutional: NAD HEENT: PERRLA, moist MMs, sclera anicteric Neck: no JVD, supple Respiratory: no wheezing, no rales, no rhonchi Cardiovascular: RRR, no significant murmur, no rub Gastrointestinal: soft, non-tender, no distention bilateral BKA Lymphatic: no nodes Psychiatric: normal affect Skin: no rash, normal turgor Dx/Plan (1) Status post below knee amputation of left lower extremity Code(s): Z89.512 - ACQUIRED ABSENCE OF LEFT LEG BELOW KNEE Status: Acute (2) Anemia of renal disease Code(s): D63.1 - ANEMIA IN CHRONIC KIDNEY DISEASE Status: Chronic (3) DM type 2 (diabetes mellitus, type 2) Status: Chronic Qualifiers: Diabetes mellitus complication status: with kidney complications Diabetes mellitus prison insulin use: with adjunct faculty for medical terminology use Chronic kidney disease stage: on chronic dialysis (4) ESRD (end stage renal disease) on dialysis Code(s): N18.6 - END STAGE RENAL DISEASE; Z99.2 - DEPENDENCE ON RENAL DIALYSIS Status: Chronic Comment: on HD (5) Glaucoma Code(s): H40.9 - UNSPECIFIED GLAUCOMA Status: Chronic Qualifiers: Glaucoma type: unspecified (6) HTN (hypertension) Code(s): I10 - ESSENTIAL (PRIMARY) HYPERTENSION Status: Chronic Qualifiers: Hypertension type: essential hypertension Qualified Code(s): I10 - Essential (primary) hypertension (7) History of right below knee amputation Code(s): Z89.511 - ACQUIRED ABSENCE OF RIGHT LEG BELOW KNEE Status: Chronic (8) PVD (peripheral vascular disease) Code(s): I73.9 - PERIPHERAL VASCULAR DISEASE, UNSPECIFIED Status: Chronic Comment: h/o right BKA and now with left BKA (9) Protein-calorie malnutrition, moderate Code(s): E44.0 - MODERATE PROTEIN-CALORIE MALNUTRITION Status: Chronic (10) Hypoglycemia associated with type 2 diabetes mellitus Code(s): E11.649 - TYPE 2 DIABETES MELLITUS WITH HYPOGLYCEMIA WITHOUT COMA Status: Acute Comment: resolving - Plan cont 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 Review of Systems - Review of Systems Constitutional: negative: Fever, Chills, Sweats, Weakness, Malaise, Other Eyes: negative: Pain, Vision Change, Conjunctivae Inflammation, Eyelid Inflammation, Redness, Other ENT: negative: Ear Pain, Ear Discharge, Nose Pain, Nose Discharge, Nose Congestion, Mouth Pain, Mouth Swelling, Throat Pain, Throat Swelling, Other Respiratory: negative: Cough, Dry, Shortness of Breath, Hemoptysis, SOB with Excertion, Pleuritic Pain, Sputum, Wheezing Cardiovascular: negative: Chest Pain, Palpitations, Orthopnea, Paroxysmal Noc. Dyspnea, Edema, Light Headedness, Other Gastrointestinal: negative: Nausea, Vomiting, Abdominal Pain, Diarrhea, Constipation, Melena, Hematochezia, Other Genitourinary: negative: Dysuria, Frequency, Incontinence, Hematuria, Retention , Other - Medications/Allergies Allergies/Adverse Reactions: Allergies Allergy/AdvReac Type Severity Reaction Status Date / Time Iodine and Iodide Containing Allergy Intermediate VOMITING, Verified 12/15/16 16 :54 Produc RASH shrimp Allergy Verified 12/15/16 16:54 Medications: Current Medications Acetaminophen (Tylenol) 1,000 mg PO Q6H PRN PRN Reason: Moderate to Severe Pain (6-10) Acetaminophen/Codeine Phosphate (Tylenol #3) 1 tab PO BID [facility] Last Admin: 01/02/17 09:48 Dose: 1 tab Alprazolam (Xanax) 0.25 mg PO BID PRN PRN Reason: Anxiety Aspirin (Aspirin Chewable) 81 mg PO DAILY [facility] [place] Last Admin: 01/01/17 13:38 Dose: 81 mg Brimonidine Tartrate (Alphagan 0.2% Ophth Soln) 1 drop EA EYE DAILY [facility] [place] Last Admin: 01/01/17 13:41 Dose: 1 drop Brinzolamide (Azopt 1% Ophth Soln) 1 drop EA EYE BID [facility] [place] Last Admin: 01/01/17 21:27 Dose: 1 drop Calcium Acetate (Phoslo) 667 mg PO TID-WM [facility] [place] Last Admin: 01/01/17 17:49 Dose: 667 mg Carvedilol (Coreg) 25 mg PO DAILY [facility] [place] Last Admin: 01/01/17 13:33 Dose: 25 mg Clonidine (Catapres) 0.1 mg PO BIDPRN PRN PRN Reason: SBP GREATER THAN 160 Last Admin: 12/28/16 17:23 Dose: 0.1 mg Dextrose/Water (Dextrose 50%) 25 gm SLOW IVP PRN PRN PRN Reason: Hypoglycemia Last Admin: 12/27/16 08:51 Dose: 25 gm Epoetin Ryan (Procrit) 7,500 units SC Q7D@1999 [facility] [place] Last Admin: 12/27/16 21:50 Dose: Not Given Gabapentin (Neurontin) 100 mg PO BID [facility] [place] Last Admin: 01/01/17 21:25 Dose: 100 mg Glucagon (Glucagon) 1 mg IM PRN PRN PRN Reason: Hypoglycemia Hydralazine HCl (Apresoline) 25 mg PO DAILY [facility] [place] Last Admin: 01/01/17 13:39 Dose: 25 mg Hydralazine HCl (Apresoline) 10 mg SLOW IVP Q4H PRN PRN Reason: SBP > 170 or DBP > 100 Last Admin: 12/31/16 13:24 Dose: 10 mg Dextrose/Water (D5w) 1,000 mls @ 0 mls/hr IV .Q0M PRN; As Directed PRN Reason: Hypoglycemia Insulin Human Regular (Humulin R) 0 units SC .MILD SLIDING SCALE PRN PRN Reason: Mild Correctional Scale Last Admin: 12/30/16 16:59 Dose: 4 unit Latanoprost (Xalatan 0.005% Ophth Soln) 1 drop EA EYE HS [facility] [place] Last Admin: 01/01/17 21:25 Dose: 1 drop Losartan Potassium (Cozaar) 25 mg PO DAILY [facility] [place] Last Admin: 01/01/17 13:32 Dose: 25 mg Loteprednol Etabonate (Lotemax 0.5% Ophth Suspension) 1 drop EA EYE BID [facility] [place] Last Admin: 01/01/17 21:28 Dose: Not Given Ondansetron HCl (Zofran Odt) 4 mg PO Q6H PRN PRN Reason: Nausea/Vomiting Ondansetron HCl (Zofran Odt) 8 mg PO PRN PRN PRN Reason: Nausea Last Admin: 12/28/16 08:55 Dose: 8 mg Ondansetron HCl (Zofran) 4 mg IVP Q6H PRN PRN Reason: Nausea Pantoprazole Sodium (Protonix) 40 mg PO DAILY [facility] [place] Last Admin: 01/01/17 13:33 Dose: 40 mg Pilocarpine HCl (Isopto Carpine 1% Ophth Soln) 1 drop EA EYE TID [facility] [place] Last Admin: 01/01/17 21:26 Dose: 1 drop Polyethylene Glycol (Miralax) 17 gm PO DAILY [facility] [place] Last Admin: 01/01/17 13:43 Dose: 17 gm Sodium Chloride (Flush - Normal Saline) 10 ml IVF PRN PRN PRN Reason: Saline Flush Timolol Maleate (Timoptic 0.5% Ophth Soln) 1 drop EA EYE DAILY [facility] [place] Last Admin: 01/01/17 13:43 Dose: 1 drop Tramadol HCl (Ultram) 50 mg PO Q6H PRN PRN Reason: Pain Last Admin: 12/30/16 11:18 Dose: 50 mg Tramadol HCl (Ultram) 100 mg PO Q6H PRN PRN Reason: Pain Last Admin: 12/29/16 01:14 Dose: 100 mg
[2017-01-02] MEDS: Calcium Acetate 667 MG CAP PO SCH ×3 (12:13→16:51)
[2017-01-02] MEDS: Gabapentin 100 MG CAP PO SCH ×2 (12:16→20:51)
[2017-01-02] MEDS: Carvedilol 25 MG TAB PO SCH (12:16)
[2017-01-02] MEDS: hydrALAZINE 25 MG TAB PO SCH (12:16)
[2017-01-02] MEDS: Losartan Potassium 25 MG TAB PO SCH (12:16)
[2017-01-02] MEDS: Polyethylene Glycol 3350 17 GM Packet PO SCH (12:17)
[2017-01-02] MEDS: Pilocarpine 1% Ophth Drops 15 ML BOT EA EYE SCH ×3 (12:17→20:52)
[2017-01-02] MEDS: Brimonidine Tartrate 0.2% Ophth Soln 5 ml Bottle EA EYE SCH (12:19)
[2017-01-02] MEDS: Brinzolamide 1% Ophth Soln 10 ml Bottle EA EYE SCH ×2 (12:19→20:53)
[2017-01-02] MEDS: Timolol 0.5% Ophth Soln 5 ml Bottle EA EYE SCH (12:20)
[2017-01-02] MEDS: Loteprednol Etabonate 0.5% Ophth Suspension 5 ml Bottle EA EYE SCH ×2 (12:21→21:06)
--- NOTE | 2017-01-02 16:54 | PRG ---
DATE OF SERVICE: 01/02/2017 Lana Frias is doing well today, she is waiting discharge, [facility] Discharge orders have been given whenever she has been accepted.
[2017-01-02] MEDS: Latanoprost 0.005% Ophth Soln 2.5 ml Bottle EA EYE SCH (20:53)
[2017-01-02] MEDS: Insulin Regular 300 UNITS/3 ML VIAL SC PRN (21:06)
[2017-01-03 06:04] LABS: #Eosinphils 0.2 thou/uL (0.0-0.7); #Lymphocytes 1.7 thou/uL (1.20-3.40); #Monocytes 0.9 thou/uL (0.11-0.59); #Neutrophils 7.1 thou/uL (1.40-6.50); %Basophils 0.1 % (0.0-1.0); %Lymphocytes 16.9 % (21.0-51.0); %Monocytes 8.8 % (0.0-10.0); Hematocrit 27.2 % (36.0-47.0); Mean Platelet Volume 6.7 fL (7.4-10.4); Red Blood Cell (RBC) Count 3.03 mill/uL (4.20-5.40); White Blood Cell (WBC) Count 9.8 thou/uL (4.8-10.8)
[2017-01-03 06:19] LABS: Anion Gap 12 mmol/L (10-20); BUN (Urea Nitrogen) 16 mg/dL (9.8-20.1); Calc. Creatinine Clearance 17 mL/min (70-130); Calcium 8.5 mg/dL (7.8-10.44); Carbon Dioxide 29 mmol/L (23-31); Chloride 99 mmol/L (98-107); Estimated GFR-MDRD 24
--- NOTE | 2017-01-03 06:59 | PRG ---
DATE OF SERVICE: 01/03/2017 SERVICE: Renal Medicine. SUBJECTIVE: Ms. Frias is a 66-year-old black female with ASRD. Recently, she underwent left BKA. During this hospitalization, her left upper extremity fistula became nonfunctional. Right upper ex tremity AV fistula was placed, but this was not successful. She temporarily has a right femoral hawk lysis catheter. This morning, she is feeling better. She denies any chest pain or shortness of tequila ath. She has undergone dialysis yesterday without any difficulty. PHYSICAL EXAMINATION: VITAL SIGNS: Blood pressure is 113/64, heart rate is 74, respiratory rate 18, temperature 98.9, pul se ox 95%. GENERAL EXAM: Noted to be awake, alert, comfortable, not in distress. SKIN: Adequate turgor. HEENT: She has slightly pale conjunctivae, anicteric sclerae. NECK: No neck mass, no carotid bruits, no JVD. CHEST: No deformities. LUNGS: Decreased breath sounds. HEART: Normal sinus rhythm. No murmur, no gallops, no rubs. ABDOMEN: Globular, soft, nontender, no masses. EXTREMITIES: Bilateral BKA. NEUROLOGICAL EXAM: Awake, oriented to 3 spheres. Moving all extremities. MEDICATIONS: Medications of 01/03/2017 reviewed. LABORATORY DATA: Laboratories of 01/03/2017, white count 9.8, hemoglobin 7.8. Sodium 136, potassiu m 3.9, chloride 99, carbon dioxide 29, BUN 16, creatinine 2.46, glucose 134, calcium 8.5. ASSESSMENT AND PLAN: 1. End-stage renal disease, stable. Continuing current hemodialysis regimen of Thursday, Thursday, Thursday. Tolerating said treatment. Fluid removal only as tolerated. 2. Anemia, having still decreased hemoglobin. Continue Epogen. Currently, the patient is on Epoge n at 7500 units subcutaneously every week. If no significant improvement in the next few days, cons ider increasing Epogen to 10,000 units subcutaneously every week. 3. Peripheral vascular disease, again status post left [id number] amputation, stable. Surgery is following. Overall, prognosis remains guarded. I agree with current management. We will recheck CBC in a.m. Please note, the patient is awaiting transfer to [facility].
[2017-01-03] MEDS ORDERED: Heparin 10,000 UNITS/1 ML VIAL ONE (08:27)
[2017-01-03] MEDS: Calcium Acetate 667 MG CAP PO SCH ×3 (09:02→16:32)
[2017-01-03] MEDS: Gabapentin 100 MG CAP PO SCH ×2 (09:02→22:01)
[2017-01-03] MEDS: Carvedilol 25 MG TAB PO SCH (09:03)
[2017-01-03] MEDS: Acetaminophen/Codeine 30-300mg Tablet PO SCH ×2 (09:03→22:01)
[2017-01-03] MEDS: Bacitracin Zinc 1 Packet TOP SCH (09:03)
[2017-01-03] MEDS: hydrALAZINE 25 MG TAB PO SCH (09:04)
[2017-01-03] MEDS: Polyethylene Glycol 3350 17 GM Packet PO SCH (09:04)
[2017-01-03] MEDS: Losartan Potassium 25 MG TAB PO SCH (09:04)
[2017-01-03] MEDS: Brimonidine Tartrate 0.2% Ophth Soln 5 ml Bottle EA EYE SCH (09:34)
[2017-01-03] MEDS: Brinzolamide 1% Ophth Soln 10 ml Bottle EA EYE SCH ×2 (09:35→22:29)
[2017-01-03] MEDS: Pilocarpine 1% Ophth Drops 15 ML BOT EA EYE SCH ×3 (09:35→22:30)
[2017-01-03] MEDS: Timolol 0.5% Ophth Soln 5 ml Bottle EA EYE SCH (09:38)
[2017-01-03] MEDS: Loteprednol Etabonate 0.5% Ophth Suspension 5 ml Bottle EA EYE SCH ×2 (09:39→22:31)
--- NOTE | 2017-01-03 10:56 | PDOC.PN ---
- Subjective Encounter Start Date: 01/03/17 Encounter Start Time: 08:30 Patient seen and examined. No new complaints. No overnight events - Objective Resuscitation Status: Resuscitation Status FULL:Full Resuscitation MAR Reviewed: Yes Vital Signs & Weight: Vital Signs (12 hours) Temp Pulse Resp BP BP Pulse Ox 01/03/17 09:38 74 126/65 01/03/17 09:04 74 01/03/17 08:25 98.5 F 73 12 126/65 99 01/03/17 04:05 98.9 F 74 18 113/64 95 01/02/17 23:20 98.5 F 75 18 106/85 100 Weight Weight 105 lb 2.568 oz I&O: 01/02/17 01/03/17 01/04/17 06:59 06:59 06:59 Intake Total 900 590 Balance 900 590 Result Diagrams: 01/03/17 05:35 01/03/17 05:35 Additional Labs: Accuchecks 01/03/17 01/02/17 01/02/17 05:44 20:50 15:55 POC Glucose 130 H 164 H 141 H Phys Exam - Physical Examination Constitutional: NAD HEENT: PERRLA, moist MMs, sclera anicteric Neck: no JVD, supple Respiratory: no wheezing, no rales, no rhonchi Cardiovascular: RRR, no significant murmur, no rub Gastrointestinal: soft, non-tender, no distention, positive bowel sounds right groin HD catheter bilateral BKA Psychiatric: normal affect Skin: no rash, normal turgor Dx/Plan (1) Status post below knee amputation of left lower extremity Code(s): Z89.512 - ACQUIRED ABSENCE OF LEFT LEG BELOW KNEE Status: Acute (2) Anemia of renal disease Code(s): D63.1 - ANEMIA IN CHRONIC KIDNEY DISEASE Status: Chronic (3) DM type 2 (diabetes mellitus, type 2) Status: Chronic Qualifiers: Diabetes mellitus complication status: with kidney complications Diabetes mellitus intermediate accountant insulin use: with intermediate accountant use Chronic kidney disease stage: on chronic dialysis (4) ESRD (end stage renal disease) on dialysis Code(s): N18.6 - END STAGE RENAL DISEASE; Z99.2 - DEPENDENCE ON RENAL DIALYSIS Status: Chronic Comment: on HD (5) Glaucoma Code(s): H40.9 - UNSPECIFIED GLAUCOMA Status: Chronic Qualifiers: Glaucoma type: unspecified (6) HTN (hypertension) Code(s): I10 - ESSENTIAL (PRIMARY) HYPERTENSION Status: Chronic Qualifiers: Hypertension type: essential hypertension Qualified Code(s): I10 - Essential (primary) hypertension (7) History of right below knee amputation Code(s): Z89.511 - ACQUIRED ABSENCE OF RIGHT LEG BELOW KNEE Status: Chronic (8) PVD (peripheral vascular disease) Code(s): I73.9 - PERIPHERAL VASCULAR DISEASE, UNSPECIFIED Status: Chronic Comment: h/o right BKA and now with left BKA (9) Protein-calorie malnutrition, moderate Code(s): E44.0 - MODERATE PROTEIN-CALORIE MALNUTRITION Status: Chronic (10) Hypoglycemia associated with type 2 diabetes mellitus Code(s): E11.649 - TYPE 2 DIABETES MELLITUS WITH HYPOGLYCEMIA WITHOUT COMA Status: Acute Comment: resolving (11) Dialysis AV fistula malfunction Code(s): T82.590A - [facility] COMPL OF SURGICALLY CREATED ARTERIOVENOUS FISTULA, INIT Status: Acute - Plan cont current plan of care * medication reviewed as below * symptomatic treatment * HD as per nephro * Dr duenas will address dialysis access * prognosis poor. Review of Systems - Review of Systems Constitutional: negative: Fever, Chills, Sweats, Weakness, Malaise, Other ENT: negative: Ear Pain, Ear Discharge, Nose Pain, Nose Discharge, Nose Congestion, Mouth Pain, Mouth Swelling, Throat Pain, Throat Swelling, Other Respiratory: negative: Cough, Dry, Shortness of Breath, Hemoptysis, SOB with Excertion, Pleuritic Pain, Sputum, Wheezing Cardiovascular: negative: Chest Pain, Palpitations, Orthopnea, Paroxysmal Noc. Dyspnea, Edema, Light Headedness, Other Gastrointestinal: negative: Nausea, Vomiting, Abdominal Pain, Diarrhea, Constipation, Melena, Hematochezia, Other Genitourinary: negative: Dysuria, Frequency, Incontinence, Hematuria, Retention , Other - Medications/Allergies Allergies/Adverse Reactions: Allergies Allergy/AdvReac Type Severity Reaction Status Date / Time Iodine and Iodide Containing Allergy Intermediate VOMITING, Verified 12/15/16 16 :54 Produc RASH shrimp Allergy Verified 12/15/16 16:54 Medications: Current Medications Acetaminophen (Tylenol) 1,000 mg PO Q6H PRN PRN Reason: Moderate to Severe Pain (6-10) Acetaminophen/Codeine Phosphate (Tylenol #3) 1 tab PO BID [facility] Last Admin: 01/03/17 09:03 Dose: 1 tab Alprazolam (Xanax) 0.25 mg PO BID PRN PRN Reason: Anxiety Aspirin (Aspirin Chewable) 81 mg PO DAILY [facility] Last Admin: 01/03/17 09:59 Dose: 81 mg Bacitracin Zinc (Bacitracin) 1 pk TOP DAILY [facility] Last Admin: 01/03/17 09:03 Dose: 1 pk Brimonidine Tartrate (Alphagan 0.2% Ophth Soln) 1 drop EA EYE DAILY [facility] Last Admin: 01/03/17 09:34 Dose: 1 drop Brinzolamide (Azopt 1% Ophth Soln) 1 drop EA EYE BID [facility] Last Admin: 01/03/17 09:35 Dose: 1 drop Calcium Acetate (Phoslo) 667 mg PO TID-WM [facility] Last Admin: 01/03/17 09:02 Dose: 667 mg Carvedilol (Coreg) 25 mg PO DAILY [facility] Last Admin: 01/03/17 09:03 Dose: 25 mg Clonidine (Catapres) 0.1 mg PO BIDPRN PRN PRN Reason: SBP GREATER THAN 160 Last Admin: 12/28/16 17:23 Dose: 0.1 mg Dextrose/Water (Dextrose 50%) 25 gm SLOW IVP PRN PRN PRN Reason: Hypoglycemia Last Admin: 12/27/16 08:51 Dose: 25 gm Epoetin Ryan (Procrit) 7,500 units SC Q7D@2000 [facility] Last Admin: 12/27/16 21:50 Dose: Not Given Gabapentin (Neurontin) 100 mg PO BID [facility] Last Admin: 01/03/17 09:02 Dose: 100 mg Glucagon (Glucagon) 1 mg IM PRN PRN PRN Reason: Hypoglycemia Hydralazine HCl (Apresoline) 25 mg PO DAILY [facility] Last Admin: 01/03/17 09:04 Dose: 25 mg Hydralazine HCl (Apresoline) 10 mg SLOW IVP Q4H PRN PRN Reason: SBP > 170 or DBP > 100 Last Admin: 12/31/16 13:24 Dose: 10 mg Dextrose/Water (D5w) 1,000 mls @ 0 mls/hr IV .Q0M PRN; As Directed PRN Reason: Hypoglycemia Insulin Human Regular (Humulin R) 0 units SC .MILD SLIDING SCALE PRN PRN Reason: Mild Correctional Scale Last Admin: 01/02/17 21:06 Dose: 2 unit Latanoprost (Xalatan 0.005% Ophth Soln) 1 drop EA EYE HS [facility] Last Admin: 01/02/17 20:53 Dose: 1 drop Losartan Potassium (Cozaar) 25 mg PO DAILY [facility] Last Admin: 01/03/17 09:04 Dose: 25 mg Loteprednol Etabonate (Lotemax 0.5% Ophth Suspension) 1 drop EA EYE BID [facility] Last Admin: 01/03/17 09:39 Dose: Not Given Ondansetron HCl (Zofran Odt) 4 mg PO Q6H PRN PRN Reason: Nausea/Vomiting Ondansetron HCl (Zofran Odt) 8 mg PO PRN PRN PRN Reason: Nausea Last Admin: 12/28/16 08:55 Dose: 8 mg Ondansetron HCl (Zofran) 4 mg IVP Q6H PRN PRN Reason: Nausea Pantoprazole Sodium (Protonix) 40 mg PO DAILY [facility] Last Admin: 01/03/17 09:03 Dose: 40 mg Pilocarpine HCl (Isopto Carpine 1% Ophth Soln) 1 drop EA EYE TID [facility] Last Admin: 01/03/17 09:35 Dose: 1 drop Polyethylene Glycol (Miralax) 17 gm PO DAILY [facility] Last Admin: 01/03/17 09:04 Dose: 17 gm Sodium Chloride (Flush - Normal Saline) 10 ml IVF PRN PRN PRN Reason: Saline Flush Timolol Maleate (Timoptic 0.5% Ophth Soln) 1 drop EA EYE DAILY [facility] Last Admin: 01/03/17 09:38 Dose: 1 drop Tramadol HCl (Ultram) 50 mg PO Q6H PRN PRN Reason: Pain Last Admin: 12/30/16 11:18 Dose: 50 mg Tramadol HCl (Ultram) 100 mg PO Q6H PRN PRN Reason: Pain Last Admin: 12/29/16 01:14 Dose: 100 mg
[2017-01-03] MEDS: Insulin Regular 300 UNITS/3 ML VIAL SC PRN (12:11)
[2017-01-03] MEDS: Epoetin (ESRD) 20,000 UNITS/ML SC SCH (22:02)
[2017-01-03] MEDS: Latanoprost 0.005% Ophth Soln 2.5 ml Bottle EA EYE SCH (22:31)
[2017-01-04 05:35] LABS: #Eosinphils 0.3 thou/uL (0.0-0.7); #Lymphocytes 1.7 thou/uL (1.20-3.40); #Monocytes 0.7 thou/uL (0.11-0.59); #Neutrophils 7.5 thou/uL (1.40-6.50); %Basophils 0.3 % (0.0-1.0); %Eosinophils 2.7 % (0.0-10.0); %Lymphocytes 16.5 % (21.0-51.0); %Monocytes 7.3 % (0.0-10.0); Mean Platelet Volume 7.2 fL (7.4-10.4); Red Blood Cell (RBC) Count 3.02 mill/uL (4.20-5.40); White Blood Cell (WBC) Count 10.2 thou/uL (4.8-10.8)
[2017-01-04] MEDS: Calcium Acetate 667 MG CAP PO SCH ×3 (08:14→16:34)
[2017-01-04] MEDS: Losartan Potassium 25 MG TAB PO SCH (08:14)
[2017-01-04] MEDS: Carvedilol 25 MG TAB PO SCH (08:14)
[2017-01-04] MEDS: Gabapentin 100 MG CAP PO SCH ×2 (08:16→21:45)
[2017-01-04] MEDS: hydrALAZINE 25 MG TAB PO SCH (08:16)
[2017-01-04] MEDS: Bacitracin Zinc 1 Packet TOP SCH (08:17)
[2017-01-04] MEDS: Brinzolamide 1% Ophth Soln 10 ml Bottle EA EYE SCH ×2 (08:17→21:47)
[2017-01-04] MEDS: Polyethylene Glycol 3350 17 GM Packet PO SCH (08:18)
[2017-01-04] MEDS: Brimonidine Tartrate 0.2% Ophth Soln 5 ml Bottle EA EYE SCH (08:18)
[2017-01-04] MEDS: Timolol 0.5% Ophth Soln 5 ml Bottle EA EYE SCH (08:19)
[2017-01-04] MEDS: Pilocarpine 1% Ophth Drops 15 ML BOT EA EYE SCH ×3 (08:20→21:47)
[2017-01-04] MEDS: Loteprednol Etabonate 0.5% Ophth Suspension 5 ml Bottle EA EYE SCH ×2 (08:21→21:51)
[2017-01-04] MEDS: Acetaminophen/Codeine 30-300mg Tablet PO SCH ×2 (10:43→21:45)
[2017-01-04] MEDS: Insulin Regular 300 UNITS/3 ML VIAL SC PRN (12:02)
--- NOTE | 2017-01-04 13:30 | PDOC.PN ---
- Subjective Encounter Start Date: 01/04/17 Encounter Start Time: 10:40 Patient seen and examined. No new complaints. No overnight events - Objective Resuscitation Status: Resuscitation Status FULL:Full Resuscitation MAR Reviewed: Yes Vital Signs & Weight: Vital Signs (12 hours) Temp Pulse Resp BP BP Pulse Ox 01/04/17 12:00 98.0 F 73 14 92/60 95 01/04/17 08:19 84 155/78 H 01/04/17 08:16 84 155/78 H 01/04/17 08:10 98.0 F 78 18 98 01/04/17 08:00 98.0 F 78 18 155/84 H 98 01/04/17 04:00 98.1 F 72 12 130/62 95 Weight Weight 105 lb 2.568 oz I&O: 01/03/17 01/04/17 01/05/17 06:59 06:59 06:59 Intake Total 590 300 150 Balance 590 300 150 Result Diagrams: 01/04/17 04:53 01/03/17 05:35 Additional Labs: Accuchecks 01/04/17 01/04/17 01/03/17 10:45 06:42 21:20 POC Glucose 235 H 111 H 127 H 01/03/17 16:14 POC Glucose 128 H Phys Exam - Physical Examination Constitutional: NAD HEENT: PERRLA, moist MMs, sclera anicteric Neck: no JVD, supple Respiratory: no wheezing, no rales, no rhonchi Cardiovascular: RRR, no significant murmur, no rub Gastrointestinal: soft, non-tender, no distention, positive bowel sounds bilateral BKA Lymphatic: no nodes Psychiatric: normal affect Skin: no rash, normal turgor Dx/Plan (1) Status post below knee amputation of left lower extremity Code(s): Z89.512 - ACQUIRED ABSENCE OF LEFT LEG BELOW KNEE Status: Acute (2) Anemia of renal disease Code(s): D63.1 - ANEMIA IN CHRONIC KIDNEY DISEASE Status: Chronic (3) DM type 2 (diabetes mellitus, type 2) Status: Chronic Qualifiers: Diabetes mellitus complication status: with kidney complications Diabetes mellitus fdc insulin use: with superintendent marine oil terminal use Chronic kidney disease stage: on chronic dialysis (4) ESRD (end stage renal disease) on dialysis Code(s): N18.6 - END STAGE RENAL DISEASE; Z99.2 - DEPENDENCE ON RENAL DIALYSIS Status: Chronic Comment: on HD (5) Glaucoma Code(s): H40.9 - UNSPECIFIED GLAUCOMA Status: Chronic Qualifiers: Glaucoma type: unspecified (6) HTN (hypertension) Code(s): I10 - ESSENTIAL (PRIMARY) HYPERTENSION Status: Chronic Qualifiers: Hypertension type: essential hypertension Qualified Code(s): I10 - Essential (primary) hypertension (7) History of right below knee amputation Code(s): Z89.511 - ACQUIRED ABSENCE OF RIGHT LEG BELOW KNEE Status: Chronic (8) PVD (peripheral vascular disease) Code(s): I73.9 - PERIPHERAL VASCULAR DISEASE, UNSPECIFIED Status: Chronic Comment: h/o right BKA and now with left BKA (9) Protein-calorie malnutrition, moderate Code(s): E44.0 - MODERATE PROTEIN-CALORIE MALNUTRITION Status: Chronic (10) Hypoglycemia associated with type 2 diabetes mellitus Code(s): E11.649 - TYPE 2 DIABETES MELLITUS WITH HYPOGLYCEMIA WITHOUT COMA Status: Acute Comment: resolving - Plan cont 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 Review of Systems - Review of Systems Constitutional: negative: Fever, Chills, Sweats, Weakness, Malaise, Other ENT: negative: Ear Pain, Ear Discharge, Nose Pain, Nose Discharge, Nose Congestion, Mouth Pain, Mouth Swelling, Throat Pain, Throat Swelling, Other Respiratory: negative: Cough, Dry, Shortness of Breath, Hemoptysis, SOB with Excertion, Pleuritic Pain, Sputum, Wheezing Cardiovascular: negative: Chest Pain, Palpitations, Orthopnea, Paroxysmal Noc. Dyspnea, Edema, Light Headedness, Other Gastrointestinal: negative: Nausea, Vomiting, Abdominal Pain, Diarrhea, Constipation, Melena, Hematochezia, Other Genitourinary: negative: Dysuria, Frequency, Incontinence, Hematuria, Retention , Other - Medications/Allergies Allergies/Adverse Reactions: Allergies Allergy/AdvReac Type Severity Reaction Status Date / Time Iodine and Iodide Containing Allergy Intermediate VOMITING, Verified 12/15/16 16 :54 Produc RASH shrimp Allergy Verified 12/15/16 16:54 Medications: Current Medications Acetaminophen (Tylenol) 1,000 mg PO Q6H PRN PRN Reason: Moderate to Severe Pain (6-10) Acetaminophen/Codeine Phosphate (Tylenol #3) 1 tab PO BID [facility] Last Admin: 01/04/17 10:43 Dose: Not Given Alprazolam (Xanax) 0.25 mg PO BID PRN PRN Reason: Anxiety Aspirin (Aspirin Chewable) 81 mg PO DAILY [facility] Last Admin: 01/04/17 08:25 Dose: 81 mg Bacitracin Zinc (Bacitracin) 1 pk TOP DAILY [facility] Last Admin: 01/04/17 08:17 Dose: 1 pk Brimonidine Tartrate (Alphagan 0.2% Ophth Soln) 1 drop EA EYE DAILY [facility] Last Admin: 01/04/17 08:18 Dose: 1 drop Brinzolamide (Azopt 1% Ophth Soln) 1 drop EA EYE BID [facility] Last Admin: 01/04/17 08:17 Dose: 1 drop Calcium Acetate (Phoslo) 667 mg PO TID-WM [facility] Last Admin: 01/04/17 12:02 Dose: 667 mg Carvedilol (Coreg) 25 mg PO DAILY [facility] Last Admin: 01/04/17 08:14 Dose: 25 mg Clonidine (Catapres) 0.1 mg PO BIDPRN PRN PRN Reason: SBP GREATER THAN 160 Last Admin: 12/28/16 17:23 Dose: 0.1 mg Dextrose/Water (Dextrose 50%) 25 gm SLOW IVP PRN PRN PRN Reason: Hypoglycemia Last Admin: 12/27/16 08:51 Dose: 25 gm Epoetin Ryan (Procrit) 7,500 units SC Q7D@2000 [facility] Last Admin: 01/03/17 22:02 Dose: 7,500 units Gabapentin (Neurontin) 100 mg PO BID [facility] Last Admin: 01/04/17 08:16 Dose: 100 mg Glucagon (Glucagon) 1 mg IM PRN PRN PRN Reason: Hypoglycemia Hydralazine HCl (Apresoline) 25 mg PO DAILY [facility] Last Admin: 01/04/17 08:16 Dose: 25 mg Hydralazine HCl (Apresoline) 10 mg SLOW IVP Q4H PRN PRN Reason: SBP > 170 or DBP > 100 Last Admin: 12/31/16 13:24 Dose: 10 mg Dextrose/Water (D5w) 1,000 mls @ 0 mls/hr IV .Q0M PRN; As Directed PRN Reason: Hypoglycemia Insulin Human Regular (Humulin R) 0 units SC .MILD SLIDING SCALE PRN PRN Reason: Mild Correctional Scale Last Admin: 01/04/17 12:02 Dose: 3 unit Latanoprost (Xalatan 0.005% Ophth Soln) 1 drop EA EYE HS [facility] Last Admin: 01/03/17 22:31 Dose: 1 drop Losartan Potassium (Cozaar) 25 mg PO DAILY [facility] Last Admin: 01/04/17 08:14 Dose: 25 mg Loteprednol Etabonate (Lotemax 0.5% Ophth Suspension) 1 drop EA EYE BID [facility] Last Admin: 01/04/17 08:21 Dose: Not Given Ondansetron HCl (Zofran Odt) 4 mg PO Q6H PRN PRN Reason: Nausea/Vomiting Ondansetron HCl (Zofran Odt) 8 mg PO PRN PRN PRN Reason: Nausea Last Admin: 12/28/16 08:55 Dose: 8 mg Ondansetron HCl (Zofran) 4 mg IVP Q6H PRN PRN Reason: Nausea Pantoprazole Sodium (Protonix) 40 mg PO DAILY [facility] Last Admin: 01/04/17 08:16 Dose: 40 mg Pilocarpine HCl (Isopto Carpine 1% Ophth Soln) 1 drop EA EYE TID [facility] Last Admin: 01/04/17 08:20 Dose: 1 drop Polyethylene Glycol (Miralax) 17 gm PO DAILY [facility] Last Admin: 01/04/17 08:18 Dose: 17 gm Sodium Chloride (Flush - Normal Saline) 10 ml IVF PRN PRN PRN Reason: Saline Flush Timolol Maleate (Timoptic 0.5% Ophth Soln) 1 drop EA EYE DAILY [facility] Last Admin: 01/04/17 08:19 Dose: 1 drop Tramadol HCl (Ultram) 50 mg PO Q6H PRN PRN Reason: Pain Last Admin: 12/30/16 11:18 Dose: 50 mg Tramadol HCl (Ultram) 100 mg PO Q6H PRN PRN Reason: Pain Last Admin: 12/29/16 01:14 Dose: 100 mg
[2017-01-04] MEDS: Latanoprost 0.005% Ophth Soln 2.5 ml Bottle EA EYE SCH (21:47)
--- NOTE | 2017-01-05 09:00 | PRG ---
DATE OF SERVICE: 01/05/2017 RENAL MEDICINE SUBJECTIVE: Ms. Frias is a 66-year-old black female with ESRD. Currently undergoing dialysis. I am at the bedside supervising her dialysis. Fluid removal only as tolerated by the patient. She vo ices no new complaints. We are awaiting senior care placement with this patient. The patient denies any chest pain or shortness of breath. PHYSICAL EXAMINATION: VITAL SIGNS: Blood pressure ranging from 99/60 to 107/64, heart rate 82, respiratory rate 13, tempe rature 98.5, pulse ox is 100%. GENERAL: Noted to be awake, comfortable, not in distress. SKIN: Adequate turgor. HEENT: Slightly pale conjunctivae, anicteric sclerae, decreased visual acuity. LUNGS: Clear breath sounds. No wheezing, no crackles. HEART: Normal sinus rhythm. No murmur, no gallops or rubs. ABDOMEN: Globular, soft, nontender, no masses. EXTREMITIES: Bilateral BKA. MEDICATIONS: Medications of 01/05/2017 was reviewed. LABORATORY DATA: Laboratories of 01/04/2017; white count 10.2, hemoglobin 8.2; on 01/05/2017 glucos e 96. ASSESSMENT AND PLAN: 1. End-stage renal disease, stable. Continuing current hemodialysis regimen on Thursday, Thursday, Thursday. Fluid removal only as tolerated. Due to the low blood pressure, minimizing fluid removal w ill be done. No changes will be made with the current dialysis regimen. 2. Anemia, continuing weekly Epogen. Patient currently on 7,500 units subcutaneously every week. 3. Relative hypotension - asymptomatic. We will discontinue losartan. 4. Peripheral vascular disease, status post left [id number] amputation. Awaiting placement for senior care.
[2017-01-05] MEDS: Calcium Acetate 667 MG CAP PO SCH (13:04)
--- NOTE | 2017-01-05 13:26 | PRG ---
DATE OF SERVICE: 01/05/2017 Joaquin Frias is doing well today. Her discharge was delayed last week because rehab communicated would not accept her late Thursday and there was no time to gain transferred to a fpc. patient has been accepted to ? [facility]. She has completed dialysis this morning. PHYSICAL EXAMINATION: LUNGS: Clear to auscultation. CARDIAC: Regular rate and rhythm without murmur or gallop. ABDOMEN: Soft. EXTREMITIES: Amputation wound looks good. She has a dialysis catheter in place. The patient is doing well at this time, ready for discharge to the fpc today.
[2017-01-05] MEDS: Brimonidine Tartrate 0.2% Ophth Soln 5 ml Bottle EA EYE SCH (13:40)
[2017-01-05] MEDS: Bacitracin Zinc 1 Packet TOP SCH (13:40)
[2017-01-05] MEDS: Brinzolamide 1% Ophth Soln 10 ml Bottle EA EYE SCH (13:41)
[2017-01-05] MEDS: hydrALAZINE 25 MG TAB PO SCH (13:41)
[2017-01-05] MEDS: Carvedilol 25 MG TAB PO SCH (13:41)
[2017-01-05] MEDS: Gabapentin 100 MG CAP PO SCH (13:41)
[2017-01-05] MEDS: Loteprednol Etabonate 0.5% Ophth Suspension 5 ml Bottle EA EYE SCH (13:41)
[2017-01-05] MEDS: Pilocarpine 1% Ophth Drops 15 ML BOT EA EYE SCH (13:41)
[2017-01-05] MEDS: Polyethylene Glycol 3350 17 GM Packet PO SCH (13:42)
--- NOTE | 2017-01-05 13:58 | PDOC.PN ---
- Subjective Encounter Start Date: 01/05/17 Encounter Start Time: 10:15 Patient seen and examined. No new complaints. No overnight events - Objective Resuscitation Status: Resuscitation Status FULL:Full Resuscitation MAR Reviewed: Yes Vital Signs & Weight: Vital Signs (12 hours) Temp Pulse Resp BP Pulse Ox 01/05/17 12:40 98.7 F 88 16 113/76 93 L 01/05/17 04:00 98.5 F 82 13 99/60 100 Weight Weight 105 lb 2.568 oz I&O: 01/04/17 01/05/17 01/06/17 06:59 06:59 06:59 Intake Total 300 150 270 Output Total 0 Balance 300 150 270 Result Diagrams: 01/04/17 04:53 01/03/17 05:35 Additional Labs: Accuchecks 01/05/17 01/05/17 01/04/17 12:53 05:45 19:46 POC Glucose 101 96 138 H 01/04/17 16:49 POC Glucose 112 H Phys Exam - Physical Examination Constitutional: NAD HEENT: PERRLA, moist MMs, sclera anicteric Neck: no JVD, supple Respiratory: no wheezing, no rales, no rhonchi Cardiovascular: RRR, no significant murmur, no rub Gastrointestinal: soft, non-tender, no distention, positive bowel sounds right thigh HD catheter+ bilateral BKA Psychiatric: normal affect Skin: no rash Dx/Plan (1) Status post below knee amputation of left lower extremity Code(s): Z89.512 - ACQUIRED ABSENCE OF LEFT LEG BELOW KNEE Status: Acute (2) Anemia of renal disease Code(s): D63.1 - ANEMIA IN CHRONIC KIDNEY DISEASE Status: Chronic (3) DM type 2 (diabetes mellitus, type 2) Status: Chronic Qualifiers: Diabetes mellitus complication status: with kidney complications 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: with 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 Chronic kidney disease stage: on chronic dialysis (4) ESRD (end stage renal disease) on dialysis Code(s): N18.6 - END STAGE RENAL DISEASE; Z99.2 - DEPENDENCE ON RENAL DIALYSIS Status: Chronic Comment: on HD (5) Glaucoma Code(s): H40.9 - UNSPECIFIED GLAUCOMA Status: Chronic Qualifiers: Glaucoma type: unspecified (6) HTN (hypertension) Code(s): I10 - ESSENTIAL (PRIMARY) HYPERTENSION Status: Chronic Qualifiers: Hypertension type: essential hypertension Qualified Code(s): I10 - Essential (primary) hypertension (7) History of right below knee amputation Code(s): Z89.511 - ACQUIRED ABSENCE OF RIGHT LEG BELOW KNEE Status: Chronic (8) PVD (peripheral vascular disease) Code(s): I73.9 - PERIPHERAL VASCULAR DISEASE, UNSPECIFIED Status: Chronic Comment: h/o right BKA and now with left BKA (9) Protein-calorie malnutrition, moderate Code(s): E44.0 - MODERATE PROTEIN-CALORIE MALNUTRITION Status: Chronic (10) Hypoglycemia associated with type 2 diabetes mellitus Code(s): E11.649 - TYPE 2 DIABETES MELLITUS WITH HYPOGLYCEMIA WITHOUT COMA Status: Acute Comment: resolving - 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 Review of Systems - Review of Systems Constitutional: negative: Fever, Chills, Sweats, Weakness, Malaise, Other Eyes: negative: Pain, Vision Change, Conjunctivae Inflammation, Eyelid Inflammation, Redness, Other ENT: negative: Ear Pain, Ear Discharge, Nose Pain, Nose Discharge, Nose Congestion, Mouth Pain, Mouth Swelling, Throat Pain, Throat Swelling, Other Respiratory: negative: Cough, Dry, Shortness of Breath, Hemoptysis, SOB with Excertion, Pleuritic Pain, Sputum, Wheezing Gastrointestinal: negative: Nausea, Vomiting, Abdominal Pain, Diarrhea, Constipation, Melena, Hematochezia, Other - Medications/Allergies Allergies/Adverse Reactions: Allergies Allergy/AdvReac Type Severity Reaction Status Date / Time Iodine and Iodide Containing Allergy Intermediate VOMITING, Verified 12/15/16 16 :54 Produc RASH shrimp Allergy Verified 12/15/16 16:54 Medications: Current Medications Acetaminophen (Tylenol) 1,000 mg PO Q6H PRN PRN Reason: Moderate to Severe Pain (6-10) Acetaminophen/Codeine Phosphate (Tylenol #3) 1 tab PO BID [facility] Aspirin (Aspirin Chewable) 81 mg PO DAILY [facility] Last Admin: 01/05/17 13:04 Dose: Not Given Bacitracin Zinc (Bacitracin) 1 pk TOP DAILY [facility] Last Admin: 01/05/17 13:40 Dose: Not Given Brimonidine Tartrate (Alphagan 0.2% Oph Soln) 1 drop EA EYE DAILY [facility] Last Admin: 01/05/17 13:40 Dose: Not Given Brinzolamide (Azopt 1% Ophth Soln) 1 drop EA EYE BID [facility] Last Admin: 01/05/17 13:41 Dose: Not Given Calcium Acetate (Phoslo) 667 mg PO TID-WM [facility] Last Admin: 01/05/17 13:04 Dose: Not Given Carvedilol (Coreg) 25 mg PO DAILY [facility] Last Admin: 01/05/17 13:41 Dose: Not Given Clonidine (Catapres) 0.1 mg PO BIDPRN PRN PRN Reason: SBP GREATER THAN 160 Last Admin: 12/28/16 17:23 Dose: 0.1 mg Dextrose/Water (Dextrose 50%) 25 gm SLOW IVP PRN PRN PRN Reason: Hypoglycemia Last Admin: 12/27/16 08:51 Dose: 25 gm Epoetin Ryan (Procrit) 7,500 units SC Q7D@2000 [facility] Last Admin: 01/03/17 22:02 Dose: 7,500 units Gabapentin (Neurontin) 100 mg PO BID [facility] Last Admin: 01/05/17 13:41 Dose: Not Given Glucagon (Glucagon) 1 mg IM PRN PRN PRN Reason: Hypoglycemia Hydralazine HCl (Apresoline) 25 mg PO DAILY [facility] Last Admin: 01/05/17 13:41 Dose: Not Given Hydralazine HCl (Apresoline) 10 mg SLOW IVP Q4H PRN PRN Reason: SBP > 170 or DBP > 100 Last Admin: 12/31/16 13:24 Dose: 10 mg Dextrose/Water (D5w) 1,000 mls @ 0 mls/hr IV .Q0M PRN; As Directed PRN Reason: Hypoglycemia Insulin Human Regular (Humulin R) 0 units SC .MILD SLIDING SCALE PRN PRN Reason: Mild Correctional Scale Last Admin: 01/04/17 12:02 Dose: 3 unit Latanoprost (Xalatan 0.005% Ophth Soln) 1 drop EA EYE HS [facility] Last Admin: 01/04/17 21:47 Dose: 1 drop Loteprednol Etabonate (Lotemax 0.5% Ophth Suspension) 1 drop EA EYE BID [facility] Last Admin: 01/05/17 13:41 Dose: Not Given Ondansetron HCl (Zofran Odt) 4 mg PO Q6H PRN PRN Reason: Nausea/Vomiting Ondansetron HCl (Zofran Odt) 8 mg PO PRN PRN PRN Reason: Nausea Last Admin: 12/28/16 08:55 Dose: 8 mg Ondansetron HCl (Zofran) 4 mg IVP Q6H PRN PRN Reason: Nausea Pantoprazole Sodium (Protonix) 40 mg PO DAILY [facility] Last Admin: 01/05/17 13:41 Dose: Not Given Pilocarpine HCl (Isopto Carpine 1% Oph Soln) 1 drop EA EYE TID [facility] Last Admin: 01/05/17 13:41 Dose: Not Given Polyethylene Glycol (Miralax) 17 gm PO DAILY [facility] Last Admin: 01/05/17 13:42 Dose: Not Given Sodium Chloride (Flush - Normal Saline) 10 ml IVF PRN PRN PRN Reason: Saline Flush Timolol Maleate (Timoptic 0.5% Oph Soln) 1 drop EA EYE DAILY [facility] Last Admin: 01/04/17 08:19 Dose: 1 drop
[2017-01-05] MEDS: Timolol 0.5% Ophth Soln 5 ml Bottle EA EYE SCH (14:05)
[2017-01-05] MEDS: Acetaminophen/Codeine 30-300mg Tablet PO SCH (14:06)
[2017-01-05 14:48] VITALS: BP 164/78; TEMP 98.3
[2017-01-05] MEDS ORDERED: Acetaminophen/Codeine 30-300mg Tablet PO SCH (21:00)
--- NOTE | 2017-01-08 08:26 | SPC ---
LEFT UPPER EXTREMITY DIALYSIS FISTULOGRAM: RADIATION DOSIMETRY: 0.7 minutes fluoroscopy and DAP of 7.9 uGy*^cm2. HISTORY: The patient has a history of a clotted or nonfunctioning left upper extremity fistula. FINDINGS: Informed consent was obtained from the patient. The left upper extremity fistula was localized using fluoroscopy. The overlying skin was prepped and draped in the usual sterile manner. A 1% Lidocaine solution was used to anesthetize the overlying soft tissues. A small dermatotomy was made. A micro puncture set was used to gain access into the left upper extremity fistula. The fistula was complete ly clotted. There is extensive intimal hyperplasia throughout the left upper extremity fistula. The fistula was clotted. The clot extended into the draining brachial vein. Clot extending in the axil david vein and proximally into the proximal portion of the left brachial vein. This fistula was so ex tensively diseased that there was little to no risk of being able to reconstitute flow. Therefore, d ue to the risk of hemorrhage, attempt at thrombolysis using TPA and angioplasty was not performed. IMPRESSION: Extensively diseased and irregular left upper extremity dialysis fistula. Surgical intervention is r ecommended. POS: CET
== END 2017-01-05 14:49 | DRG 239 ==
LOC: SDC 07:12 → SURG A 10:30 → EDSTATUS 10:43
PROVIDERS: ADMIT Specialist; ATTEND Specialist
PROC: 0Y6J0Z1 Detachment at Left Lower Leg, High, Open Approach (ICD-10-PCS; principal; 2016-12-26)
PROC: B51W1ZZ Fluoroscopy of Dialysis Shunt/Fistula using Low Osmolar Contrast (ICD-10-PCS; 2016-12-26)
PROC: 5A1D70Z Performance of Urinary Filtration, Intermittent, Less than 6 Hours Per Day (ICD-10-PCS; 2016-12-27)
PROC: 0JHL3XZ Insertion of Tunneled Vascular Access Device into Right Upper Leg Subcutaneous Tissue and Fascia, Percutaneous Approach (ICD-10-PCS; 2016-12-31)
PROC: 06HM33Z Insertion of Infusion Device into Right Femoral Vein, Percutaneous Approach (ICD-10-PCS; 2016-12-31)
PROC: B51B1ZA Fluoroscopy of Right Lower Extremity Veins using Low Osmolar Contrast, Guidance (ICD-10-PCS; 2016-12-31)
DX: E11.51 Type 2 diabetes mellitus with diabetic peripheral angiopathy without gangrene (principal); N18.6 End stage renal disease; I95.9 Hypotension, unspecified; E44.0 Moderate protein-calorie malnutrition; I12.0 Hypertensive chronic kidney disease with stage 5 chronic kidney disease or end stage renal disease; T82.868A Thrombosis due to vascular prosthetic devices, implants and grafts, initial encounter; T82.590A Other mechanical complication of surgically created arteriovenous fistula, initial encounter; I87.1 Compression of vein; L97.909 Non-pressure chronic ulcer of unspecified part of unspecified lower leg with unspecified severity; E11.22 Type 2 diabetes mellitus with diabetic chronic kidney disease; Z79.4 Long term (current) use of insulin; Z99.2 Dependence on renal dialysis; D63.1 Anemia in chronic kidney disease; S81.802A Unspecified open wound, left lower leg, initial encounter; E11.649 Type 2 diabetes mellitus with hypoglycemia without coma; E87.5 Hyperkalemia; L08.9 Local infection of the skin and subcutaneous tissue, unspecified; H40.9 Unspecified glaucoma; Z89.511 Acquired absence of right leg below knee; E21.3 Hyperparathyroidism, unspecified; H54.8 Legal blindness, as defined in USA; Z68.21 Body mass index [BMI] 21.0-21.9, adult
CPT/HCPCS: 36415; 36416; 36430; 36901; 71010; 80048; 85025; 86850; 86900; 86901; 87340; 88307; 88311; 90935; 93005; 93010; A4216; C1752; C1769; G0257; G8978-GP-CM; G8979-GP-CK; G8987-GO-CM; G8988-GO-CL; J0131; J0360; J1200; J1642; J1644; J1815; J2001; J2405; J2550; J2704; J2720; J2765; J2930; J2997; J3010; J7050; P9016; Q4081; S0028

== ENCOUNTER 2017-01-21 06:03 | Inpatient (IN) | payer MEDICARE ==
[2017-01-21] MEDS ORDERED: Bupivacaine/Epinephrine 0.25% 30 ML VIAL ONE (06:40)
[2017-01-21] MEDS ORDERED: Protamine Sulfate 50 MG/5 ML VIAL ONE (06:40)
[2017-01-21] MEDS ORDERED: Heparin 5,000 UNITS/ML VIAL ONE (06:40)
[2017-01-21] MEDS ORDERED: CEFAZOLIN/Water 2 GM/20 ML SYRINGE ONE (06:54)
[2017-01-21] MEDS ORDERED: Midazolam HCl 2 mg/2 ml Vial ONE (07:12)
[2017-01-21] MEDS ORDERED: Fentanyl 100 MCG/2 ML VIAL ONE ×2 (07:12→09:49)
[2017-01-21 07:23] LABS: Anion Gap 10 mmol/L (10-20); BUN (Urea Nitrogen) 36 mg/dL (9.8-20.1); Calc. Creatinine Clearance 13 mL/min (70-130); Calcium 9.7 mg/dL (7.8-10.44); Carbon Dioxide 29 mmol/L (23-31); Chloride 104 mmol/L (98-107); Estimated GFR-MDRD 16; Glucose 117 mg/dL (80-115); Potassium 4.3 mmol/L (3.5-5.1); Sodium 139 mmol/L (136-145)
[2017-01-21 07:39] LABS: #Eosinphils 0.4 thou/uL (0.0-0.7); #Lymphocytes 1.2 thou/uL (1.20-3.40); #Monocytes 0.5 thou/uL (0.11-0.59); #Neutrophils 6.9 thou/uL (1.40-6.50); %Basophils 0.1 % (0.0-1.0); %Eosinophils 4.1 % (0.0-10.0); %Monocytes 5.5 % (0.0-10.0); %Neutrophils 77.3 % (42.0-75.0); Anisocytosis MODERATE=16-30 cells (100X) (0-5/hpf); Hypochromia MODERATE=16-30 cells (100X) (0-5/hpf); MDiff Complete? YES; Mean Corpuscular HGB CONC 29.2 g/dL (32.0-36.0); Mean Corpuscular Hemoglobin 26.3 pg (27.0-31.0); Mean Platelet Volume 6.9 fL (7.4-10.4); Ovalocytes SLIGHT = 2-5 cells (100X) (0-1/hpf); Platelet Count 470 thou/uL (130-400); Poikilocytosis SLIGHT = 6-15 cells (100X) (0-5/hpf); RBC Distribution Width 19.7 % (11.5-14.5); Red Blood Cell (RBC) Count 3.05 mill/uL (4.20-5.40); White Blood Cell (WBC) Count 8.9 thou/uL (4.8-10.8)
[2017-01-21] MEDS ORDERED: Dextrose 5% in Water 1,000 ML IV PRN (07:58)
[2017-01-21] MEDS ORDERED: hydrALAZINE 20 MG/ML VIAL SLOW IVP PRN (07:58)
[2017-01-21] MEDS ORDERED: Insulin Regular 300 UNITS/3 ML VIAL SC PRN (07:58)
[2017-01-21] MEDS ORDERED: Dextrose 50% Abboject 50 ML SYRINGE SLOW IVP PRN (07:58)
[2017-01-21] MEDS ORDERED: Ondansetron HCl/PF 4 MG/2 ML Vial IVP PRN ×2 (07:58→10:19)
[2017-01-21] MEDS ORDERED: Ondansetron ODT 4 MG TAB PO PRN (07:58)
[2017-01-21] MEDS ORDERED: ALPRAZolam 0.25 MG TAB PO PRN (08:04)
[2017-01-21] MEDS ORDERED: Acetaminophen/Codeine 30-300mg Tablet PO PRN (08:04)
[2017-01-21] MEDS ORDERED: cloNIDine 0.1 MG TAB PO PRN (08:04)
[2017-01-21] MEDS ORDERED: INSULIN GLARGINE HUM REC ANLOG 6 UNIT SQ SCH (09:00)
[2017-01-21] MEDS ORDERED: [UNRECOGNIZED DRUG - OTHER] SQ SCH (09:00)
[2017-01-21] MEDS ORDERED: Heparin 1,000 UNITS/ML VIAL ONE (10:00)
[2017-01-21] MEDS ORDERED: traMADol HCl 50 MG TAB PO PRN ×2 (10:13)
[2017-01-21] MEDS ORDERED: Promethazine HCl 25 MG/ML VIAL IM PRN (10:19)
[2017-01-21] MEDS ORDERED: Promethazine HCl 25 MG/ML VIAL SLOW IVP PRN (10:19)
--- NOTE | 2017-01-21 10:38 | OP ---
DATE OF PROCEDURE: 01/21/2017 PREOPERATIVE DIAGNOSES: End-stage renal disease, exhausted upper extremity access, bilateral below-k nee amputations, right femoral vein hemodialysis catheter, occluded internal jugular veins. POSTOPERATIVE DIAGNOSES: End-stage renal disease, exhausted upper extremity access, bilateral below- knee amputations, right femoral vein hemodialysis catheter, occluded internal jugular veins, arterios clerotic disease of the common superficial femoral artery and some nonocclusive thrombus in the femor al vein. PROCEDURES: Left thigh dialysis graft tapered #4T07 PTFE graft between the femoral artery and femora l vein. Endarterectomy performed left common superficial profunda femoral artery. SURGEON: Dr. Russell. ANESTHESIA: General. Local 0.25% Marcaine with epinephrine, 30 mL, mixed with 2% Xylocaine, 10 mL, 28 mL volume used. PROCEDURE: Patient was taken to the operating room where under general anesthesia, the lower abdomen and left thigh prepared with ChloraPrep, draped in routine fashion. Local anesthetic infiltrated in to skin and subcutaneous tissue about the operative sites. Incision made in left groin longitudinall y, carried down through the skin and subcutaneous tissue. Common femoral, superficial profunda femor al artery and femoral vein identified, dissected free, surrounded with Silastic vessel loops. A coun ter incision was then made in the mid to slightly distal and mid slightly lateral left thigh and a Ke lly-Wick tunneler used to tunnel the graft placing the tapered end of the graft laterally and the 7-m m end medially. Patient was then given 6000 units of heparin intravenously. After adequate circulat ion time, the femoral vein proximally and distally and the large perforating branch clamped with vasc ular clamps. Longitudinal venotomy made, elongated sharply for a 3 cm venotomy. There was some nono cclusive thrombus removed and the 7-mm end of the graft tailored to length for cobra head anastomosis and continuous suture of 5-0 Prolene used for the anastomosis. Vascular clamps were released and th ere was good outflow in the graft. Vascular clamp was placed on the graft. At this point, vascular clamps were placed on the common profunda and superficial femoral arteries and longitudinal arterioto my made sharply, elongated with Carrera scissors. There was a significant arteriosclerotic disease req uiring partial endarterectomy with a tacking suture posteriorly proximally 6-0 Prolene used. A 2.5-3 cm arteriotomy made straddling the common superficial femoral artery overlying the profunda femoral artery orifice, which allowed for the endarterectomy described. Graft tailored to appropriate length for Cobra anastomosis. Continuous suture of 5-0 Prolene used for the anastomosis. The patient tole rated the procedure well, vascular clamps were released and there was good flow in the graft evident by Doppler interrogation outflow. Good hemostasis noted. Protamine not administered. Surgicel was utilized. Subcutaneous tissues of all wounds approximated with continuous suture of 3-0 Monocryl and the groin 2 layer subcutaneous tissue closure used, skin approximated with continuous subcuticular s uture of 4-0 Monocryl and DermaGlue applied.
[2017-01-21] MEDS ORDERED: Heparin 10,000 UNITS/ 10 ML VIAL ONE ×5 (10:58→15:08)
[2017-01-21] MEDS ORDERED: Ondansetron ODT 8 MG TAB PO SCH (12:00)
[2017-01-21 12:28] VITALS: BMI 34.0
[2017-01-21] MEDS ORDERED: Epoetin (NON-ESRD) 10,000 UNITS/ML VIAL SC SCH (13:00)
[2017-01-21] MEDS: Acetaminophen 500 MG TAB PO SCH ×5 (13:09→21:12)
[2017-01-21] MEDS: Brimonidine Tartrate 0.2% Ophth Soln 5 ml Bottle EA EYE SCH (13:10)
[2017-01-21] MEDS: Brinzolamide 1% Ophth Soln 10 ml Bottle EA EYE SCH ×2 (13:10→21:12)
[2017-01-21] MEDS: Carvedilol 25 MG TAB PO SCH (13:10)
[2017-01-21] MEDS: Loteprednol Etabonate 0.5% Ophth Suspension 5 ml Bottle EA EYE SCH ×2 (13:11→21:13)
[2017-01-21] MEDS: Losartan 25 MG TAB PO SCH (13:11)
[2017-01-21] MEDS: Docusate 100 MG CAP PO SCH ×2 (13:11→21:18)
[2017-01-21] MEDS: Insulin Detemir 100 UNITS/ML 6 UNITS in Pre-Filled Syringe 1 EACH SC SCH ×2 (13:11→21:26)
[2017-01-21] MEDS: Pilocarpine 1% Ophth Drops 15 ML BOT EA EYE SCH ×3 (13:12→21:13)
[2017-01-21] MEDS: Calcium Acetate 667 MG CAP PO SCH ×3 (13:19→17:03)
[2017-01-21] MEDS ORDERED: Epoetin (ESRD) 20,000 UNITS/ML SC SCH (14:00)
[2017-01-21] MEDS: hydrALAZINE 25 MG TAB PO SCH ×2 (14:42→21:18)
[2017-01-21] MEDS ORDERED: Lidocaine 1% PF 5 ML VIAL ONE (15:08)
[2017-01-21] MEDS ORDERED: PROPOFOL 200 MG/20 ML VIAL ONE (15:08)
[2017-01-21] MEDS ORDERED: PHENYLEPHRINE-NS 100 MCG/ML 10 ML SYRINGE ONE (15:08)
[2017-01-21] MEDS: Ondansetron HCl/PF 4 MG/2 ML Vial SLOW IVP SCH ×2 (16:15→21:05)
--- NOTE | 2017-01-21 16:25 | PRG ---
DATE OF SERVICE: 01/21/2017 SUBJECTIVE: Ms. Frias is a 67-year-old black female with ESRD and admitted for placement of a left thigh dialysis graft. She underwent surgery with Dr. Russell. A left thigh dialysis graft was placed within the femoral artery and femoral vein. Endarterectomy performed on the left common superficial profunda. She is currently at dialysis. We are not using any prior heparin. I am at the bedside, supervising her dialysis. OBJECTIVE: VITAL SIGNS: Blood pressure is 122/62, heart rate 75, respiratory rate 18, temperature 97.1, and pul se ox 100%. GENERAL: Noted to be awake, alert, comfortable, not in distress. SKIN: Adequate turgor. HEENT: Slightly pale conjunctivae, anicteric sclerae. Decreased visual acuity. NECK: No neck mass, no carotid bruits. No JVD. CHEST: No deformities. LUNGS: Clear breath sounds. No wheezing, no crackles. HEART: Normal sinus rhythm. No murmur, no gallops, no rubs. ABDOMEN: Globular, soft, nontender, no masses. EXTREMITIES: No edema, no deformities. MEDICATIONS: On 01/21/2017 - Tylenol with codeine p.r.n., Xanax 0.25 mg p.o. b.i.d., aspirin 81 mg d aily, Alphagan eyedrop as directed, PhosLo 667 mg 1 tab t.i.d. with meals, Coreg 25 mg daily, clonidi ne 0.1 mg p.r.n., Procrit 7500 units subcu q. week, insulin detemir 6 units subcutaneously b.i.d., lo sartan 25 mg daily, and Zofran 4 mg IV q.6 hours p.r.n. LABORATORY DATA: On 01/21/2017 - White count 8.9, hemoglobin 8. Sodium 139, potassium 4.3, chloride 104, carbon dioxide 29, BUN 36, creatinine 3.38, glucose 117, and calcium 9.7. ASSESSMENT AND PLAN: 1. End-stage renal disease, stable. Tolerating current hemodialysis regimen, we will continue , Thursday, Thursday dialysis regimen. Again, fluid removal only as tolerated by the patient. Lex martinez Thursday, Thursday, Thursday dialysis. I again reviewed the last Kt/V, suggests she is adequately d ialyzed with the current dialysis regimen. She has a temporary right femoral dialysis catheter. Lef t AV graft has been placed by the surgeon. 2. Anemia - Continuing weekly Epogen 7500 units subcutaneously every week. 3. Hypertension - Continue current blood pressure meds.
[2017-01-21] MEDS ORDERED: Latanoprost 0.005% Ophth Soln 2.5 ml Bottle EA EYE SCH (21:00)
[2017-01-22] MEDS: Acetaminophen 500 MG TAB PO SCH ×3 (01:23→09:08)
[2017-01-22] MEDS: Ondansetron HCl/PF 4 MG/2 ML Vial SLOW IVP SCH ×2 (04:02→09:30)
[2017-01-22 05:38] LABS: Anion Gap 16 mmol/L (10-20); BUN (Urea Nitrogen) 20 mg/dL (9.8-20.1); Calc. Creatinine Clearance 19 mL/min (70-130); Calcium 9.4 mg/dL (7.8-10.44); Carbon Dioxide 33 mmol/L (23-31); Chloride 99 mmol/L (98-107); Estimated GFR-MDRD 25; Glucose 100 mg/dL (80-115); Potassium 3.5 mmol/L (3.5-5.1); Sodium 144 mmol/L (136-145)
[2017-01-22 05:45] LABS: #Eosinphils 0.1 thou/uL (0.0-0.7); #Lymphocytes 0.9 thou/uL (1.20-3.40); #Monocytes 0.5 thou/uL (0.11-0.59); #Neutrophils 7.6 thou/uL (1.40-6.50); %Basophils 0.4 % (0.0-1.0); %Eosinophils 0.8 % (0.0-10.0); %Lymphocytes 10.3 % (21.0-51.0); %Monocytes 5.7 % (0.0-10.0); %Neutrophils 82.9 % (42.0-75.0); Mean Corpuscular HGB CONC 29.8 g/dL (32.0-36.0); Mean Corpuscular Hemoglobin 26.7 pg (27.0-31.0); Mean Corpuscular Volume 89.6 fl (81.0-99.0); Mean Platelet Volume 7.7 fL (7.4-10.4); Platelet Count 486 thou/uL (130-400); RBC Distribution Width 19.9 % (11.5-14.5); Red Blood Cell (RBC) Count 3.39 mill/uL (4.20-5.40); White Blood Cell (WBC) Count 9.2 thou/uL (4.8-10.8)
[2017-01-22] MEDS: Losartan 25 MG TAB PO SCH (08:45)
[2017-01-22] MEDS: hydrALAZINE 25 MG TAB PO SCH (08:45)
[2017-01-22] MEDS: Carvedilol 25 MG TAB PO SCH (08:45)
[2017-01-22] MEDS: Brimonidine Tartrate 0.2% Ophth Soln 5 ml Bottle EA EYE SCH (09:08)
[2017-01-22] MEDS: Docusate 100 MG CAP PO SCH (09:08)
[2017-01-22] MEDS: Brinzolamide 1% Ophth Soln 10 ml Bottle EA EYE SCH (09:08)
[2017-01-22] MEDS: Calcium Acetate 667 MG CAP PO SCH ×2 (09:08→12:07)
[2017-01-22] MEDS: Loteprednol Etabonate 0.5% Ophth Suspension 5 ml Bottle EA EYE SCH (09:09)
[2017-01-22] MEDS: Pilocarpine 1% Ophth Drops 15 ML BOT EA EYE SCH (09:09)
[2017-01-22] MEDS: Insulin Detemir 100 UNITS/ML 6 UNITS in Pre-Filled Syringe 1 EACH SC SCH (09:09)
[2017-01-22] MEDS ORDERED: Scopolamine 1.5 mg/72 hour Patch TD SCH (09:30)
[2017-01-22] MEDS ORDERED: Metoclopramide HCl 10 MG/2 ML VIAL IVP SCH (09:30)
--- NOTE | 2017-01-22 09:53 | DIS ---
TRANSFERRED TO [facility]P: 01/22/2017 DISCHARGE MEDICATIONS: To resume her prehospitalization medications which are lengthy, see her histo ry and physical. DISCHARGE DIAGNOSES: 1. End-stage renal disease exhausting both upper extremities for dialysis access with bilateral inte rnal jugular vein occlusion, dialyzing via right femoral vein dialysis catheter. 2. Bilateral amputation status. 3. Blindness secondary to diabetic retinopathy. 4. Hypertension. 6. Arteriosclerosis. PROCEDURES: Left thigh dialysis graft tapered 4T 07 femoral artery to femoral vein. Note good bruit noticed in the graft on discharge. Follow up in the office in 2-3 weeks. Continue dialysis using her hemodialysis catheter, right femor al vein. HISTORY: A 67-year-old black female who lives in the [place] [facility] with the above medical problems, a dmitted for placement left thigh dialysis graft for which she was observed overnight and dialyzed pos toperatively and discharged home. Hemoglobin 9.7 on discharge. The patient will follow up in my off ice in 2-3 weeks. Continue to dialyze using right femoral vein catheter.
[2017-01-22 11:30] VITALS: BP 175/77; TEMP 98.6
[2017-01-22] MEDS ORDERED: Metoclopramide 10 MG/10 ML UDCUP PO SCH (11:30)
== END 2017-01-22 13:30 | DRG 252 ==
LOC: SDC 06:03 → SURG B 07:58
PROVIDERS: ADMIT Specialist; ATTEND Specialist
PROC: 04CL0ZZ Extirpation of Matter from Left Femoral Artery, Open Approach (ICD-10-PCS; principal; 2017-01-21)
PROC: 041L0ZS Bypass Left Femoral Artery to Lower Extremity Vein, Open Approach (ICD-10-PCS; 2017-01-21)
PROC: 5A1D70Z Performance of Urinary Filtration, Intermittent, Less than 6 Hours Per Day (ICD-10-PCS; 2017-01-21)
DX: T82.590A Other mechanical complication of surgically created arteriovenous fistula, initial encounter (principal); N18.6 End stage renal disease; E11.22 Type 2 diabetes mellitus with diabetic chronic kidney disease; I82.B12 Acute embolism and thrombosis of left subclavian vein; I12.0 Hypertensive chronic kidney disease with stage 5 chronic kidney disease or end stage renal disease; E11.319 Type 2 diabetes mellitus with unspecified diabetic retinopathy without macular edema; Z89.512 Acquired absence of left leg below knee; Z89.511 Acquired absence of right leg below knee; I70.202 Unspecified atherosclerosis of native arteries of extremities, left leg; Z79.82 Long term (current) use of aspirin; Z79.4 Long term (current) use of insulin; D63.1 Anemia in chronic kidney disease; H54.7 Unspecified visual loss; Z91.041 Radiographic dye allergy status
CPT/HCPCS: 36415; 36416; 80048; 85025; 86850; 86900; 86901; 90935; G0257; J0131; J0360; J0885; J1642; J1644; J1815; J2001; J2250; J2405; J2704; J2720; J2765; J3010; L8670; Q4081

== ENCOUNTER 2017-04-21 10:30 | Inpatient (IN) | payer MEDICARE ==
--- NOTE | 2017-04-21 21:42 | HP ---
HISTORY OF PRESENT ILLNESS: Joaquin Frias is a 67-year-old female, bilateral below the knee amputee, bertram huerta on Thursday, Thursday, and Thursday noon in [facility] followed by Dr. Dennis Ortiz. She has a left thigh dialysis graft. She had placement of a left thigh dialysis graft on 01/21/2017, is using that for dialysis. She has exhausted left upper extremity access and had to have exploration o f her right axilla noting it inadequate for access. I could not find an adequate venous outflow. Hakeem gorman had a left below the knee amputation on 12/26/2016. Patient recently fell and injured her left BKA stump. She has contracture of left BKA stump and has an open wound undermining communicating to the tibia. She has a large eschar on her knee which we have been treated locally with antibiotic ointme nt and Telfa that has not been infected. Because of the open wound developed in the left BKA stump, options were given to the patient and the family regarding the extensive wound care, wound VAC versus fomab-qpd-ztcs amputation had chosen the latter. Plan is for a left ethse-but-eujh amputation. Jose yanesy and the patient understand the risks and benefits and consents. We will proceed. I have also ta lked to the family regarding her code status. Patient and the family agreed on DNR status. She does not want chest compressions nor defibrillation or intubation, but we will provide care otherwise. S he is visually impaired. ALLERGIES: IODINE, nausea, vomiting, but no rash. MEDICATIONS: Hydralazine 25 mg once a day, latanoprost eyedrops every evening, calcium acetate 667 m g capsules 3 times a day, Zofran as needed, Tylenol #3, clonidine hydrochloride 0.3 mg b.i.d. p.r.n., losartan, potassium 25 mEq once a day, Coreg (carvedilol) 25 mg b.i.d. with food, aspirin 81 mg a da y, brinzolamide eyedrops three times a day, Lotemax eyedrops four times a day, pilocarpine eyedrops t hree times a day, brimonidine tartrate eyedrops three times a day, Colace twice a day, Levemir 8 unit s subcu twice a day, FlexPen, insulin detemir, Renvela 800 mg t.i.d. with meals, Reglan 10 mg q.i.d., lisinopril 10 mg once a day, RenaPlex D daily and Macrobid 100 mg twice daily. PAST MEDICAL HISTORY: Diabetes mellitus, glaucoma, cataracts, visual impairment, near blindness tota l, hypertension, end-stage renal disease on dialysis at [facility] Thursday, Thursday, and Thursday , asymptomatic cholelithiasis, right adrenal nodule, L1 compression fracture, anemia of chronic disea se, PAD, GERD, diastolic dysfunction, echocardiogram in 2014, normal EF, hearing loss, blindness. PAST SURGICAL HISTORY: Hysterectomy in 1978. Left arm fistula with revisions. Exhausted left upper extremity access, right arm exploration noting absence of adequate venous outflow for a fistula, lef t thigh dialysis graft in 2016. Left BKA in 12/2016, left thigh dialysis graft on 01/21/2017, previo us right edxwh-xci-wuhy amputation. History of mild coronary artery disease on catheterization in 2009. Negative adenosine Cardiolite st ress test in 2014. SOCIAL HISTORY: Tobacco: None. Alcohol: None. Drug use: None. PHYSICAL EXAMINATION: VITAL SIGNS: Blood pressure 107/46, heart rate 75, temperature 97.9 degrees. GENERAL: Patient is visually impaired. She arrives to my office in a wheelchair. LUNGS: Clear to auscultation. CARDIAC: Irregular rate and rhythm with 2/6 ejection murmur. Left thigh dialysis graft proximal left thigh, bilateral below the knee amputations, left BKA, open w ound BKA stump, contracted left knee, unable to extend it large eschar 6 cm in diameter without infec tion, left knee wound, left BKA stump 3 cm opening undermines 6 cm bilaterally medially and laterally , large opening communicates with the tibia, necrotic tissue debrided. Sterile dressing applied. LABORATORY DATA: The patient presented to [facility] in [place]. On 04/20/2017, white cou nt 15, hemoglobin 10.9, platelet count 520,000. Urinalysis large bacteria and nitrite negative. Lizeth st x-ray, right upper lung nodule. Followup CAT scan recommended, but due to her medical condition, it probably will not be pursued. CT scan cervical spine, small acute C5 anterior inferior endplate, osteophyte avulsing fracture suggestive of anterior longitudinal ligament injury up to moderate cervi raiza spine degenerative changes redemonstrated. CT scan of the head negative, small vessel disease, p ersistent central disk herniations C4-5, C5-6 largest bilateral internal carotid artery calcification s. Cervical spine collar in place on her head, ears, eyes, nose and throat exam. ASSESSMENT AND PLAN: 1. Left fxnft-plat-znyypwcvad knee contracture. Open wound, left BKA stump. There is no cellulitis . Wound is extensive. Given the treatment options versus prolonged wound care, family and patient h ave agreed with left above the knee amputation. We will plan this as a palliative procedure. Risk o f infection, bleeding, reoperation discussed. 2. End-stage renal disease on maintenance dialysis via left thigh dialysis graft. This graft is hari y proximal, should be out the field of the amputation. 3. Diastolic dysfunction, 2/6 ejection murmur previously noted by Dr. Lorenz in past. Echocardiog amna in 2015, diastolic dysfunction, normal ejection fraction. 4. Diabetes mellitus. 5. Visual impairment, blindness. 6. Impaired mobility. 7. As discussed above DNR status. 8. Recent fall at home resulting in the above cervical spine fracture treated with a cervical spine collar.
[2017-04-22] MEDS ORDERED: Midazolam HCl 2 mg/2 ml Vial ONE (09:41)
[2017-04-22] MEDS ORDERED: Dexamethasone 4 mg/ml Vial ONE (09:41)
[2017-04-22] MEDS ORDERED: Fentanyl 100 MCG/2 ML VIAL ONE (09:41)
[2017-04-22] MEDS ORDERED: Gentamicin Sulfate 80 MG in Premix Bag 1 BAG IVPB SCH (10:15)
[2017-04-22 10:21] LABS: #Basophils 0.1 thou/uL (0.0-0.2); #Eosinphils 0.2 thou/uL (0.0-0.7); #Lymphocytes 1.2 thou/uL (1.20-3.40); #Monocytes 0.8 thou/uL (0.11-0.59); #Neutrophils 9.9 thou/uL (1.40-6.50); %Basophils 0.5 % (0.0-1.0); %Eosinophils 1.7 % (0.0-10.0); %Lymphocytes 9.8 % (21.0-51.0); %Monocytes 6.9 % (0.0-10.0); %Neutrophils 81.1 % (42.0-75.0); Hemoglobin 11.2 g/dL (12.0-16.0); Mean Corpuscular HGB CONC 27.8 g/dL (32.0-36.0); Mean Corpuscular Hemoglobin 22.5 pg (27.0-31.0); Mean Corpuscular Volume 80.8 fl (81.0-99.0); Mean Platelet Volume 7.1 fL (7.4-10.4); Platelet Count 599 thou/uL (130-400); RBC Distribution Width 19.8 % (11.5-14.5); Red Blood Cell (RBC) Count 4.96 mill/uL (4.20-5.40); White Blood Cell (WBC) Count 12.6 thou/uL (4.8-10.8)
[2017-04-22 10:26] LABS: Anion Gap 18 mmol/L (10-20); BUN (Urea Nitrogen) 41 mg/dL (9.8-20.1); Calc. Creatinine Clearance 0 mL/min (70-130); Carbon Dioxide 28 mmol/L (23-31); Chloride 94 mmol/L (98-107); Estimated GFR-MDRD 10; Glucose 157 mg/dL (80-115); Potassium 4.4 mmol/L (3.5-5.1); Sodium 136 mmol/L (136-145)
[2017-04-22 10:39] LABS: Anisocytosis SLIGHT = 6-15 cells (100X) (0-5/hpf); Hypochromia SLIGHT = 6-15 cells (100X) (0-5/hpf); MDiff Complete? YES; PLT Morphology Comment Appears Increased; Polychromasia MODERATE = 3-4 cells (100X) (0-2/hpf)
[2017-04-22] MEDS ORDERED: Ketorolac Tromethamine 30 MG/ML VIAL ONE (11:19)
[2017-04-22] MEDS ORDERED: Fentanyl 250 MCG/5 ML VIAL ONE (12:20)
[2017-04-22] MEDS ORDERED: Dextrose 50% Abboject 50 ML SYRINGE SLOW IVP PRN ×2 (12:41→12:43)
[2017-04-22] MEDS ORDERED: Dextrose 5% in Water 1,000 ML IV PRN ×2 (12:41→12:43)
[2017-04-22] MEDS ORDERED: Ondansetron ODT 4 MG TAB PO PRN (12:43)
[2017-04-22] MEDS ORDERED: hydrALAZINE 20 MG/ML VIAL SLOW IVP PRN (12:43)
[2017-04-22] MEDS ORDERED: Ondansetron HCl/PF 4 MG/2 ML Vial IVP PRN ×2 (12:43→13:13)
[2017-04-22] MEDS ORDERED: HumaLOG 300 UNITS/3 ML VIAL SC PRN (12:43)
[2017-04-22] MEDS ORDERED: HYDROcodone/Acetaminophen 10/325 mg Tablet PO PRN ×2 (12:43)
[2017-04-22] MEDS ORDERED: Sodium Chloride 0.9% 1,000 ML IV SCH (12:45)
[2017-04-22] MEDS ORDERED: traMADol HCl 50 MG TAB PO PRN (12:46)
[2017-04-22] MEDS ORDERED: Acetaminophen 500 MG TAB PO PRN (12:46)
[2017-04-22] MEDS ORDERED: Acetaminophen/Codeine 30-300mg Tablet PO PRN (12:53)
[2017-04-22] MEDS ORDERED: Promethazine HCl 25 MG/ML VIAL IM PRN (13:13)
[2017-04-22] MEDS ORDERED: HYDROmorphone 2 MG/ML VIAL SLOW IVP PRN (13:13)
[2017-04-22] MEDS ORDERED: Promethazine HCl 25 MG/ML VIAL SLOW IVP PRN (13:13)
--- NOTE | 2017-04-22 13:44 | OP ---
DATE OF OPERATION: 04/22/2017 PREOPERATIVE DIAGNOSES: End-stage renal disease, diabetes, bilateral amputee below the knees with le ft knee contracture and open wound left below the knee secondary to a fall and injury with exposed wo und to tibia. POSTOPERATIVE DIAGNOSES: End-stage renal disease, diabetes, bilateral amputee below the knees with l eft knee contracture and open wound left below the knee secondary to a fall and injury with exposed w ound to tibia. PROCEDURE: Left yauhi-kpu-plmd amputation. SURGEON: Dr. Keo Russell. ANESTHESIA: General. ESTIMATED BLOOD LOSS: 25 mL. BLOOD TRANSFUSED: None. PROCEDURE IN DETAIL: Patient taken to the operating room where under general anesthesia, left lower extremity was prepped with ChloraPrep, draped in routine fashion. Incision made for santiago mahoneyi on for above the knee amputation. Incision carried out skin and subcutaneous tissue through the fasc ia and muscular bundles and fascia divided with the cautery. Vascular bundles divided between clamps and ligated with 2-0 silk ties. Sciatic nerve clamped and ligated with 2-0 silk ties. Femur transe cted with Gigli saw after elevating the periosteum proximally and the edges smoothed with a rasp. Wo und irrigated. Irrigant evacuated. Good hemostasis obtained with the cautery. Fascia approximated with uzqtwz-li-qmwny suture of 2-0 Vicryl, skin with mushtaq. Sterile dressing applied.
[2017-04-22] MEDS ORDERED: PROPOFOL 200 MG/20 ML VIAL ONE (16:14)
[2017-04-22] MEDS ORDERED: Dexamethasone 20 MG/5 ML VIAL ONE (16:14)
[2017-04-22] MEDS ORDERED: Lidocaine 1% PF 5 ML VIAL ONE (16:14)
[2017-04-22] MEDS ORDERED: Ondansetron HCl/PF 4 MG/2 ML Vial ONE (16:14)
[2017-04-22] MEDS: hydrALAZINE 25 MG TAB PO SCH ×2 (16:28→20:50)
[2017-04-22] MEDS: Pilocarpine 1% Ophth Drops 15 ML BOT EA EYE SCH ×3 (16:28→20:48)
[2017-04-22] MEDS: Cilostazol 100 MG TAB PO SCH (17:40)
[2017-04-22] MEDS: Ondansetron ODT 8 MG TAB PO SCH ×2 (18:35→20:50)
[2017-04-22] MEDS: Calcium Acetate 667 MG CAP PO SCH (18:35)
[2017-04-22] MEDS: Acetaminophen 500 MG TAB PO SCH ×2 (18:35→20:49)
--- NOTE | 2017-04-22 19:06 | EKG ---
Test Reason : PREOP Blood Pressure : / mmHG Vent. Rate : 072 BPM Atrial Rate : 072 BPM P-R Int : 140 ms QRS Dur : 082 ms QT Int : 414 ms P-R-T Axes : 021 -20 013 degrees QTc Int : 453 ms Normal sinus rhythm Poor anterior R wave progression questionable significance When compared with ECG of 26-DEC-2016 07:51, T wave amplitude has decreased in Anterior leads Confirmed by DR. Naseem WELLINGTON ([id number]) on 04/22/2017 7:06:39 PM Referred By: SILVIA Confirmed By:DR. Naseem WELLINGTON
[2017-04-22] MEDS: Brinzolamide 1% Ophth Soln 10 ml Bottle EA EYE SCH (20:45)
[2017-04-22] MEDS: Loteprednol Etabonate 0.5% Ophth Suspension 5 ml Bottle EA EYE SCH (20:46)
[2017-04-22] MEDS: Nitrofurantoin Monohyd/M-Cryst 100 MG CAP PO SCH (20:49)
[2017-04-22] MEDS: Docusate 100 MG CAP PO SCH (20:51)
[2017-04-22] MEDS: Azelastine 137 MCG/Spray 30 ML NS SCH (20:51)
[2017-04-22] MEDS: Latanoprost 0.005% Ophth Soln 2.5 ml Bottle EA EYE SCH (20:55)
[2017-04-22] MEDS ORDERED: FLU VACC TS2017-18 (>65YR) 0.5 ML SYRINGE IM ONE (21:00)
[2017-04-22] MEDS ORDERED: [UNRECOGNIZED DRUG - OTHER] SQ SCH (21:00)
[2017-04-22] MEDS ORDERED: Prevnar 13-Val Conj/PF 0.5 ML SYRINGE IM ONE (21:00)
[2017-04-22] MEDS ORDERED: INSULIN GLARGINE HUM REC ANLOG 6 UNIT SQ SCH (21:00)
[2017-04-22] MEDS: Insulin Detemir 100 UNITS/ML 6 UNITS in Pre-Filled Syringe 1 EACH SC SCH (21:07)
[2017-04-23] MEDS: Ondansetron ODT 8 MG TAB PO SCH ×4 (04:55→23:57)
[2017-04-23] MEDS: Acetaminophen 500 MG TAB PO SCH ×4 (04:55→23:58)
[2017-04-23 06:15] LABS: Anion Gap 15 mmol/L (10-20); BUN (Urea Nitrogen) 50 mg/dL (9.8-20.1); Calc. Creatinine Clearance 7 mL/min (70-130); Calcium 9.6 mg/dL (7.8-10.44); Carbon Dioxide 27 mmol/L (23-31); Chloride 96 mmol/L (98-107); Estimated GFR-MDRD 9; Glucose 116 mg/dL (80-115); Potassium 5.3 mmol/L (3.5-5.1); Sodium 133 mmol/L (136-145)
[2017-04-23 06:28] LABS: #Lymphocytes 1.1 thou/uL (1.20-3.40); #Monocytes 0.7 thou/uL (0.11-0.59); #Neutrophils 10.8 thou/uL (1.40-6.50); %Basophils 0.1 % (0.0-1.0); %Eosinophils 0.2 % (0.0-10.0); %Monocytes 5.8 % (0.0-10.0); Anisocytosis SLIGHT = 6-15 cells (100X) (0-5/hpf); Band 1 % (5-11); Hemoglobin 10.5 g/dL (12.0-16.0); Hypochromia SLIGHT = 6-15 cells (100X) (0-5/hpf); Lymphocytes 10 % (21-51); MDiff Complete? YES; Mean Corpuscular HGB CONC 26.7 g/dL (32.0-36.0); Mean Corpuscular Hemoglobin 21.8 pg (27.0-31.0); Mean Corpuscular Volume 81.4 fl (81.0-99.0); Mean Platelet Volume 8.3 fL (7.4-10.4); Monocytes 2 % (0-10); Neutrophil 87 % (42-75); Nucleated RBC 1 % (0); PLT Morphology Comment Appears Increased; Platelet Count 544 thou/uL (130-400); RBC Distribution Width 19.8 % (11.5-14.5); Red Blood Cell (RBC) Count 4.82 mill/uL (4.20-5.40); White Blood Cell (WBC) Count 12.7 thou/uL (4.8-10.8)
[2017-04-23] MEDS ORDERED: hydrALAZINE 20 MG/ML VIAL SLOW IVP PRN (07:27)
[2017-04-23] MEDS ORDERED: Losartan 25 MG TAB PO SCH (09:00)
--- NOTE | 2017-04-23 09:00 | PRG ---
DATE OF SERVICE: 04/23/2017 SUBJECTIVE: Ms. Frias is a 67-year-old black female with ESRD and was admitted for an open wound of the left knee. She underwent a left AKA amputation. She is doing well. At the dialysis I was eval uating this patient. We attempted to initiate dialysis, but the access was nonfunctional. For this reason, I have made arrangements for an AV fistulogram to be done this morning. No other complaints. PHYSICAL EXAMINATION: VITAL SIGNS: Blood pressure is 162/71, heart rate 72, respiratory rate 12, temperature 98.2, pulse o x 95%. GENERAL: Sleepy, but arousable, not in distress. SKIN: Adequate turgor. HEENT: She has pinkish conjunctivae, anicteric sclerae. NECK: No neck mass, no carotid bruits, no JVD. CHEST: No deformities. LUNGS: Clear breath sounds. No wheezing, no crackles. HEART: Normal sinus rhythm. No murmur, no gallops or rubs. ABDOMEN: Globular, soft, nontender, no masses. EXTREMITIES: Bilateral AKA. MEDICATIONS: 04/23/2017 - Reviewed. LABORATORY: 04/23/2017 - White count 12.7, hemoglobin 10.5. Sodium 133, potassium 5.3, chloride 96, carbon dioxide 27, BUN 58, creatinine 5.77, glucose 116, calcium 9.6. ASSESSMENT AND PLAN: 1. End-stage renal disease, nonfunctioning AV graft/fistula. We will be ordering an AV fistulogram and initiate dialysis once access is available. 2. Mild hyperkalemia, will simply observe this. 3. Peripheral vascular disease - recently status post left vbwqi-rol-ckfr amputation. Surgery is anjel morton. Recheck base met and CBC in a.m.
[2017-04-23] MEDS: Calcium Acetate 667 MG CAP PO SCH ×3 (09:43→17:00)
[2017-04-23] MEDS: Cilostazol 100 MG TAB PO SCH ×2 (09:43→17:00)
[2017-04-23] MEDS: Nitrofurantoin Monohyd/M-Cryst 100 MG CAP PO SCH ×2 (09:44→20:30)
[2017-04-23] MEDS: hydrALAZINE 25 MG TAB PO SCH ×3 (09:44→20:30)
[2017-04-23] MEDS: Zinc Sulfate 220 MG CAP PO SCH (09:44)
[2017-04-23] MEDS: Carvedilol 25 MG TAB PO SCH (09:44)
[2017-04-23] MEDS: Famotidine 20 MG TAB PO SCH (09:44)
[2017-04-23] MEDS: Docusate 100 MG CAP PO SCH ×2 (09:44→20:30)
[2017-04-23] MEDS: Polyethylene Glycol 3350 17 GM Packet PO SCH (09:44)
[2017-04-23] MEDS: Azelastine 137 MCG/Spray 30 ML NS SCH ×2 (09:44→20:25)
[2017-04-23] MEDS: Multivit, Therapeutic 1 TAB PO SCH (09:44)
[2017-04-23] MEDS: Brimonidine Tartrate 0.2% Ophth Soln 5 ml Bottle EA EYE SCH (09:45)
[2017-04-23] MEDS: Pilocarpine 1% Ophth Drops 15 ML BOT EA EYE SCH ×3 (09:46→20:27)
[2017-04-23] MEDS: Brinzolamide 1% Ophth Soln 10 ml Bottle EA EYE SCH ×2 (09:46→20:27)
[2017-04-23] MEDS: Loteprednol Etabonate 0.5% Ophth Suspension 5 ml Bottle EA EYE SCH ×2 (09:46→20:26)
--- NOTE | 2017-04-23 10:03 | PRG ---
DATE OF SERVICE: 04/23/2017 This is a 30 minute initial hospital visit note in which 30 minutes were spent in review of the imagi ng, record, evaluation, examination of patient, and formulation of a plan. Greater than 50% of the t garland was spent in counseling. CHIEF COMPLAINT: Anterior inferior C5 fracture status post fall. HISTORY OF PRESENT ILLNESS: Ms. Frias is a 67-year-old woman. Dr. Russell had contacted me in [facility] that she had a fall on 04/20/2017. Craniocervical imaging is negative with exception of a small a nterior inferior osteophyte fracture. The patient is in a collar. I should note her imaging is at [facility]. PHYSICAL EXAMINATION: On exam, the patient has no focal neurologic deficits, follows commands. She has an above the knee amputation and appears to have visual loss as well. Her collar is well fittin g. IMPRESSION AND PLAN: We will plan to follow up with this patient with a repeat set of x-rays in 6 we eks. Should her imaging demonstrates stability in her cervical spine fracture we will consider taper ing out of the collar as a treatment duration is typically 6-12 weeks in a collar. DIAGNOSES: C5 fracture.
[2017-04-23] MEDS: Insulin Detemir 100 UNITS/ML 6 UNITS in Pre-Filled Syringe 1 EACH SC SCH ×2 (11:22→20:30)
[2017-04-23 15:18] VITALS: BMI 15.0
--- NOTE | 2017-04-23 17:39 | PRG ---
DATE OF SERVICE: 04/23/2017 SUBJECTIVE: Ms. Frias is doing well today. OBJECTIVE: VITAL SIGNS: Temperature 97.4 degrees, heart rate 76, blood pressure 169/74. GENERAL: She is undergoing dialysis using left thigh graft. LUNGS: Clear to auscultation. CARDIAC: Regular rate and rhythm without murmur or gallop. ABDOMEN: Soft, nontender. EXTREMITIES: Left above the knee amputation stump wound dressings well healed. LABORATORY DATA: Laboratories this morning, white count 12, hemoglobin 10.5, potassium 5.3. ASSESSMENT AND PLAN: One day status post left vvpnt-eew-kext amputation. The patient could be disch arged home tomorrow and I think this is preferable to going to a correction facility as there is nothing to be gained to the correction facility. The patient is blind, unable to transfer hers elf and it would be best living in her own environment at home. We would plan to view her wound alfie rrow, washing it daily with soap and water at home and apply antibiotic ointment and Telfa. She shou ld follow up in my office in 2 weeks. We will talk to her family about considering discharge home to [place].
--- NOTE | 2017-04-23 19:50 | PDOC.PN ---
- Subjective Encounter Start Date: 04/23/17 Encounter Start Time: 14:00 Patient seen and examined. No new complaints. No overnight events. Pain controlled. No fever/chills/CP. - Objective Resuscitation Status: Resuscitation Status DNR:Do Not Resuscitate MAR Reviewed: Yes Vital Signs & Weight: Vital Signs (12 hours) Temp Pulse Resp BP BP BP Pulse Ox 04/23/17 17:00 76 169/74 H 04/23/17 15:56 76 10 L 169/74 H 97 04/23/17 14:24 97.4 F L 77 16 127/55 L 96 04/23/17 09:45 98.2 F 72 12 04/23/17 09:44 72 162/71 H Weight Admit Weight 96 lb Weight 96 lb I&O: 04/22/17 04/23/17 04/24/17 06:59 06:59 06:59 Intake Total 620 780 Balance 620 780 Result Diagrams: 04/23/17 04:21 04/23/17 04:21 Additional Labs: Accuchecks 04/23/17 04/23/17 04/22/17 15:57 05:57 20:19 POC Glucose 102 104 188 H Phys Exam - Physical Examination Constitutional: NAD Respiratory: no wheezing, no rhonchi Cardiovascular: RRR, no rub Gastrointestinal: soft, non-tender, positive bowel sounds Neurological: moves all 4 limbs Dx/Plan - Plan IMPRESSION: 1. DM2 2. HTN 3. ESRD on HD/Hyperkalemia 4. Glaucoma 5. Severe PAD 6. GERD 7. CAD PLAN: * Cont Levemir with sliding scale * Cont post op care * Home meds restarted * Cont to monitor * Will follow. Thank you for this consultation. * DNR. Makes decisions with the help of family. Review of Systems - Review of Systems Respiratory: negative: Cough, Dry, Shortness of Breath, Hemoptysis, SOB with Excertion, Pleuritic Pain, Sputum, Wheezing Cardiovascular: negative: chest pain, palpitations, orthopnea, paroxysmal nocturnal dyspnea, edema, light headedness - Medications/Allergies Allergies/Adverse Reactions: Allergies Allergy/AdvReac Type Severity Reaction Status Date / Time Iodine and Iodide Containing Allergy Intermediate VOMITING, Verified 04/21/17 11 :03 Produc RASH shrimp Allergy Verified 04/21/17 11:03 Medications: Current Medications Acetaminophen (Tylenol) 1,000 mg PO Q6HR [facility] Last Admin: 04/23/17 17:00 Dose: 1,000 mg Aspirin (Aspirin Chewable) 81 mg PO DAILY [facility] Last Admin: 04/23/17 09:44 Dose: 81 mg Azelastine HCl (Azelastine) 0 ml NS BID [facility] Last Admin: 04/23/17 09:44 Dose: 1 spr Brimonidine Tartrate (Alphagan 0.2% Ophth Soln) 1 drop EA EYE DAILY [facility] Last Admin: 04/23/17 09:45 Dose: 1 drop Brinzolamide (Azopt 1% Ophth Soln) 1 drop EA EYE BID [facility] Last Admin: 04/23/17 09:46 Dose: 1 drop Calcium Acetate (Phoslo) 667 mg PO TID[facility] Last Admin: 04/23/17 17:00 Dose: 667 mg Carvedilol (Coreg) 25 mg PO DAILY [facility] Last Admin: 04/23/17 09:44 Dose: 25 mg Cilostazol (Pletal) 100 mg PO BID-AC [facility] Last Admin: 04/23/17 17:00 Dose: 100 mg Clonidine (Catapres) 0.1 mg PO BID PRN PRN Reason: SBP GREATER THAN 160 Dextrose/Water (Dextrose 50%) 25 gm SLOW IVP PRN PRN PRN Reason: Hypoglycemia Docusate Sodium (Colace) 100 mg PO BID [facility] Last Admin: 04/23/17 09:44 Dose: 100 mg Famotidine (Pepcid) 20 mg PO DAILY [facility] Last Admin: 04/23/17 09:44 Dose: 20 mg Glucagon (Glucagon) 1 mg IM PRN PRN PRN Reason: Hypoglycemia Hydralazine HCl (Apresoline) 10 mg SLOW IVP Q4H PRN PRN Reason: SBP > 170 or DBP > 100 Last Admin: 04/22/17 18:33 Dose: 10 mg Hydralazine HCl (Apresoline) 25 mg PO TID [facility] Last Admin: 04/23/17 17:00 Dose: 25 mg Hydralazine HCl (Apresoline) 10 mg SLOW IVP Q4H PRN PRN Reason: SBP Greater Than 180 Dextrose/Water (D5w) 1,000 mls @ 0 mls/hr IV .Q0M PRN; As Directed PRN Reason: Hypoglycemia Sodium Chloride (Normal Saline 0.9%) 1,000 mls @ 0 mls/hr IV .Q0M [facility] PRN Reason: KVO Last Admin: 04/23/17 03:52 Dose: 1,000 mls Insulin Detemir 6 units/ (Miscellaneous Medication) 0.06 mls @ 0 mls/hr SC BID [facility] Last Admin: 04/23/17 11:22 Dose: Not Given Insulin Human Lispro (Humalog) 0 units SC .MILD SLIDING SCALE PRN PRN Reason: Mild Correctional Scale Latanoprost (Xalatan 0.005% Ophth Soln) 1 drop EA EYE HS [facility] Last Admin: 04/22/17 20:55 Dose: Not Given Loteprednol Etabonate (Lotemax 0.5% Ophth Suspension) 1 drop EA EYE BID [facility] Last Admin: 04/23/17 09:46 Dose: 1 drop Morphine Sulfate (Morphine) 2 mg IVP Q2H PRN PRN Reason: Mild Pain (1-3) Multivitamins (Theragran) 1 tab PO DAILY [facility] Last Admin: 04/23/17 09:44 Dose: 1 tab Nitrofurantoin Macrocrystals (Macrobid) 100 mg PO BID [facility] Last Admin: 04/23/17 09:44 Dose: 100 mg Ondansetron HCl (Zofran Odt) 4 mg PO Q6H PRN PRN Reason: Nausea/Vomiting Ondansetron HCl (Zofran) 4 mg IVP Q6H PRN PRN Reason: Nausea Ondansetron HCl (Zofran Odt) 8 mg PO Q6HR [facility] Last Admin: 04/23/17 17:00 Dose: 8 mg Pantoprazole Sodium (Protonix) 40 mg PO DAILY [facility] Last Admin: 04/23/17 09:44 Dose: 40 mg Pilocarpine HCl (Isopto Carpine 1% Ophth Soln) 1 drop EA EYE TID [facility] Last Admin: 04/23/17 17:01 Dose: 1 drop Polyethylene Glycol (Miralax) 17 gm PO DAILY [facility] Last Admin: 04/23/17 09:44 Dose: 17 gm Sodium Chloride (Flush - Normal Saline) 10 ml IVF PRN PRN PRN Reason: Saline Flush Sodium Chloride (Flush - Normal Saline) 10 ml IVF PRN PRN PRN Reason: Saline Flush Tramadol HCl (Ultram) 50 mg PO Q6H PRN PRN Reason: Moderate Pain (4-6) Tramadol HCl (Ultram) 100 mg PO Q6H PRN PRN Reason: Severe Pain (7-10) Zinc Sulfate (Zinc Sulfate) 220 mg PO DAILY [facility] Last Admin: 04/23/17 09:44 Dose: 220 mg
[2017-04-23] MEDS: Latanoprost 0.005% Ophth Soln 2.5 ml Bottle EA EYE SCH (20:28)
[2017-04-23] MEDS ORDERED: Polyethylene Glycol 3350 17 GM Packet PO PRN (20:42)
[2017-04-23] MEDS: Senokot S 8.6-50 MG TAB PO SCH (20:52)
[2017-04-24] MEDS: traMADol HCl 50 MG TAB PO PRN ×2 (02:17→22:05)
[2017-04-24] MEDS: Acetaminophen 500 MG TAB PO SCH ×4 (05:07→23:35)
[2017-04-24] MEDS: Ondansetron ODT 8 MG TAB PO SCH ×4 (05:07→23:35)
[2017-04-24 06:11] LABS: Anion Gap 14 mmol/L (10-20); BUN (Urea Nitrogen) 30 mg/dL (9.8-20.1); Calc. Creatinine Clearance 9 mL/min (70-130); Carbon Dioxide 27 mmol/L (23-31); Chloride 95 mmol/L (98-107); Estimated GFR-MDRD 13; Glucose 99 mg/dL (80-115); Potassium 4.3 mmol/L (3.5-5.1); Sodium 132 mmol/L (136-145)
[2017-04-24 06:16] LABS: #Eosinphils 0.4 thou/uL (0.0-0.7); #Lymphocytes 1.1 thou/uL (1.20-3.40); #Monocytes 0.9 thou/uL (0.11-0.59); #Neutrophils 7.8 thou/uL (1.40-6.50); %Eosinophils 4.1 % (0.0-10.0); %Lymphocytes 11.2 % (21.0-51.0); %Monocytes 8.3 % (0.0-10.0); %Neutrophils 76.3 % (42.0-75.0); Hemoglobin 9.7 g/dL (12.0-16.0); Mean Corpuscular HGB CONC 27.7 g/dL (32.0-36.0); Mean Corpuscular Hemoglobin 22.2 pg (27.0-31.0); Mean Corpuscular Volume 80.4 fl (81.0-99.0); Mean Platelet Volume 6.9 fL (7.4-10.4); Platelet Count 560 thou/uL (130-400); RBC Distribution Width 19.5 % (11.5-14.5); Red Blood Cell (RBC) Count 4.34 mill/uL (4.20-5.40); White Blood Cell (WBC) Count 10.2 thou/uL (4.8-10.8)
--- NOTE | 2017-04-24 09:59 | PRG ---
DATE OF SERVICE: 04/24/2017 SUBJECTIVE: Ms. Frias is a 67-year-old black female with ESRD who was admitted for a left AKA. She underwent surgery the day before yesterday. When we attempted to dialyze her initially we were not able to successfully dialyze. However, we did review her previous and most recent AV graft and it wa s in the femoral groin. She underwent dialysis yesterday without any difficulty. I am currently hawk lyzing her on her on her regular Thursday, Thursday, Thursday schedule. I am at the bedside supervising her dialysis. No new complaints today, doing well. PHYSICAL EXAMINATION: VITAL SIGNS: Blood pressure 160/77, heart rate 79, respiratory rate 19, temperature 97.6, pulse ox 9 4%. GENERAL: Awake, alert, comfortable, not in distress. SKIN: Adequate turgor. HEENT: Slightly pale conjunctivae, anicteric sclerae. NECK: No neck mass, no carotid bruits, no JVD. CHEST: No deformities. LUNGS: Clear breath sounds. HEART: Normal sinus rhythm. No murmur, no gallops or rubs. ABDOMEN: Globular, soft, nontender, no masses. EXTREMITIES: No edema, no deformities. Status post bilateral leg amputation - recently status post left AKA. MEDICATIONS: 04/24/2017 - Reviewed. LABORATORY: 04/24/2017 - White count 10.2, hemoglobin 9.7, sodium 132, potassium 4.3, chloride 95, c arbon dioxide 27, BUN 30, creatinine 4.27, glucose 99, calcium 9. ASSESSMENT AND PLAN: 1. End-stage renal disease. We will do a 2-hour hemodialysis with this patient. Again, fluid remov al only as tolerated. Using no heparin. 2. Mild hyperkalemia, resolved with dialysis yesterday. 3. Peripheral vascular disease - recently status post ddweq-zct-wiyb amputation. Overall I agree with current management.
[2017-04-24] MEDS: Pilocarpine 1% Ophth Drops 15 ML BOT EA EYE SCH ×3 (10:24→21:54)
[2017-04-24] MEDS: Azelastine 137 MCG/Spray 30 ML NS SCH ×2 (10:24→21:55)
[2017-04-24] MEDS: Brinzolamide 1% Ophth Soln 10 ml Bottle EA EYE SCH ×2 (10:24→21:55)
[2017-04-24] MEDS: Loteprednol Etabonate 0.5% Ophth Suspension 5 ml Bottle EA EYE SCH ×2 (10:24→21:55)
[2017-04-24] MEDS: Brimonidine Tartrate 0.2% Ophth Soln 5 ml Bottle EA EYE SCH (10:24)
[2017-04-24] MEDS: Insulin Detemir 100 UNITS/ML 6 UNITS in Pre-Filled Syringe 1 EACH SC SCH ×2 (10:25→21:53)
[2017-04-24] MEDS: Cilostazol 100 MG TAB PO SCH ×2 (10:26→15:32)
[2017-04-24] MEDS: Famotidine 20 MG TAB PO SCH (10:26)
[2017-04-24] MEDS: Zinc Sulfate 220 MG CAP PO SCH (10:26)
[2017-04-24] MEDS: Calcium Acetate 667 MG CAP PO SCH ×3 (10:26→18:03)
[2017-04-24] MEDS: Senokot S 8.6-50 MG TAB PO SCH ×2 (10:26→21:49)
[2017-04-24] MEDS: Polyethylene Glycol 3350 17 GM Packet PO SCH (10:26)
[2017-04-24] MEDS: Multivit, Therapeutic 1 TAB PO SCH (10:26)
[2017-04-24] MEDS: Carvedilol 25 MG TAB PO SCH (10:27)
[2017-04-24] MEDS: Nitrofurantoin Monohyd/M-Cryst 100 MG CAP PO SCH ×2 (10:27→21:50)
[2017-04-24] MEDS: hydrALAZINE 25 MG TAB PO SCH ×3 (10:27→21:49)
--- NOTE | 2017-04-24 10:56 | PRG ---
DATE OF SERVICE: 04/24/2017 Ms. Frias is doing well today. She has undergone dialysis which went well. They are using her left thigh dialysis graft. PHYSICAL EXAMINATION: VITAL SIGNS: Temperature 97.6 degrees, 79, 160/77. LUNGS: Clear to auscultation. CARDIAC: Regular rate and rhythm without murmur or gallop. ABDOMEN: Soft, nontender. EXTREMITIES: Left AKA stump looks good. Dressing is removed today. They will begin washing it roseanna y with soap and water, apply antibiotic ointment and Telfa. The patient's family wanted her to go to [facility], but unfortunately that cannot occur until next week. With her visual impairment and her lack of mobility, I do not th ink there is much to offer. However, the family insists that she goes to this facility and not home. The plan is to discharge her to one of those facilities when a bed is available. Overall, she is doi ng well. She is ready for discharge anytime today or the weekend. She will follow up in my office i n 2 weeks for staple removal. This hospitalization she was made a DNR per the patient and her family 's request.
[2017-04-24] MEDS ORDERED: Triple Antibiotic Oint 1 GM Packet TOP SCH (12:00)
--- NOTE | 2017-04-24 18:56 | PDOC.PN ---
- Subjective Encounter Start Date: 04/24/17 Encounter Start Time: 09:00 Patient seen and examined. No new complaints. No overnight events - Objective Resuscitation Status: Resuscitation Status DNR:Do Not Resuscitate MAR Reviewed: Yes Vital Signs & Weight: Vital Signs (12 hours) Temp Pulse Resp BP BP BP Pulse Ox 04/24/17 15:32 72 162/64 H 04/24/17 15:30 98.6 F 72 12 162/64 H 98 04/24/17 12:00 96.8 F L 78 24 H 169/82 H 96 04/24/17 10:27 72 183/85 H 04/24/17 10:05 96.8 F L 78 24 H 183/85 H 95 Weight Admit Weight 96 lb Weight 96 lb I&O: 04/23/17 04/24/17 04/25/17 06:59 06:59 06:59 Intake Total 620 780 Balance 620 780 Result Diagrams: 04/24/17 05:31 04/24/17 05:31 Additional Labs: Accuchecks 04/24/17 04/23/17 05:39 19:52 POC Glucose 94 133 H Phys Exam - Physical Examination Constitutional: NAD Respiratory: no wheezing, no rhonchi Cardiovascular: RRR, no rub Gastrointestinal: soft, non-tender, positive bowel sounds Neurological: moves all 4 limbs Dx/Plan - Plan PT/OT IMPRESSION: 1. HTN 2. DM2 3. ESRD on HD/Hyperkalemia 4. Glaucoma 5. Severe PAD 6. GERD 7. CAD PLAN: * Cont Levemir with sliding scale * Cont current meds as below * Cont to monitor * Will follow. Review of Systems - Review of Systems Respiratory: negative: Cough, Dry, Shortness of Breath, Hemoptysis, SOB with Excertion, Pleuritic Pain, Sputum, Wheezing Cardiovascular: negative: chest pain, palpitations, orthopnea, paroxysmal nocturnal dyspnea, edema, light headedness Gastrointestinal: negative: Nausea, Vomiting, Abdominal Pain, Diarrhea, Constipation, Melena, Hematochezia - Medications/Allergies Allergies/Adverse Reactions: Allergies Allergy/AdvReac Type Severity Reaction Status Date / Time Iodine and Iodide Containing Allergy Intermediate VOMITING, Verified 04/21/17 11 :03 Produc RASH shrimp Allergy Verified 04/21/17 11:03 Medications: Current Medications Acetaminophen (Tylenol) 1,000 mg PO Q6HR [facility] Last Admin: 03/02/18 18:03 Dose: 1,000 mg Aspirin (Aspirin Chewable) 81 mg PO DAILY [facility] Last Admin: 04/24/17 10:26 Dose: 81 mg Azelastine HCl (Azelastine) 0 ml NS BID [facility] Last Admin: 04/24/17 10:24 Dose: 1 spr Brimonidine Tartrate (Alphagan 0.2% Ophth Soln) 1 drop EA EYE DAILY [facility] Last Admin: 04/24/17 10:24 Dose: 1 drop Brinzolamide (Azopt 1% Ophth Soln) 1 drop EA EYE BID [facility] Last Admin: 04/24/17 10:24 Dose: 1 drop Calcium Acetate (Phoslo) 667 mg PO TID-[facility] Last Admin: 04/24/17 18:03 Dose: 667 mg Carvedilol (Coreg) 25 mg PO DAILY [facility] Last Admin: 04/24/17 10:27 Dose: 25 mg Cilostazol (Pletal) 100 mg PO BID-AC [facility] Last Admin: 04/24/17 15:32 Dose: 100 mg Clonidine (Catapres) 0.1 mg PO BID PRN PRN Reason: SBP GREATER THAN 160 Dextrose/Water (Dextrose 50%) 25 gm SLOW IVP PRN PRN PRN Reason: Hypoglycemia Famotidine (Pepcid) 20 mg PO DAILY [facility] Last Admin: 04/24/17 10:26 Dose: 20 mg Glucagon (Glucagon) 1 mg IM PRN PRN PRN Reason: Hypoglycemia Hydralazine HCl (Apresoline) 10 mg SLOW IVP Q4H PRN PRN Reason: SBP > 170 or DBP > 100 Last Admin: 04/22/17 18:33 Dose: 10 mg Hydralazine HCl (Apresoline) 25 mg PO TID [facility] Last Admin: 04/24/17 15:32 Dose: 25 mg Hydralazine HCl (Apresoline) 10 mg SLOW IVP Q4H PRN PRN Reason: SBP Greater Than 180 Dextrose/Water (D5w) 1,000 mls @ 0 mls/hr IV .Q0M PRN; As Directed PRN Reason: Hypoglycemia Sodium Chloride (Normal Saline 0.9%) 1,000 mls @ 0 mls/hr IV .Q0M [facility] PRN Reason: KVO Last Admin: 04/23/17 03:52 Dose: 1,000 mls Insulin Detemir 6 units/ (Miscellaneous Medication) 0.06 mls @ 0 mls/hr SC BID [facility] Last Admin: 04/24/17 10:25 Dose: 0.06 mls Insulin Human Lispro (Humalog) 0 units SC .MILD SLIDING SCALE PRN PRN Reason: Mild Correctional Scale Latanoprost (Xalatan 0.005% Ophth Soln) 1 drop EA EYE HS [facility] Last Admin: 04/23/17 20:28 Dose: Not Given Loteprednol Etabonate (Lotemax 0.5% Ophth Suspension) 1 drop EA EYE BID [facility] Last Admin: 04/24/17 10:24 Dose: 1 drop Morphine Sulfate (Morphine) 2 mg IVP Q2H PRN PRN Reason: Mild Pain (1-3) Multivitamins (Theragran) 1 tab PO DAILY [facility] Last Admin: 04/24/17 10:26 Dose: 1 tab Neomycin/Polymyxin/Bacitracin (Triple Antibiotic) 1 gm TOP QAM [facility] Nitrofurantoin Macrocrystals (Macrobid) 100 mg PO BID [facility] Last Admin: 04/24/17 10:27 Dose: 100 mg Ondansetron HCl (Zofran Odt) 4 mg PO Q6H PRN PRN Reason: Nausea/Vomiting Ondansetron HCl (Zofran) 4 mg IVP Q6H PRN PRN Reason: Nausea Ondansetron HCl (Zofran Odt) 8 mg PO Q6HR [facility] Last Admin: 04/24/17 18:03 Dose: 8 mg Pantoprazole Sodium (Protonix) 40 mg PO DAILY [facility] Last Admin: 04/24/17 10:27 Dose: 40 mg Pilocarpine HCl (Isopto Carpine 1% Ophth Soln) 1 drop EA EYE TID [facility] Last Admin: 04/24/17 15:33 Dose: 1 drop Polyethylene Glycol (Miralax) 17 gm PO DAILY [facility] Last Admin: 04/24/17 10:26 Dose: 17 gm Polyethylene Glycol (Miralax) 17 gm PO DAILY PRN PRN Reason: Constipation Senna/Docusate Sodium (Senokot S) 1 tab PO BID [facility] Last Admin: 04/24/17 10:26 Dose: 1 tab Sodium Chloride (Flush - Normal Saline) 10 ml IVF PRN PRN PRN Reason: Saline Flush Last Admin: 04/24/17 10:26 Dose: 10 ml Sodium Chloride (Flush - Normal Saline) 10 ml IVF PRN PRN PRN Reason: Saline Flush Tramadol HCl (Ultram) 50 mg PO Q6H PRN PRN Reason: Moderate Pain (4-6) Tramadol HCl (Ultram) 100 mg PO Q6H PRN PRN Reason: Severe Pain (7-10) Last Admin: 04/24/17 02:17 Dose: 100 mg Zinc Sulfate (Zinc Sulfate) 220 mg PO DAILY [facility] Last Admin: 04/24/17 10:26 Dose: 220 mg
[2017-04-24] MEDS: Latanoprost 0.005% Ophth Soln 2.5 ml Bottle EA EYE SCH (22:00)
[2017-04-25 06:06] LABS: #Eosinphils 0.7 thou/uL (0.0-0.7); #Lymphocytes 1.6 thou/uL (1.20-3.40); #Monocytes 0.8 thou/uL (0.11-0.59); #Neutrophils 6.5 thou/uL (1.40-6.50); %Basophils 0.2 % (0.0-1.0); %Eosinophils 7.6 % (0.0-10.0); %Lymphocytes 16.6 % (21.0-51.0); %Monocytes 8.1 % (0.0-10.0); %Neutrophils 67.4 % (42.0-75.0); Hemoglobin 9.8 g/dL (12.0-16.0); Mean Corpuscular HGB CONC 27.7 g/dL (32.0-36.0); Mean Corpuscular Hemoglobin 22.3 pg (27.0-31.0); Mean Corpuscular Volume 80.5 fl (81.0-99.0); Mean Platelet Volume 6.9 fL (7.4-10.4); Platelet Count 572 thou/uL (130-400); RBC Distribution Width 19.6 % (11.5-14.5); Red Blood Cell (RBC) Count 4.41 mill/uL (4.20-5.40); White Blood Cell (WBC) Count 9.7 thou/uL (4.8-10.8)
[2017-04-25] MEDS: Ondansetron ODT 8 MG TAB PO SCH ×3 (06:39→18:13)
[2017-04-25] MEDS: Cilostazol 100 MG TAB PO SCH ×2 (06:39→16:09)
[2017-04-25] MEDS: Acetaminophen 500 MG TAB PO SCH ×3 (06:40→18:14)
[2017-04-25] MEDS: Calcium Acetate 667 MG CAP PO SCH ×3 (09:46→18:14)
[2017-04-25] MEDS: hydrALAZINE 25 MG TAB PO SCH ×3 (09:46→21:25)
[2017-04-25] MEDS: Zinc Sulfate 220 MG CAP PO SCH (09:46)
[2017-04-25] MEDS: Senokot S 8.6-50 MG TAB PO SCH ×2 (09:46→21:23)
[2017-04-25] MEDS: Nitrofurantoin Monohyd/M-Cryst 100 MG CAP PO SCH ×2 (09:47→21:23)
[2017-04-25] MEDS: Multivit, Therapeutic 1 TAB PO SCH (09:47)
[2017-04-25] MEDS: Polyethylene Glycol 3350 17 GM Packet PO SCH (09:47)
[2017-04-25] MEDS: Carvedilol 25 MG TAB PO SCH (09:47)
[2017-04-25] MEDS: Famotidine 20 MG TAB PO SCH (09:47)
[2017-04-25] MEDS: Insulin Detemir 100 UNITS/ML 6 UNITS in Pre-Filled Syringe 1 EACH SC SCH (09:48)
[2017-04-25] MEDS: Triple Antibiotic Oint 1 GM Packet TOP SCH (09:50)
[2017-04-25] MEDS: Brinzolamide 1% Ophth Soln 10 ml Bottle EA EYE SCH ×2 (09:56→21:23)
[2017-04-25] MEDS: Azelastine 137 MCG/Spray 30 ML NS SCH ×2 (09:59→21:21)
[2017-04-25] MEDS: Brimonidine Tartrate 0.2% Ophth Soln 5 ml Bottle EA EYE SCH (10:01)
[2017-04-25] MEDS: Loteprednol Etabonate 0.5% Ophth Suspension 5 ml Bottle EA EYE SCH ×2 (10:05→21:28)
[2017-04-25] MEDS: Pilocarpine 1% Ophth Drops 15 ML BOT EA EYE SCH ×3 (10:06→21:27)
--- NOTE | 2017-04-25 10:43 | PRG ---
DATE OF SERVICE: 04/25/2017 Ms. Frias is feeling fine today. She denies any pain or problems. She has been afebrile. Her david l signs are okay except for a mildly elevated blood pressure. Electrolytes are unremarkable. Her wo und is dressed and she requested that I am not remove the dressing today. ASSESSMENT: Status post left above the knee amputation, doing well, awaiting usp placement. No new recommendations.
--- NOTE | 2017-04-25 18:59 | PDOC.PN ---
- Subjective Encounter Start Date: 04/25/17 Encounter Start Time: 10:00 Patient seen and examined. No new complaints. No overnight events - Objective Resuscitation Status: Resuscitation Status DNR:Do Not Resuscitate MAR Reviewed: Yes Vital Signs & Weight: Vital Signs (12 hours) Temp Pulse Resp BP BP Pulse Ox 04/25/17 16:08 80 170/78 H 04/25/17 15:54 97.7 F 78 14 164/78 H 93 L 04/25/17 10:58 98.5 F 83 12 127/50 L 93 L 04/25/17 09:46 80 163/73 H 04/25/17 08:00 98.5 F 83 12 04/25/17 07:56 98.3 F 80 18 163/73 H 97 Weight Admit Weight 96 lb Weight 96 lb I&O: 04/24/17 04/25/17 04/26/17 06:59 06:59 06:59 Intake Total 780 800 960 Balance 780 800 960 Result Diagrams: 04/25/17 04:56 04/24/17 05:31 Additional Labs: Accuchecks 04/25/17 04/25/17 04/25/17 15:57 11:01 04:02 POC Glucose 73 118 H 96 04/24/17 04/24/17 21:54 15:35 POC Glucose 113 H 130 H Phys Exam - Physical Examination Constitutional: NAD Respiratory: no wheezing, no rhonchi Cardiovascular: RRR, no rub Gastrointestinal: soft, non-tender, positive bowel sounds Dx/Plan - Plan IMPRESSION: 1. HTN 2. DM2 3. ESRD on HD/Hyperkalemia 4. Glaucoma 5. Severe PAD 6. GERD 7. CAD PLAN: * Hold Levemir * Cont sliding scale * Cont current meds as below * Cont to monitor * Will follow. * Await placement Review of Systems - Review of Systems Respiratory: negative: Cough, Dry, Shortness of Breath, Hemoptysis, SOB with Excertion, Pleuritic Pain, Sputum, Wheezing Cardiovascular: negative: chest pain, palpitations, orthopnea, paroxysmal nocturnal dyspnea, edema, light headedness - Medications/Allergies Allergies/Adverse Reactions: Allergies Allergy/AdvReac Type Severity Reaction Status Date / Time Iodine and Iodide Containing Allergy Intermediate VOMITING, Verified 04/21/17 11 :03 Produc RASH shrimp Allergy Verified 04/21/17 11:03 Medications: Current Medications Acetaminophen (Tylenol) 1,000 mg PO Q6HR [facility] Last Admin: 04/25/17 18:14 Dose: 1,000 mg Aspirin (Aspirin Chewable) 81 mg PO DAILY [facility] Last Admin: 04/25/17 09:46 Dose: 81 mg Azelastine HCl (Azelastine) 0 ml NS BID [facility] Last Admin: 04/25/17 09:59 Dose: 1 spr Brimonidine Tartrate (Alphagan 0.2% Ophth Soln) 1 drop EA EYE DAILY [facility] Last Admin: 04/25/17 10:01 Dose: 1 drop Brinzolamide (Azopt 1% Ophth Soln) 1 drop EA EYE BID [facility] Last Admin: 04/25/17 09:56 Dose: 1 drop Calcium Acetate (Phoslo) 667 mg PO TID-[facility] Last Admin: 04/25/17 18:14 Dose: 667 mg Carvedilol (Coreg) 25 mg PO DAILY [facility] Last Admin: 04/25/17 09:47 Dose: 25 mg Cilostazol (Pletal) 100 mg PO BID-AC [facility] Last Admin: 04/25/17 16:09 Dose: 100 mg Clonidine (Catapres) 0.1 mg PO BID PRN PRN Reason: SBP GREATER THAN 160 Dextrose/Water (Dextrose 50%) 25 gm SLOW IVP PRN PRN PRN Reason: Hypoglycemia Famotidine (Pepcid) 20 mg PO DAILY [facility] Last Admin: 04/25/17 09:47 Dose: 20 mg Glucagon (Glucagon) 1 mg IM PRN PRN PRN Reason: Hypoglycemia Hydralazine HCl (Apresoline) 10 mg SLOW IVP Q4H PRN PRN Reason: SBP > 170 or DBP > 100 Last Admin: 04/22/17 18:33 Dose: 10 mg Hydralazine HCl (Apresoline) 25 mg PO TID [facility] Last Admin: 04/25/17 16:08 Dose: 25 mg Dextrose/Water (D5w) 1,000 mls @ 0 mls/hr IV .Q0M PRN; As Directed PRN Reason: Hypoglycemia Sodium Chloride (Normal Saline 0.9%) 1,000 mls @ 0 mls/hr IV .Q0M [facility] PRN Reason: KVO Last Admin: 04/23/17 03:52 Dose: 1,000 mls Insulin Human Lispro (Humalog) 0 units SC .MILD SLIDING SCALE PRN PRN Reason: Mild Correctional Scale Latanoprost (Xalatan 0.005% Ophth Soln) 1 drop EA EYE HS [facility] Last Admin: 04/24/17 22:00 Dose: Not Given Loteprednol Etabonate (Lotemax 0.5% Ophth Suspension) 1 drop EA EYE BID [facility] Last Admin: 04/25/17 10:05 Dose: 1 drop Morphine Sulfate (Morphine) 2 mg IVP Q2H PRN PRN Reason: Mild Pain (1-3) Multivitamins (Theragran) 1 tab PO DAILY [facility] Last Admin: 04/25/17 09:47 Dose: 1 tab Neomycin/Polymyxin/Bacitracin (Triple Antibiotic) 1 gm TOP QAM [facility] Last Admin: 04/25/17 09:50 Dose: 1 gm Nitrofurantoin Macrocrystals (Macrobid) 100 mg PO BID [facility] Last Admin: 04/25/17 09:47 Dose: 100 mg Ondansetron HCl (Zofran Odt) 4 mg PO Q6H PRN PRN Reason: Nausea/Vomiting Ondansetron HCl (Zofran) 4 mg IVP Q6H PRN PRN Reason: Nausea Ondansetron HCl (Zofran Odt) 8 mg PO Q6HR [facility] Last Admin: 04/25/17 18:13 Dose: 8 mg Pantoprazole Sodium (Protonix) 40 mg PO DAILY [facility] Last Admin: 04/25/17 09:47 Dose: 40 mg Pilocarpine HCl (Isopto Carpine 1% Ophth Soln) 1 drop EA EYE TID [facility] Last Admin: 04/25/17 16:10 Dose: 1 drop Polyethylene Glycol (Miralax) 17 gm PO DAILY [facility] Last Admin: 04/25/17 09:47 Dose: 17 gm Polyethylene Glycol (Miralax) 17 gm PO DAILY PRN PRN Reason: Constipation Senna/Docusate Sodium (Senokot S) 1 tab PO BID [facility] Last Admin: 04/25/17 09:46 Dose: 1 tab Sodium Chloride (Flush - Normal Saline) 10 ml IVF PRN PRN PRN Reason: Saline Flush Last Admin: 04/24/17 10:26 Dose: 10 ml Sodium Chloride (Flush - Normal Saline) 10 ml IVF PRN PRN PRN Reason: Saline Flush Tramadol HCl (Ultram) 50 mg PO Q6H PRN PRN Reason: Moderate Pain (4-6) Tramadol HCl (Ultram) 100 mg PO Q6H PRN PRN Reason: Severe Pain (7-10) Last Admin: 04/24/17 22:05 Dose: 100 mg Zinc Sulfate (Zinc Sulfate) 220 mg PO DAILY [facility] Last Admin: 04/25/17 09:46 Dose: 220 mg
[2017-04-25] MEDS: Latanoprost 0.005% Ophth Soln 2.5 ml Bottle EA EYE SCH (21:29)
[2017-04-26] MEDS: Ondansetron ODT 8 MG TAB PO SCH ×4 (01:00→17:05)
[2017-04-26] MEDS: Acetaminophen 500 MG TAB PO SCH ×4 (01:00→17:05)
[2017-04-26] MEDS: Cilostazol 100 MG TAB PO SCH ×2 (06:32→17:05)
[2017-04-26] MEDS: Brinzolamide 1% Ophth Soln 10 ml Bottle EA EYE SCH ×2 (08:46→21:25)
[2017-04-26] MEDS: Loteprednol Etabonate 0.5% Ophth Suspension 5 ml Bottle EA EYE SCH ×2 (08:46→21:26)
[2017-04-26] MEDS: Pilocarpine 1% Ophth Drops 15 ML BOT EA EYE SCH ×3 (08:48→21:27)
[2017-04-26] MEDS: Azelastine 137 MCG/Spray 30 ML NS SCH ×2 (08:49→21:24)
[2017-04-26] MEDS: Polyethylene Glycol 3350 17 GM Packet PO SCH (08:49)
[2017-04-26] MEDS: Brimonidine Tartrate 0.2% Ophth Soln 5 ml Bottle EA EYE SCH (08:50)
[2017-04-26] MEDS: Zinc Sulfate 220 MG CAP PO SCH (08:50)
[2017-04-26] MEDS: Carvedilol 25 MG TAB PO SCH (08:50)
[2017-04-26] MEDS: Calcium Acetate 667 MG CAP PO SCH ×3 (08:50→17:05)
[2017-04-26] MEDS: Triple Antibiotic Oint 1 GM Packet TOP SCH (08:50)
[2017-04-26] MEDS: Multivit, Therapeutic 1 TAB PO SCH (08:50)
[2017-04-26] MEDS: hydrALAZINE 25 MG TAB PO SCH ×3 (08:50→21:23)
[2017-04-26] MEDS: Senokot S 8.6-50 MG TAB PO SCH ×2 (08:50→21:24)
[2017-04-26] MEDS: Famotidine 20 MG TAB PO SCH (08:50)
[2017-04-26] MEDS: Nitrofurantoin Monohyd/M-Cryst 100 MG CAP PO SCH ×2 (08:50→21:20)
--- NOTE | 2017-04-26 12:45 | PDOC.PN ---
- Subjective Encounter Start Date: 04/26/17 Encounter Start Time: 12:43 Subjective: feels good ,still no appetite. -: some pain in operative site - Objective Resuscitation Status: Resuscitation Status DNR:Do Not Resuscitate MAR Reviewed: Yes Vital Signs & Weight: Vital Signs (12 hours) Temp Pulse Resp BP Pulse Ox 04/26/17 11:09 98.0 F 81 34 H 104/68 91 L 04/26/17 11:04 98.2 F 85 12 139/60 98 04/26/17 08:00 97.3 F L 86 12 04/26/17 07:20 97.3 F L 86 12 143/66 H 97 04/26/17 04:25 98.1 F 81 18 149/72 H 95 Weight Admit Weight 96 lb Weight 96 lb I&O: 04/25/17 04/26/17 04/27/17 06:59 06:59 06:59 Intake Total 800 1440 Balance 800 1440 Result Diagrams: 04/25/17 04:56 04/24/17 05:31 Additional Labs: Accuchecks 04/26/17 04/26/17 04/25/17 11:21 05:55 20:14 POC Glucose 117 H 78 155 H 04/25/17 15:57 POC Glucose 73 Phys Exam - Physical Examination Constitutional: NAD HEENT: PERRLA, moist MMs, sclera anicteric, oral pharynx no lesions Neck: no nodes, no JVD, supple, full ROM Respiratory: no wheezing, no rales, no rhonchi, clear to auscultation bilateral Cardiovascular: RRR, no significant murmur Gastrointestinal: soft, non-tender, no distention, positive bowel sounds Musculoskeletal: no edema, pulses present Neurological: non-focal, normal sensation, moves all 4 limbs stump looks clean at post-op site Psychiatric: normal affect, A&O x 3 Skin: no rash Dx/Plan (1) DM type 2 (diabetes mellitus, type 2) Status: Chronic Qualifiers: Diabetes mellitus complication status: with kidney complications 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 Chronic kidney disease stage: on chronic dialysis (2) Status post above knee amputation of left lower extremity Code(s): Z89.612 - ACQUIRED ABSENCE OF LEFT LEG ABOVE KNEE Status: Acute Comment: for stump infection (3) Anemia of renal disease Code(s): D63.1 - ANEMIA IN CHRONIC KIDNEY DISEASE Status: Chronic (4) ESRD (end stage renal disease) on dialysis Code(s): N18.6 - END STAGE RENAL DISEASE; Z99.2 - DEPENDENCE ON RENAL DIALYSIS Status: Chronic Comment: on HD (5) HTN (hypertension) Code(s): I10 - ESSENTIAL (PRIMARY) HYPERTENSION Status: Chronic Qualifiers: Hypertension type: essential hypertension Qualified Code(s): I10 - Essential (primary) hypertension (6) History of right below knee amputation Code(s): Z89.511 - ACQUIRED ABSENCE OF RIGHT LEG BELOW KNEE Status: Chronic (7) PVD (peripheral vascular disease) Code(s): I73.9 - PERIPHERAL VASCULAR DISEASE, UNSPECIFIED Status: Chronic Comment: h/o right BKA and now with left BKA - Plan continue antibiotics, PT/OT, 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 pt encouraged for Po intake.add Glucerna.ISS. -: levemir stopped.monitor. -: cont rest of the meds as below. Hemodynamically stable. -: Bp controlled. am labs. * . Review of Systems - Review of Systems Constitutional: negative: fever, chills, sweats, weakness, malaise, other ENT: negative: Ear Pain, Ear Discharge, Nose Pain, Nose Discharge, Nose Congestion, Mouth Pain, Mouth Swelling, Throat Pain, Throat Swelling, Other Respiratory: negative: Cough, Dry, Shortness of Breath, Hemoptysis, SOB with Excertion, Pleuritic Pain, Sputum, Wheezing Cardiovascular: negative: chest pain, palpitations, orthopnea, paroxysmal nocturnal dyspnea, edema, light headedness, other Gastrointestinal: negative: Nausea, Vomiting, Abdominal Pain, Diarrhea, Constipation, Melena, Hematochezia, Other Genitourinary: negative: Dysuria, Frequency, Incontinence, Hematuria, Retention , Other Musculoskeletal: negative: Neck Pain, Shoulder Pain, Arm Pain, Back Pain, Hand Pain, Leg Pain, Foot Pain, Other Neurological: negative: Weakness, Numbness, Incoordination, Change in Speech, Confusion, Seizures, Other - Medications/Allergies Allergies/Adverse Reactions: Allergies Allergy/AdvReac Type Severity Reaction Status Date / Time Iodine and Iodide Containing Allergy Intermediate VOMITING, Verified 04/21/17 11 :03 Produc RASH shrimp Allergy Verified 04/21/17 11:03 Medications: Current Medications Acetaminophen (Tylenol) 1,000 mg PO Q6HR [facility] Last Admin: 04/26/17 06:32 Dose: 1,000 mg Aspirin (Aspirin Chewable) 81 mg PO DAILY [facility] Last Admin: 04/26/17 08:50 Dose: 81 mg Azelastine HCl (Azelastine) 0 ml NS BID [facility] Last Admin: 04/26/17 08:49 Dose: 1 spr Brimonidine Tartrate (Alphagan 0.2% Ophth Soln) 1 drop EA EYE DAILY [facility] Last Admin: 04/26/17 08:50 Dose: 1 drop Brinzolamide (Azopt 1% Ophth Soln) 1 drop EA EYE BID [facility] Last Admin: 04/26/17 08:46 Dose: 1 drop Calcium Acetate (Phoslo) 667 mg PO TID-[facility] Last Admin: 04/26/17 08:50 Dose: 667 mg Carvedilol (Coreg) 25 mg PO DAILY [facility] Last Admin: 04/26/17 08:50 Dose: 25 mg Cilostazol (Pletal) 100 mg PO BID-AC [facility] Last Admin: 04/26/17 06:32 Dose: 100 mg Clonidine (Catapres) 0.1 mg PO BID PRN PRN Reason: SBP GREATER THAN 160 Dextrose/Water (Dextrose 50%) 25 gm SLOW IVP PRN PRN PRN Reason: Hypoglycemia Famotidine (Pepcid) 20 mg PO DAILY [facility] Last Admin: 04/26/17 08:50 Dose: 20 mg Glucagon (Glucagon) 1 mg IM PRN PRN PRN Reason: Hypoglycemia Hydralazine HCl (Apresoline) 10 mg SLOW IVP Q4H PRN PRN Reason: SBP > 170 or DBP > 100 Last Admin: 04/22/17 18:33 Dose: 10 mg Hydralazine HCl (Apresoline) 25 mg PO TID [facility] Last Admin: 04/26/17 08:50 Dose: 25 mg Dextrose/Water (D5w) 1,000 mls @ 0 mls/hr IV .Q0M PRN; As Directed PRN Reason: Hypoglycemia Sodium Chloride (Normal Saline 0.9%) 1,000 mls @ 0 mls/hr IV .Q0M [facility] PRN Reason: KVO Last Admin: 04/23/17 03:52 Dose: 1,000 mls Insulin Human Lispro (Humalog) 0 units SC .MILD SLIDING SCALE PRN PRN Reason: Mild Correctional Scale Last Admin: 04/25/17 21:55 Dose: 2 unit Latanoprost (Xalatan 0.005% Ophth Soln) 1 drop EA EYE HS [facility] Last Admin: 04/25/17 21:29 Dose: Not Given Loteprednol Etabonate (Lotemax 0.5% Ophth Suspension) 1 drop EA EYE BID [facility] Last Admin: 04/26/17 08:46 Dose: 1 drop Morphine Sulfate (Morphine) 2 mg IVP Q2H PRN PRN Reason: Mild Pain (1-3) Multivitamins (Theragran) 1 tab PO DAILY [facility] Last Admin: 04/26/17 08:50 Dose: 1 tab Neomycin/Polymyxin/Bacitracin (Triple Antibiotic) 1 gm TOP QAM [facility] Last Admin: 04/26/17 08:50 Dose: 1 gm Nitrofurantoin Macrocrystals (Macrobid) 100 mg PO BID [facility] Last Admin: 04/26/17 08:50 Dose: 100 mg Ondansetron HCl (Zofran Odt) 4 mg PO Q6H PRN PRN Reason: Nausea/Vomiting Ondansetron HCl (Zofran) 4 mg IVP Q6H PRN PRN Reason: Nausea Ondansetron HCl (Zofran Odt) 8 mg PO Q6HR [facility] Last Admin: 04/26/17 06:32 Dose: 8 mg Pantoprazole Sodium (Protonix) 40 mg PO DAILY [facility] Last Admin: 04/26/17 08:50 Dose: 40 mg Pilocarpine HCl (Isopto Carpine 1% Ophth Soln) 1 drop EA EYE TID [facility] Last Admin: 04/26/17 08:48 Dose: 1 drop Polyethylene Glycol (Miralax) 17 gm PO DAILY [facility] Last Admin: 04/26/17 08:49 Dose: 17 gm Polyethylene Glycol (Miralax) 17 gm PO DAILY PRN PRN Reason: Constipation Senna/Docusate Sodium (Senokot S) 1 tab PO BID [facility] Last Admin: 04/26/17 08:50 Dose: 1 tab Sodium Chloride (Flush - Normal Saline) 10 ml IVF PRN PRN PRN Reason: Saline Flush Last Admin: 04/24/17 10:26 Dose: 10 ml Sodium Chloride (Flush - Normal Saline) 10 ml IVF PRN PRN PRN Reason: Saline Flush Tramadol HCl (Ultram) 50 mg PO Q6H PRN PRN Reason: Moderate Pain (4-6) Tramadol HCl (Ultram) 100 mg PO Q6H PRN PRN Reason: Severe Pain (7-10) Last Admin: 04/24/17 22:05 Dose: 100 mg Zinc Sulfate (Zinc Sulfate) 220 mg PO DAILY [facility] Last Admin: 04/26/17 08:50 Dose: 220 mg
--- NOTE | 2017-04-26 13:27 | PRG ---
DATE OF SERVICE: 04/26/2017 Ms. Frias is feeling fine. She denies any pain at her incision. The incision is clean, dry, and in tact without swelling or drainage. She is awaiting placement. She is afebrile with normal vital sig ns and we will continue her current management.
[2017-04-26] MEDS: traMADol HCl 50 MG TAB PO PRN (14:38)
[2017-04-27] MEDS: Acetaminophen 500 MG TAB PO SCH ×4 (00:28→17:46)
[2017-04-27] MEDS: Ondansetron ODT 8 MG TAB PO SCH ×4 (00:28→17:49)
[2017-04-27] MEDS: Latanoprost 0.005% Ophth Soln 2.5 ml Bottle EA EYE SCH ×2 (03:11→21:52)
[2017-04-27] MEDS: cloNIDine 0.1 MG TAB PO PRN (06:32)
[2017-04-27] MEDS: Carvedilol 25 MG TAB PO SCH ×2 (07:56→11:59)
[2017-04-27] MEDS: Brinzolamide 1% Ophth Soln 10 ml Bottle EA EYE SCH ×2 (07:56→21:52)
[2017-04-27] MEDS: Cilostazol 100 MG TAB PO SCH ×2 (07:56→17:46)
[2017-04-27] MEDS: Azelastine 137 MCG/Spray 30 ML NS SCH ×2 (07:56→21:53)
[2017-04-27] MEDS: Brimonidine Tartrate 0.2% Ophth Soln 5 ml Bottle EA EYE SCH ×2 (07:56→12:02)
[2017-04-27] MEDS: Calcium Acetate 667 MG CAP PO SCH ×3 (07:56→17:46)
[2017-04-27] MEDS: Famotidine 20 MG TAB PO SCH ×2 (07:56→11:59)
[2017-04-27] MEDS: hydrALAZINE 25 MG TAB PO SCH ×3 (07:57→21:51)
[2017-04-27] MEDS: Multivit, Therapeutic 1 TAB PO SCH ×2 (07:57→11:59)
[2017-04-27] MEDS: Loteprednol Etabonate 0.5% Ophth Suspension 5 ml Bottle EA EYE SCH ×2 (07:57→21:53)
[2017-04-27] MEDS: Pilocarpine 1% Ophth Drops 15 ML BOT EA EYE SCH ×3 (07:57→21:53)
[2017-04-27] MEDS: Triple Antibiotic Oint 1 GM Packet TOP SCH (07:57)
[2017-04-27] MEDS: Nitrofurantoin Monohyd/M-Cryst 100 MG CAP PO SCH ×2 (07:57→21:51)
[2017-04-27] MEDS: Polyethylene Glycol 3350 17 GM Packet PO SCH ×2 (07:58→12:00)
[2017-04-27] MEDS: Senokot S 8.6-50 MG TAB PO SCH ×2 (07:58→21:51)
[2017-04-27] MEDS: Zinc Sulfate 220 MG CAP PO SCH (07:58)
[2017-04-27] MEDS ORDERED: Epoetin (ESRD) 20,000 UNITS/ML SC SCH (08:45)
--- NOTE | 2017-04-27 08:54 | PRG ---
DATE OF SERVICE: 04/27/2017 SUBJECTIVE: Ms. Frias is a 67-year-old black female with ESRD and currently on maintenance hemodial ysis. I am at the bedside supervising her dialysis. This patient was initially admitted by surgery where she underwent a left [id number] amputation due to nonhealing stump wound. No other complai nts today. PHYSICAL EXAMINATION: VITAL SIGNS: Blood pressure is 165/81, heart rate 78, respiratory rate 16, temperature 98.1, pulse o x 96%. GENERAL: Awake, alert, comfortable, not in distress. SKIN: Adequate turgor. HEENT: Pinkish conjunctivae. Anicteric sclerae. Decreased visual acuity. NECK: No neck mass, no carotid bruits, no JVD. LUNGS: Clear breath sounds. HEART: Normal sinus rhythm. No murmur, no gallops, no rubs. ABDOMEN: Globular, soft, nontender. EXTREMITIES: Status post bilateral leg amputation. MEDICATIONS: 04/27/2017 - Reviewed. LABORATORY: 04/27/2017 - Glucose 73. 04/24/2017 - Sodium 132, potassium 4.3, chloride 95, carbon dioxide 27, BUN 30, creatinine 4.07, calc ium 9.0. 04/25/2017 - White count 9.7, hemoglobin 9.8, hematocrit 35.5. ASSESSMENT AND PLAN: 1. Anemia - initiate Epogen 7500 units subcutaneously every week. 2. End-stage renal disease, stable. Tolerating current hemodialysis regimen. Fluid removal as tole rated. 4. Status post left [id number] amputation, stable, followed by Surgery. Recheck base met in a.m.
--- NOTE | 2017-04-27 10:29 | PRG ---
DATE OF SERVICE: 04/27/2017 SUBJECTIVE: Lana Frias is doing well today. She is in dialysis this morning. She is alert and ba seline communicative. OBJECTIVE: VITAL SIGNS: 98.1 degrees, 165/81, and 16. LUNGS: Clear to auscultation. CARDIAC: Regular rate and rhythm without murmur or gallop. ABDOMEN: Soft, nontender, amputation stump. EXTREMITIES: Left above the knee looks good. Dialysis graft left thigh working well for dialysis. LABORATORY DATA: Hemoglobin 9.8 on 04/25/2017, two days ago. Basic metabolic profile normal two day s ago. Accu-Cheks 73-117. ASSESSMENT AND PLAN: Doing well, awaiting shelter placement. She is ready to be transferred to the shelter whenever bed is available.
--- NOTE | 2017-04-27 13:01 | PDOC.PN ---
- Subjective Encounter Start Date: 04/27/17 Encounter Start Time: 12:59 Subjective: feels better.no new complaints - Objective Resuscitation Status: Resuscitation Status DNR:Do Not Resuscitate MAR Reviewed: Yes Vital Signs & Weight: Vital Signs (12 hours) Temp Pulse Resp BP BP Pulse Ox 04/27/17 06:32 165/81 H 04/27/17 04:00 98.1 F 78 16 165/81 H 96 Weight Admit Weight 96 lb Weight 96 lb I&O: 04/26/17 04/27/17 04/28/17 06:59 06:59 06:59 Intake Total 1440 800 Balance 1440 800 Result Diagrams: 04/25/17 04:56 04/24/17 05:31 Additional Labs: Accuchecks 04/27/17 04/26/17 04/26/17 05:29 20:00 15:06 POC Glucose 73 105 156 H Phys Exam - Physical Examination Constitutional: NAD HEENT: PERRLA, moist MMs, sclera anicteric, oral pharynx no lesions Neck: no nodes, no JVD, supple, full ROM Respiratory: no wheezing, no rales, no rhonchi, clear to auscultation bilateral Cardiovascular: RRR, no significant murmur, no rub, gallop Gastrointestinal: soft, non-tender, no distention, positive bowel sounds Musculoskeletal: no edema R BKA.Left AKA .surgical site w/o oozing Neurological: non-focal, normal sensation, moves all 4 limbs legally blind Psychiatric: normal affect, A&O x 3 Skin: no rash Dx/Plan (1) DM type 2 (diabetes mellitus, type 2) Status: Chronic Qualifiers: Diabetes mellitus complication status: with kidney complications Diabetes mellitus 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 insulin use: with retirement use Chronic kidney disease stage: on chronic dialysis (2) Status post above knee amputation of left lower extremity Code(s): Z89.612 - ACQUIRED ABSENCE OF LEFT LEG ABOVE KNEE Status: Acute Comment: for stump infection (3) Anemia of renal disease Code(s): D63.1 - ANEMIA IN CHRONIC KIDNEY DISEASE Status: Chronic (4) ESRD (end stage renal disease) on dialysis Code(s): N18.6 - END STAGE RENAL DISEASE; Z99.2 - DEPENDENCE ON RENAL DIALYSIS Status: Chronic Comment: on HD (5) HTN (hypertension) Code(s): I10 - ESSENTIAL (PRIMARY) HYPERTENSION Status: Chronic Qualifiers: Hypertension type: essential hypertension Qualified Code(s): I10 - Essential (primary) hypertension (6) History of right below knee amputation Code(s): Z89.511 - ACQUIRED ABSENCE OF RIGHT LEG BELOW KNEE Status: Chronic (7) PVD (peripheral vascular disease) Code(s): I73.9 - PERIPHERAL VASCULAR DISEASE, UNSPECIFIED Status: Chronic Comment: h/o right BKA and left BKA - Plan PT/OT, out of bed/ambulate, DVT proph w/SCDs cont supportive care.encouraged PO intake.pt did not get Glucerna -: cont home meds as below .post-op care per primary team -: NH placement when accepted -: will follow. -: hd per nephrology * . Review of Systems - Review of Systems Constitutional: negative: fever, chills, sweats, weakness, malaise, other Respiratory: negative: Cough, Dry, Shortness of Breath, Hemoptysis, SOB with Excertion, Pleuritic Pain, Sputum, Wheezing Cardiovascular: negative: chest pain, palpitations, orthopnea, paroxysmal nocturnal dyspnea, edema, light headedness, other Gastrointestinal: negative: Nausea, Vomiting, Abdominal Pain, Diarrhea, Constipation, Melena, Hematochezia, Other Genitourinary: negative: Dysuria, Frequency, Incontinence, Hematuria, Retention , Other Musculoskeletal: negative: Neck Pain, Shoulder Pain, Arm Pain, Back Pain, Hand Pain, Leg Pain, Foot Pain, Other Skin: negative: Rash, Lesions, Lul, Bruising, Other Neurological: negative: Weakness, Numbness, Incoordination, Change in Speech, Confusion, Seizures, Other - Medications/Allergies Allergies/Adverse Reactions: Allergies Allergy/AdvReac Type Severity Reaction Status Date / Time Iodine and Iodide Containing Allergy Intermediate VOMITING, Verified 04/21/17 11 :03 Produc RASH shrimp Allergy Verified 04/21/17 11:03 Medications: Current Medications Acetaminophen (Tylenol) 1,000 mg PO Q6HR [facility] Last Admin: 04/27/17 11:59 Dose: 1,000 mg Aspirin (Aspirin Chewable) 81 mg PO DAILY [facility] Last Admin: 04/27/17 11:59 Dose: 81 mg Azelastine HCl (Azelastine) 0 ml NS BID [facility] Last Admin: 04/27/17 07:56 Dose: Not Given Brimonidine Tartrate (Alphagan 0.2% Ophth Soln) 1 drop EA EYE DAILY [facility] Last Admin: 04/27/17 12:02 Dose: 1 drop Brinzolamide (Azopt 1% Ophth Soln) 1 drop EA EYE BID [facility] Last Admin: 04/27/17 07:56 Dose: Not Given Calcium Acetate (Phoslo) 667 mg PO TID-WM [facility] Last Admin: 04/27/17 11:59 Dose: 667 mg Carvedilol (Coreg) 25 mg PO DAILY [facility] Last Admin: 04/27/17 11:59 Dose: 25 mg Cilostazol (Pletal) 100 mg PO BID-AC [facility] Last Admin: 04/27/17 07:56 Dose: Not Given Clonidine (Catapres) 0.1 mg PO BID PRN PRN Reason: SBP GREATER THAN 160 Last Admin: 04/27/17 06:32 Dose: 0.1 mg Dextrose/Water (Dextrose 50%) 25 gm SLOW IVP PRN PRN PRN Reason: Hypoglycemia Epoetin Ryan (Procrit) 7,500 units SC Q7D [facility] Famotidine (Pepcid) 20 mg PO DAILY [facility] Last Admin: 04/27/17 11:59 Dose: 20 mg Glucagon (Glucagon) 1 mg IM PRN PRN PRN Reason: Hypoglycemia Hydralazine HCl (Apresoline) 10 mg SLOW IVP Q4H PRN PRN Reason: SBP > 170 or DBP > 100 Last Admin: 04/22/17 18:33 Dose: 10 mg Hydralazine HCl (Apresoline) 25 mg PO TID [facility] Last Admin: 04/27/17 07:57 Dose: Not Given Dextrose/Water (D5w) 1,000 mls @ 0 mls/hr IV .Q0M PRN; As Directed PRN Reason: Hypoglycemia Sodium Chloride (Normal Saline 0.9%) 1,000 mls @ 0 mls/hr IV .Q0M [facility] PRN Reason: KVO Last Admin: 04/23/17 03:52 Dose: 1,000 mls Insulin Human Lispro (Humalog) 0 units SC .MILD SLIDING SCALE PRN PRN Reason: Mild Correctional Scale Last Admin: 04/25/17 21:55 Dose: 2 unit Latanoprost (Xalatan 0.005% Ophth Soln) 1 drop EA EYE HS [facility] Last Admin: 04/27/17 03:11 Dose: Not Given Loteprednol Etabonate (Lotemax 0.5% Ophth Suspension) 1 drop EA EYE BID [facility] Last Admin: 04/27/17 07:57 Dose: Not Given Morphine Sulfate (Morphine) 2 mg IVP Q2H PRN PRN Reason: Mild Pain (1-3) Multivitamins (Theragran) 1 tab PO DAILY [facility] Last Admin: 04/27/17 11:59 Dose: 1 tab Neomycin/Polymyxin/Bacitracin (Triple Antibiotic) 1 gm TOP QAM [facility] Last Admin: 04/27/17 07:57 Dose: Not Given Nitrofurantoin Macrocrystals (Macrobid) 100 mg PO BID [facility] Last Admin: 04/27/17 07:57 Dose: Not Given Ondansetron HCl (Zofran Odt) 4 mg PO Q6H PRN PRN Reason: Nausea/Vomiting Ondansetron HCl (Zofran) 4 mg IVP Q6H PRN PRN Reason: Nausea Ondansetron HCl (Zofran Odt) 8 mg PO Q6HR [facility] Last Admin: 04/27/17 11:59 Dose: 8 mg Pantoprazole Sodium (Protonix) 40 mg PO DAILY [facility] Last Admin: 04/27/17 11:59 Dose: 40 mg Pilocarpine HCl (Isopto Carpine 1% Ophth Soln) 1 drop EA EYE TID [facility] Last Admin: 04/27/17 07:57 Dose: Not Given Polyethylene Glycol (Miralax) 17 gm PO DAILY [facility] Last Admin: 04/27/17 12:00 Dose: 17 gm Polyethylene Glycol (Miralax) 17 gm PO DAILY PRN PRN Reason: Constipation Senna/Docusate Sodium (Senokot S) 1 tab PO BID [facility] Last Admin: 04/27/17 07:58 Dose: Not Given Sodium Chloride (Flush - Normal Saline) 10 ml IVF PRN PRN PRN Reason: Saline Flush Last Admin: 04/24/17 10:26 Dose: 10 ml Sodium Chloride (Flush - Normal Saline) 10 ml IVF PRN PRN PRN Reason: Saline Flush Tramadol HCl (Ultram) 50 mg PO Q6H PRN PRN Reason: Moderate Pain (4-6) Tramadol HCl (Ultram) 100 mg PO Q6H PRN PRN Reason: Severe Pain (7-10) Last Admin: 04/26/17 14:38 Dose: 100 mg Zinc Sulfate (Zinc Sulfate) 220 mg PO DAILY [facility] Last Admin: 04/27/17 07:58 Dose: Not Given
[2017-04-28] MEDS: Acetaminophen 500 MG TAB PO SCH ×4 (00:21→17:07)
[2017-04-28] MEDS: Ondansetron ODT 8 MG TAB PO SCH ×4 (00:21→17:07)
[2017-04-28 06:07] LABS: Anion Gap 17 mmol/L (10-20); BUN (Urea Nitrogen) 29 mg/dL (9.8-20.1); Calc. Creatinine Clearance 11 mL/min (70-130); Calcium 9.2 mg/dL (7.8-10.44); Carbon Dioxide 26 mmol/L (23-31); Chloride 94 mmol/L (98-107); Estimated GFR-MDRD 15; Glucose 68 mg/dL (80-115); Potassium 4.2 mmol/L (3.5-5.1); Sodium 133 mmol/L (136-145)
[2017-04-28] MEDS: Cilostazol 100 MG TAB PO SCH ×2 (06:14→17:07)
[2017-04-28] MEDS: Nitrofurantoin Monohyd/M-Cryst 100 MG CAP PO SCH ×2 (07:46→20:53)
[2017-04-28] MEDS: Zinc Sulfate 220 MG CAP PO SCH (07:46)
[2017-04-28] MEDS: Calcium Acetate 667 MG CAP PO SCH ×3 (07:46→17:07)
[2017-04-28] MEDS: Senokot S 8.6-50 MG TAB PO SCH ×2 (07:46→20:55)
[2017-04-28] MEDS: hydrALAZINE 25 MG TAB PO SCH ×3 (07:47→20:53)
[2017-04-28] MEDS: Carvedilol 25 MG TAB PO SCH (07:47)
[2017-04-28] MEDS: Multivit, Therapeutic 1 TAB PO SCH (07:47)
[2017-04-28] MEDS: Famotidine 20 MG TAB PO SCH (07:47)
[2017-04-28] MEDS: Triple Antibiotic Oint 1 GM Packet TOP SCH (07:47)
[2017-04-28] MEDS: Polyethylene Glycol 3350 17 GM Packet PO SCH (07:47)
[2017-04-28] MEDS: Pilocarpine 1% Ophth Drops 15 ML BOT EA EYE SCH ×3 (07:48→20:58)
[2017-04-28] MEDS: Azelastine 137 MCG/Spray 30 ML NS SCH ×2 (07:48→20:57)
[2017-04-28] MEDS: Loteprednol Etabonate 0.5% Ophth Suspension 5 ml Bottle EA EYE SCH ×2 (07:49→20:59)
[2017-04-28] MEDS: Brimonidine Tartrate 0.2% Ophth Soln 5 ml Bottle EA EYE SCH (07:49)
[2017-04-28] MEDS: Brinzolamide 1% Ophth Soln 10 ml Bottle EA EYE SCH ×2 (07:49→20:58)
[2017-04-28] MEDS ORDERED: Carvedilol 25 MG TAB PO SCH (09:00)
[2017-04-28] MEDS: Losartan 25 MG TAB PO SCH (11:34)
[2017-04-28] MEDS: Carvedilol 6.25 MG TAB PO SCH ×2 (11:35→20:54)
--- NOTE | 2017-04-28 12:23 | PDOC.PN ---
- Subjective Encounter Start Date: 04/28/17 Encounter Start Time: 12:21 Subjective: rolled over in bed & fell on floor.found on floor by dietitian -: reports that she has hit her head.denies any other trauma -: denies any chest pain/dizziness/passing out spell - Objective Resuscitation Status: Resuscitation Status DNR:Do Not Resuscitate MAR Reviewed: Yes Vital Signs & Weight: Vital Signs (12 hours) Temp Pulse Resp BP BP Pulse Ox 04/28/17 11:35 177/74 H 04/28/17 07:47 92 173/85 H 04/28/17 07:36 98.2 F 92 14 173/85 H 96 04/28/17 04:00 98.1 F 84 14 167/63 H 96 Weight Admit Weight 96 lb Weight 96 lb I&O: 04/27/17 04/28/17 04/29/17 06:59 06:59 06:59 Intake Total 800 580 Output Total 0 Balance 800 580 Result Diagrams: 04/25/17 04:56 04/28/17 05:25 Additional Labs: Accuchecks 04/28/17 04/28/17 04/27/17 11:32 05:45 20:47 POC Glucose 109 71 89 04/27/17 04/27/17 16:14 11:25 POC Glucose 133 H 85 Phys Exam - Physical Examination Constitutional: NAD blindness HEENT: PERRLA, moist MMs, sclera anicteric, oral pharynx no lesions Neck: no nodes, no JVD, supple, full ROM Respiratory: no wheezing, no rales, no rhonchi, clear to auscultation bilateral Cardiovascular: RRR, no significant murmur Gastrointestinal: soft, non-tender, no distention, positive bowel sounds Musculoskeletal: no edema R BKA,Left AKA w clean surgical site Neurological: non-focal, normal sensation, moves all 4 limbs Psychiatric: normal affect, A&O x 3 Skin: no rash Dx/Plan (1) Hypoglycemia associated with type 2 diabetes mellitus Code(s): E11.649 - TYPE 2 DIABETES MELLITUS WITH HYPOGLYCEMIA WITHOUT COMA Status: Acute Comment: resolving (2) Fall Code(s): W19.XXXA - UNSPECIFIED FALL, INITIAL ENCOUNTER Status: Acute (3) DM type 2 (diabetes mellitus, type 2) Status: Chronic Qualifiers: Diabetes mellitus complication status: with kidney complications Diabetes mellitus chcf insulin use: with chcf use Chronic kidney disease stage: on chronic dialysis (4) Status post above knee amputation of left lower extremity Code(s): Z89.612 - ACQUIRED ABSENCE OF LEFT LEG ABOVE KNEE Status: Acute Comment: for stump infection (5) Anemia of renal disease Code(s): D63.1 - ANEMIA IN CHRONIC KIDNEY DISEASE Status: Chronic (6) ESRD (end stage renal disease) on dialysis Code(s): N18.6 - END STAGE RENAL DISEASE; Z99.2 - DEPENDENCE ON RENAL DIALYSIS Status: Chronic Comment: on HD (7) HTN (hypertension) Code(s): I10 - ESSENTIAL (PRIMARY) HYPERTENSION Status: Chronic Qualifiers: Hypertension type: essential hypertension Qualified Code(s): I10 - Essential (primary) hypertension (8) History of right below knee amputation Code(s): Z89.511 - ACQUIRED ABSENCE OF RIGHT LEG BELOW KNEE Status: Chronic (9) PVD (peripheral vascular disease) Code(s): I73.9 - PERIPHERAL VASCULAR DISEASE, UNSPECIFIED Status: Chronic Comment: h/o right BKA and left BKA (10) Malnutrition Code(s): E46 - UNSPECIFIED PROTEIN-CALORIE MALNUTRITION Status: Chronic Qualifiers: Malnutrition type: protein-calorie malnutrition Protein-calorie malnutrition severity: severe Qualified Code(s): E43 - Unspecified severe protein-calorie malnutrition - Plan continue antibiotics, DVT proph w/SCDs stat jerri CT.BP very high.will give prn anti-hypertensives -: restart Cozaar and change Coreg 25/d to 12.5 BID.monitor -: blood sugars still low.levemir stopped.pt encouraged to eat more. -: awaiting NH placement post L AKA -: cont ABx per primary team.HD per nephrology. AM labs * . Review of Systems - Review of Systems Constitutional: weakness, malaise. negative: fever, chills, sweats, other Respiratory: negative: Cough, Dry, Shortness of Breath, Hemoptysis, SOB with Excertion, Pleuritic Pain, Sputum, Wheezing Gastrointestinal: negative: Nausea, Vomiting, Abdominal Pain, Diarrhea, Constipation, Melena, Hematochezia, Other Genitourinary: negative: Dysuria, Frequency, Incontinence, Hematuria, Retention , Other Musculoskeletal: negative: Neck Pain, Shoulder Pain, Arm Pain, Back Pain, Hand Pain, Leg Pain, Foot Pain, Other Neurological: negative: Weakness, Numbness, Incoordination, Change in Speech, Confusion, Seizures, Other - Medications/Allergies Allergies/Adverse Reactions: Allergies Allergy/AdvReac Type Severity Reaction Status Date / Time Iodine and Iodide Containing Allergy Intermediate VOMITING, Verified 04/21/17 11 :03 Produc RASH shrimp Allergy Verified 04/21/17 11:03 Medications: Current Medications Acetaminophen (Tylenol) 1,000 mg PO Q6HR [facility] Last Admin: 04/28/17 11:34 Dose: 1,000 mg Aspirin (Aspirin Chewable) 81 mg PO DAILY [facility] Last Admin: 04/28/17 07:46 Dose: 81 mg Azelastine HCl (Azelastine) 0 ml NS BID [facility] Last Admin: 04/28/17 07:48 Dose: 1 spr Brimonidine Tartrate (Alphagan 0.2% Ophth Soln) 1 drop EA EYE DAILY [facility] Last Admin: 04/28/17 07:49 Dose: 1 drop Brinzolamide (Azopt 1% Ophth Soln) 1 drop EA EYE BID [facility] Last Admin: 04/28/17 07:49 Dose: 1 drop Calcium Acetate (Phoslo) 667 mg PO TID-WM [facility] Last Admin: 04/28/17 11:35 Dose: 667 mg Carvedilol (Coreg) 12.5 mg PO BID [facility] Last Admin: 04/28/17 11:35 Dose: 12.5 mg Cilostazol (Pletal) 100 mg PO BID-AC [facility] Last Admin: 04/28/17 06:14 Dose: 100 mg Clonidine (Catapres) 0.1 mg PO BID PRN PRN Reason: SBP GREATER THAN 160 Last Admin: 04/27/17 06:32 Dose: 0.1 mg Dextrose/Water (Dextrose 50%) 25 gm SLOW IVP PRN PRN PRN Reason: Hypoglycemia Epoetin Ryan (Procrit) 7,500 units SC Q7D [facility] Last Admin: 04/27/17 18:42 Dose: Not Given Famotidine (Pepcid) 20 mg PO DAILY [facility] Last Admin: 04/28/17 07:47 Dose: 20 mg Glucagon (Glucagon) 1 mg IM PRN PRN PRN Reason: Hypoglycemia Hydralazine HCl (Apresoline) 10 mg SLOW IVP Q4H PRN PRN Reason: SBP > 170 or DBP > 100 Last Admin: 04/22/17 18:33 Dose: 10 mg Hydralazine HCl (Apresoline) 25 mg PO TID [facility] Last Admin: 04/28/17 07:47 Dose: 25 mg Dextrose/Water (D5w) 1,000 mls @ 0 mls/hr IV .Q0M PRN; As Directed PRN Reason: Hypoglycemia Sodium Chloride (Normal Saline 0.9%) 1,000 mls @ 0 mls/hr IV .Q0M [facility] PRN Reason: KVO Last Admin: 04/23/17 03:52 Dose: 1,000 mls Insulin Human Lispro (Humalog) 0 units SC .MILD SLIDING SCALE PRN PRN Reason: Mild Correctional Scale Last Admin: 04/25/17 21:55 Dose: 2 unit Latanoprost (Xalatan 0.005% Ophth Soln) 1 drop EA EYE HS [facility] Last Admin: 04/27/17 21:52 Dose: 1 drop Losartan Potassium (Cozaar) 25 mg PO DAILY [facility] Last Admin: 04/28/17 11:34 Dose: 25 mg Loteprednol Etabonate (Lotemax 0.5% Ophth Suspension) 1 drop EA EYE BID [facility] Last Admin: 04/28/17 07:49 Dose: 1 drop Morphine Sulfate (Morphine) 2 mg IVP Q2H PRN PRN Reason: Mild Pain (1-3) Multivitamins (Theragran) 1 tab PO DAILY [facility] Last Admin: 04/28/17 07:47 Dose: 1 tab Neomycin/Polymyxin/Bacitracin (Triple Antibiotic) 1 gm TOP QAM [facility] Last Admin: 04/28/17 07:47 Dose: 1 gm Nitrofurantoin Macrocrystals (Macrobid) 100 mg PO BID [facility] Last Admin: 04/28/17 07:46 Dose: 100 mg Ondansetron HCl (Zofran Odt) 4 mg PO Q6H PRN PRN Reason: Nausea/Vomiting Ondansetron HCl (Zofran) 4 mg IVP Q6H PRN PRN Reason: Nausea Ondansetron HCl (Zofran Odt) 8 mg PO Q6HR [facility] Last Admin: 04/28/17 11:35 Dose: 8 mg Pantoprazole Sodium (Protonix) 40 mg PO DAILY [facility] Last Admin: 04/28/17 07:46 Dose: 40 mg Pilocarpine HCl (Isopto Carpine 1% Oph Soln) 1 drop EA EYE TID [facility] Last Admin: 04/28/17 07:48 Dose: 1 drop Polyethylene Glycol (Miralax) 17 gm PO DAILY [facility] Last Admin: 04/28/17 07:47 Dose: 17 gm Polyethylene Glycol (Miralax) 17 gm PO DAILY PRN PRN Reason: Constipation Senna/Docusate Sodium (Senokot S) 1 tab PO BID [facility] Last Admin: 04/28/17 07:46 Dose: 1 tab Sodium Chloride (Flush - Normal Saline) 10 ml IVF PRN PRN PRN Reason: Saline Flush Last Admin: 04/24/17 10:26 Dose: 10 ml Sodium Chloride (Flush - Normal Saline) 10 ml IVF PRN PRN PRN Reason: Saline Flush Tramadol HCl (Ultram) 50 mg PO Q6H PRN PRN Reason: Moderate Pain (4-6) Tramadol HCl (Ultram) 100 mg PO Q6H PRN PRN Reason: Severe Pain (7-10) Last Admin: 04/26/17 14:38 Dose: 100 mg Zinc Sulfate (Zinc Sulfate) 220 mg PO DAILY [facility] Last Admin: 04/28/17 07:46 Dose: 220 mg
--- NOTE | 2017-04-28 13:12 | CT ---
CT BRAIN: Date: 04-28-17 Provided Clinical History: Fall. FINDINGS: Comparison is made with the study dated 02-06-15. The ventricular system is prominent in size on the basis of central atrophy. There is no evidence for intracranial hemorrhage or mass effect. The extracranial soft tissues and osseous structures demonst rate no evidence for an acute abnormality. IMPRESSION: No evidence for intracranial hemorrhage or skull fracture. POS: OFF
--- NOTE | 2017-04-28 15:15 | PRG ---
DATE OF SERVICE: 04/28/2017 SUBJECTIVE: Porter Frias is doing well today. OBJECTIVE: VITAL SIGNS: Stable, afebrile. LUNGS: Clear to auscultation. CARDIAC: Regular rate and rhythm without murmur or gallop. ABDOMEN: Soft, nontender. EXTREMITIES: Amputation stump, left above the knee, well healed. No wound problems. Left thigh gra ft, good thrill and bruit. The patient initially was going to [facility] but her primary care doctor in [place] does not go t here. Thus, she is going to be reassigned per the patient and family request that she keep her prima care physician and go to another detention facility. We will start the process over again. Hopefully, she will be ready for discharge in the next day or two.
[2017-04-28] MEDS: Latanoprost 0.005% Ophth Soln 2.5 ml Bottle EA EYE SCH (20:59)
[2017-04-29] MEDS: Acetaminophen 500 MG TAB PO SCH ×4 (00:36→16:22)
[2017-04-29] MEDS: Ondansetron ODT 8 MG TAB PO SCH ×4 (00:36→16:22)
[2017-04-29] MEDS: Cilostazol 100 MG TAB PO SCH ×2 (06:28→16:22)
--- NOTE | 2017-04-29 08:45 | PRG ---
DATE OF SERVICE: 04/29/2017 RENAL MEDICINE SUBJECTIVE: Ms. Frias is a 67-year-old black female with ESRD, currently on maintenance hemodialysi s and recently status post left AKA. I am currently at her bedside supervising her dialysis. No new complaints today. We are awaiting outpatient nursing placement with this patient. PHYSICAL EXAMINATION: VITAL SIGNS: Blood pressure 138/58, heart rate 74, respiratory rate 16, temperature 97.6, pulse ox 9 5%. GENERAL: Patient is awake, comfortable, not in distress. SKIN: Adequate turgor. HEENT: Pinkish conjunctivae. Anicteric sclerae. NECK: No neck mass, no carotid bruits, no JVD. EYES: Decreased visual acuity. LUNGS: Clear breath sounds, no wheezing, no crackles. HEART: Normal sinus rhythm. No murmurs, no gallops or rubs. ABDOMEN: Globular, soft, nontender. No masses. EXTREMITIES: Status post left AKA. MEDICATIONS: Medications of 04/29/2017 was reviewed. LABORATORY DATA: Laboratories of 04/25/2017; white count 9.7, hemoglobin 9.8. On 04/29/2017, glucos e 96. On 04/28/2017, sodium 133, potassium 4.2, chloride 94, carbon dioxide 26, BUN 29, creatinine 3 .57, glucose 68, calcium 9.2. ASSESSMENT AND PLAN: End-stage renal disease, stable. Tolerating current hemodialysis regimen. Flu id removal only as tolerated. Avoiding heparin use. Awaiting [facility] facility placement.
--- NOTE | 2017-04-29 10:43 | PRG ---
DATE OF SERVICE: 04/29/2017 SUBJECTIVE: Joaquin Frias is doing well today. OBJECTIVE: Her vital signs are stable, afebrile. Her exam is unchanged. Her amputation site looks good. Graft, left thigh. Good thrill and bruit. ASSESSMENT AND PLAN: Awaiting [facility] skilled placement. She can be transferred once accepted any time.
[2017-04-29] MEDS: Carvedilol 6.25 MG TAB PO SCH ×2 (11:48→20:29)
[2017-04-29] MEDS: Calcium Acetate 667 MG CAP PO SCH ×3 (11:48→16:22)
[2017-04-29] MEDS: Nitrofurantoin Monohyd/M-Cryst 100 MG CAP PO SCH ×2 (11:48→20:29)
[2017-04-29] MEDS: Multivit, Therapeutic 1 TAB PO SCH (11:48)
[2017-04-29] MEDS: Zinc Sulfate 220 MG CAP PO SCH (11:48)
[2017-04-29] MEDS: Famotidine 20 MG TAB PO SCH (11:49)
[2017-04-29] MEDS: Losartan 25 MG TAB PO SCH (11:49)
[2017-04-29] MEDS: Azelastine 137 MCG/Spray 30 ML NS SCH ×2 (11:49→20:30)
[2017-04-29] MEDS: hydrALAZINE 25 MG TAB PO SCH ×3 (11:49→20:29)
[2017-04-29] MEDS: Brimonidine Tartrate 0.2% Ophth Soln 5 ml Bottle EA EYE SCH (11:50)
[2017-04-29] MEDS: Brinzolamide 1% Ophth Soln 10 ml Bottle EA EYE SCH ×2 (11:50→20:30)
[2017-04-29] MEDS: Loteprednol Etabonate 0.5% Ophth Suspension 5 ml Bottle EA EYE SCH ×2 (11:50→20:32)
[2017-04-29] MEDS: Pilocarpine 1% Ophth Drops 15 ML BOT EA EYE SCH ×3 (11:50→20:32)
[2017-04-29] MEDS: Polyethylene Glycol 3350 17 GM Packet PO SCH (11:51)
[2017-04-29] MEDS: Senokot S 8.6-50 MG TAB PO SCH ×2 (11:51→20:29)
[2017-04-29] MEDS: Triple Antibiotic Oint 1 GM Packet TOP SCH (11:51)
--- NOTE | 2017-04-29 15:07 | PDOC.PN ---
- Subjective Encounter Start Date: 04/29/17 Encounter Start Time: 13:00 Pt seen for followup re: management of medical comorbidities including diabetes mellitus. Says she feels well, no complaints. - Objective Resuscitation Status: Resuscitation Status DNR:Do Not Resuscitate Vital Signs & Weight: Vital Signs (12 hours) Temp Pulse Resp BP BP Pulse Ox 04/29/17 11:49 86 165/74 H 04/29/17 11:48 165/74 H 04/29/17 11:45 97.5 F L 86 20 151/73 H 94 L 04/29/17 11:42 97.6 F 74 16 04/29/17 04:43 97.6 F 74 16 138/58 L 95 Weight Admit Weight 96 lb Weight 96 lb I&O: 04/28/17 04/29/17 04/30/17 06:59 06:59 06:59 Intake Total 580 Output Total 0 Balance 580 Result Diagrams: 04/25/17 04:56 04/28/17 05:25 Additional Labs: Accuchecks 04/29/17 04/28/17 04/28/17 05:48 20:25 15:31 POC Glucose 96 143 H 126 H Phys Exam - Physical Examination Constitutional: NAD HEENT: moist MMs Neck: supple Respiratory: clear to auscultation bilateral Cardiovascular: RRR Gastrointestinal: soft R BKA, L AKA Neurological: moves all 4 limbs Psychiatric: normal affect Dx/Plan (1) DM type 2 (diabetes mellitus, type 2) Status: Chronic Qualifiers: Diabetes mellitus complication status: with kidney complications Diabetes mellitus ad terminal makeup operator insulin use: with ad terminal makeup operator use Chronic kidney disease stage: on chronic dialysis (2) ESRD (end stage renal disease) on dialysis Code(s): N18.6 - END STAGE RENAL DISEASE; Z99.2 - DEPENDENCE ON RENAL DIALYSIS Status: Chronic Comment: on HD (3) Glaucoma Code(s): H40.9 - UNSPECIFIED GLAUCOMA Status: Chronic Qualifiers: Glaucoma type: unspecified (4) HTN (hypertension) Code(s): I10 - ESSENTIAL (PRIMARY) HYPERTENSION Status: Chronic Qualifiers: Hypertension type: essential hypertension Qualified Code(s): I10 - Essential (primary) hypertension (5) PVD (peripheral vascular disease) Code(s): I73.9 - PERIPHERAL VASCULAR DISEASE, UNSPECIFIED Status: Chronic Comment: h/o right BKA and left BKA (6) Protein-calorie malnutrition, moderate Code(s): E44.0 - MODERATE PROTEIN-CALORIE MALNUTRITION Status: Chronic - Plan plan discussed w/ family, PT/OT, out of bed/ambulate * . Continue accuchecks, insulin sliding scale. Await SNF placement. Review of Systems - Review of Systems Constitutional: negative: fever, chills, sweats, weakness, malaise Cardiovascular: negative: chest pain, palpitations, orthopnea, paroxysmal nocturnal dyspnea, edema, light headedness - Medications/Allergies Allergies/Adverse Reactions: Allergies Allergy/AdvReac Type Severity Reaction Status Date / Time Iodine and Iodide Containing Allergy Intermediate VOMITING, Verified 04/21/17 11 :03 Produc RASH shrimp Allergy Verified 04/21/17 11:03 Medications: Current Medications Acetaminophen (Tylenol) 1,000 mg PO Q6HR [facility] Last Admin: 04/29/17 11:48 Dose: 1,000 mg Aspirin (Aspirin Chewable) 81 mg PO DAILY [facility] Last Admin: 04/29/17 11:48 Dose: 81 mg Azelastine HCl (Azelastine) 0 ml NS BID [facility] Last Admin: 04/29/17 11:49 Dose: 1 spr Brimonidine Tartrate (Alphagan 0.2% Ophth Soln) 1 drop EA EYE DAILY [facility] Last Admin: 04/29/17 11:50 Dose: 1 drop Brinzolamide (Azopt 1% Ophth Soln) 1 drop EA EYE BID [facility] Last Admin: 04/29/17 11:50 Dose: 1 drop Calcium Acetate (Phoslo) 667 mg PO TID-WM [facility] Last Admin: 04/29/17 11:56 Dose: Not Given Carvedilol (Coreg) 12.5 mg PO BID [facility] Last Admin: 04/29/17 11:48 Dose: 12.5 mg Cilostazol (Pletal) 100 mg PO BID-AC [facility] Last Admin: 04/29/17 06:28 Dose: 100 mg Clonidine (Catapres) 0.1 mg PO BID PRN PRN Reason: SBP GREATER THAN 160 Last Admin: 04/27/17 06:32 Dose: 0.1 mg Dextrose/Water (Dextrose 50%) 25 gm SLOW IVP PRN PRN PRN Reason: Hypoglycemia Epoetin Ryan (Procrit) 7,500 units SC Q7D [facility] Last Admin: 04/27/17 18:42 Dose: Not Given Famotidine (Pepcid) 20 mg PO DAILY [facility] Last Admin: 04/29/17 11:49 Dose: 20 mg Glucagon (Glucagon) 1 mg IM PRN PRN PRN Reason: Hypoglycemia Hydralazine HCl (Apresoline) 10 mg SLOW IVP Q4H PRN PRN Reason: SBP > 170 or DBP > 100 Last Admin: 04/22/17 18:33 Dose: 10 mg Hydralazine HCl (Apresoline) 25 mg PO TID [facility] Last Admin: 04/29/17 11:49 Dose: 25 mg Dextrose/Water (D5w) 1,000 mls @ 0 mls/hr IV .Q0M PRN; As Directed PRN Reason: Hypoglycemia Sodium Chloride (Normal Saline 0.9%) 1,000 mls @ 0 mls/hr IV .Q0M [facility] PRN Reason: KVO Last Admin: 04/23/17 03:52 Dose: 1,000 mls Insulin Human Lispro (Humalog) 0 units SC .MILD SLIDING SCALE PRN PRN Reason: Mild Correctional Scale Last Admin: 04/25/17 21:55 Dose: 2 unit Latanoprost (Xalatan 0.005% Ophth Soln) 1 drop EA EYE HS [facility] Last Admin: 04/28/17 20:59 Dose: 1 drop Losartan Potassium (Cozaar) 25 mg PO DAILY [facility] Last Admin: 04/29/17 11:49 Dose: 25 mg Loteprednol Etabonate (Lotemax 0.5% Ophth Suspension) 1 drop EA EYE BID [facility] Last Admin: 04/29/17 11:50 Dose: 1 drop Morphine Sulfate (Morphine) 2 mg IVP Q2H PRN PRN Reason: Mild Pain (1-3) Multivitamins (Theragran) 1 tab PO DAILY [facility] Last Admin: 04/29/17 11:48 Dose: 1 tab Neomycin/Polymyxin/Bacitracin (Triple Antibiotic) 1 gm TOP QAM [facility] Last Admin: 04/29/17 11:51 Dose: 1 gm Nitrofurantoin Macrocrystals (Macrobid) 100 mg PO BID [facility] Last Admin: 04/29/17 11:48 Dose: 100 mg Ondansetron HCl (Zofran Odt) 4 mg PO Q6H PRN PRN Reason: Nausea/Vomiting Ondansetron HCl (Zofran) 4 mg IVP Q6H PRN PRN Reason: Nausea Ondansetron HCl (Zofran Odt) 8 mg PO Q6HR [facility] Last Admin: 04/29/17 11:51 Dose: Not Given Pantoprazole Sodium (Protonix) 40 mg PO DAILY [facility] Last Admin: 04/29/17 11:49 Dose: 40 mg Pilocarpine HCl (Isopto Carpine 1% Oph Sol) 1 drop EA EYE TID [facility] Last Admin: 04/29/17 11:50 Dose: 1 drop Polyethylene Glycol (Miralax) 17 gm PO DAILY [facility] Last Admin: 04/29/17 11:51 Dose: Not Given Polyethylene Glycol (Miralax) 17 gm PO DAILY PRN PRN Reason: Constipation Senna/Docusate Sodium (Senokot S) 1 tab PO BID [facility] Last Admin: 04/29/17 11:51 Dose: Not Given Sodium Chloride (Flush - Normal Saline) 10 ml IVF PRN PRN PRN Reason: Saline Flush Last Admin: 04/24/17 10:26 Dose: 10 ml Sodium Chloride (Flush - Normal Saline) 10 ml IVF PRN PRN PRN Reason: Saline Flush Tramadol HCl (Ultram) 50 mg PO Q6H PRN PRN Reason: Moderate Pain (4-6) Tramadol HCl (Ultram) 100 mg PO Q6H PRN PRN Reason: Severe Pain (7-10) Last Admin: 04/26/17 14:38 Dose: 100 mg Zinc Sulfate (Zinc Sulfate) 220 mg PO DAILY [facility] Last Admin: 04/29/17 11:48 Dose: 220 mg
[2017-04-29] MEDS: Latanoprost 0.005% Ophth Soln 2.5 ml Bottle EA EYE SCH (20:31)
[2017-04-30] MEDS: Ondansetron ODT 8 MG TAB PO SCH ×3 (00:17→14:14)
[2017-04-30] MEDS: Acetaminophen 500 MG TAB PO SCH ×3 (00:17→14:13)
[2017-04-30] MEDS: cloNIDine 0.1 MG TAB PO PRN (00:22)
[2017-04-30] MEDS: Cilostazol 100 MG TAB PO SCH (06:36)
[2017-04-30] MEDS: Calcium Acetate 667 MG CAP PO SCH ×2 (09:14→14:14)
[2017-04-30] MEDS: Nitrofurantoin Monohyd/M-Cryst 100 MG CAP PO SCH (10:06)
[2017-04-30] MEDS: Losartan 25 MG TAB PO SCH (10:06)
[2017-04-30] MEDS: Zinc Sulfate 220 MG CAP PO SCH (10:06)
[2017-04-30] MEDS: Polyethylene Glycol 3350 17 GM Packet PO SCH (10:06)
[2017-04-30] MEDS: Carvedilol 6.25 MG TAB PO SCH (10:07)
[2017-04-30] MEDS: hydrALAZINE 25 MG TAB PO SCH ×2 (10:07→14:14)
[2017-04-30] MEDS: Multivit, Therapeutic 1 TAB PO SCH (10:08)
[2017-04-30] MEDS: Senokot S 8.6-50 MG TAB PO SCH (10:09)
[2017-04-30] MEDS: Famotidine 20 MG TAB PO SCH (10:09)
[2017-04-30] MEDS: Triple Antibiotic Oint 1 GM Packet TOP SCH (10:09)
[2017-04-30] MEDS: Azelastine 137 MCG/Spray 30 ML NS SCH (10:10)
[2017-04-30] MEDS: Brimonidine Tartrate 0.2% Ophth Soln 5 ml Bottle EA EYE SCH (10:10)
[2017-04-30] MEDS: Brinzolamide 1% Ophth Soln 10 ml Bottle EA EYE SCH (10:12)
[2017-04-30] MEDS: Loteprednol Etabonate 0.5% Ophth Suspension 5 ml Bottle EA EYE SCH (10:13)
[2017-04-30] MEDS: Pilocarpine 1% Ophth Drops 15 ML BOT EA EYE SCH (10:13)
[2017-04-30 11:17] VITALS: BP 154/70; TEMP 97.5
--- NOTE | 2017-05-01 12:53 | DIS ---
DATE OF ADMISSION: 04/21/2017 DATE OF DISCHARGE: 04/30/2017 HISTORY: A 67-year-old female with end-stage renal disease visually impaired bilateral below knee am putations, dialyzed Thursday, Thursday and Thursday, [place] [facility] followed by Dr. Ortiz. She has left thigh dialysis graft placed on 01/21/2017. She has exhausted her upper extremity access. Patient re cently fell and injured her left BKA stump. She has contracture in left BKA stump in an open wound u ndermining communicating to the tibia. She has a large eschar knee. Plan is for an above the knee a mputation. Wound care, possibly [id number] amputation. Patient was admitted to the [facility] and seen by Dr. Ortiz for end-stage renal disease. She has seen Dr. Chang for cervical spine frac ture that she was to see him as an outpatient for. Dr. Chang saw her for C5 fracture and will follo w up as an outpatient in six weeks. She is to wear her cervical collar in the interim. The patient was followed in the hospital on 04/22/2017. The patient underwent conversion of her BKA to a left ab [id number] amputation. She was seen daily and transferred to the shelter on 04/27/2017. She will follow up in my office in 2 weeks. DISCHARGE MEDICATIONS: Listed in her discharge note please refer to that.
--- NOTE | 2017-05-04 09:49 | PQF ---
Porter DUARTE RICHARD D MD [id number] SURG [id number] CLINICAL DOCUMENTATION CLARIFICATION FORM: POST DISCHARGE DATE: 05/04/2017 ATTN: Dr. Russell Please exercise your independent, professional judgment in responding to the clarification form. Clinical indicators are provided on the bottom of this form for your review Please check appropriate box(s): Please specify patient's left above knee amputation as; [ ] High [ ] Mid [ ] Low For continuity of documentation, please document condition throughout progress notes and discharge summary. Thank You. CLINICAL INDICATORS - SIGNS / SYMPTOMS / LABS Per operative note: Previous left below knee amputation now with knee contracture and open would below the knee secondary to a fall with injury with exposed wound to tibia. RISK FACTORS (per operative report) Contracture left knee. Open wound left below the knee with exposed wound to tibia. TREATMENTS: Per operative report: Revision of left below knee amputation to left above knee amputation on 04/22/17. (This form is maintained as a part of the permanent medical record) 2014 [employer] All Rights Reserved Rachel [email or web address] [phone] MTDD
== END 2017-04-30 15:30 | DRG 474 ==
LOC: SURG A 04-22 08:53
PROVIDERS: ADMIT Specialist; ATTEND Specialist
PROC: 0Y6D0Z3 Detachment at Left Upper Leg, Low, Open Approach (ICD-10-PCS; principal; 2017-04-22)
PROC: 5A1D70Z Performance of Urinary Filtration, Intermittent, Less than 6 Hours Per Day (ICD-10-PCS; 2017-04-23)
PROC: 5A1D70Z Performance of Urinary Filtration, Intermittent, Less than 6 Hours Per Day (ICD-10-PCS; 2017-04-24)
PROC: 5A1D70Z Performance of Urinary Filtration, Intermittent, Less than 6 Hours Per Day (ICD-10-PCS; 2017-04-27)
PROC: 5A1D70Z Performance of Urinary Filtration, Intermittent, Less than 6 Hours Per Day (ICD-10-PCS; 2017-04-29)
DX: T87.89 Other complications of amputation stump (principal); N18.6 End stage renal disease; E44.0 Moderate protein-calorie malnutrition; E11.22 Type 2 diabetes mellitus with diabetic chronic kidney disease; E87.5 Hyperkalemia; I12.0 Hypertensive chronic kidney disease with stage 5 chronic kidney disease or end stage renal disease; E11.51 Type 2 diabetes mellitus with diabetic peripheral angiopathy without gangrene; Z99.2 Dependence on renal dialysis; H40.9 Unspecified glaucoma; H26.9 Unspecified cataract; K21.9 Gastro-esophageal reflux disease without esophagitis; H54.7 Unspecified visual loss; M24.562 Contracture, left knee; D63.1 Anemia in chronic kidney disease; Z66 Do not resuscitate; Z79.82 Long term (current) use of aspirin; Z79.4 Long term (current) use of insulin; Z79.899 Other long term (current) drug therapy; Z89.511 Acquired absence of right leg below knee; Y83.5 Amputation of limb(s) as the cause of abnormal reaction of the patient, or of later complication, without mention of misadventure at the time of the procedure
CPT/HCPCS: 36415; 36416; 70450; 80048; 85025; 86850; 86900; 86901; 88307; 88311; 90471; 90670; 90682; 90935; 93005; 93010; 99214; G0008; G0009; G0257; G0463; G8978-GP-CM; G8979-GP-CK; G8987-GO-CL; G8988-GO-CK; J0131; J0360; J1100; J1580; J1815; J1885; J2001; J2250; J2405; J2704; J3010; J3370; Q2036

== ENCOUNTER 2017-05-16 13:15 | Day surgery (SDC) | payer MEDICARE ==
[2017-05-16 13:23] LABS: #Basophils 0.1 thou/uL (0.0-0.2); #Eosinphils 0.2 thou/uL (0.0-0.7); #Lymphocytes 1.2 thou/uL (1.20-3.40); #Monocytes 0.5 thou/uL (0.11-0.59); %Basophils 1.4 % (0.0-1.0); %Eosinophils 3.1 % (0.0-10.0); %Lymphocytes 19.6 % (21.0-51.0); %Monocytes 8.1 % (0.0-10.0); %Neutrophils 67.8 % (42.0-75.0); Hemoglobin 5.9 g/dL (12.0-16.0); Mean Corpuscular HGB CONC 28.5 g/dL (32.0-36.0); Mean Corpuscular Hemoglobin 22.9 pg (27.0-31.0); Mean Corpuscular Volume 80.3 fl (81.0-99.0); Mean Platelet Volume 7.7 fL (7.4-10.4); Platelet Count 402 thou/uL (130-400); RBC Distribution Width 20.9 % (11.5-14.5); Red Blood Cell (RBC) Count 2.59 mill/uL (4.20-5.40); White Blood Cell (WBC) Count 5.9 thou/uL (4.8-10.8)
[2017-05-16 13:34] LABS: ALT (SGPT) 21 U/L (8-55); AST (SGOT) 31 U/L (5-34); Albumin 3.6 g/dL (3.4-4.8); Alkaline Phosphatase 154 U/L (40-150); Anion Gap 16 mmol/L (10-20); BUN (Urea Nitrogen) 32 mg/dL (9.8-20.1); Bilirubin, Total 0.3 mg/dL (0.2-1.2); CK (CPK) 30 U/L (29-168); Calc. Creatinine Clearance 0 mL/min (70-130); Calcium 9.2 mg/dL (7.8-10.44); Carbon Dioxide 33 mmol/L (23-31); Chloride 99 mmol/L (98-107); Estimated GFR-MDRD 23; Glucose 81 mg/dL (80-115); Potassium 4.5 mmol/L (3.5-5.1); Protein, Total 6.6 g/dL (6.0-8.3); Sodium 143 mmol/L (136-145)
[2017-05-16 13:38] LABS: CKMB 1.9 ng/mL (0-6.6); Troponin I 0.035 ng/mL (< 0.028)
[2017-05-16 13:44] LABS: PTT 33.9 SEC (22.9-36.1)
[2017-05-16 13:45] LABS: INR-International Normal Ratio 1.1; Prothrombin Time 14.3 SEC (12.0-14.7)
[2017-05-16 22:57] VITALS: BP 184/88; TEMP 98.4
== END 2017-05-17 00:25 | disposition home or self-care (01) ==
LOC: SDC/OP 13:15 → SDC 13:25 → SURG A 13:26 → SDC/OP 05-17 00:25 → SURG A 05-17 00:25 → SDC 05-17 00:25
PROVIDERS: ATTEND Internal Medicine Nephrology
PROC: 30233N1 Transfusion of Nonautologous Red Blood Cells into Peripheral Vein, Percutaneous Approach (ICD-10-PCS; principal; 2017-05-16)
DX: I13.2 Hypertensive heart and chronic kidney disease with heart failure and with stage 5 chronic kidney disease, or end stage renal disease (principal); E11.22 Type 2 diabetes mellitus with diabetic chronic kidney disease; N18.6 End stage renal disease; I50.30 Unspecified diastolic (congestive) heart failure; K21.9 Gastro-esophageal reflux disease without esophagitis; E11.51 Type 2 diabetes mellitus with diabetic peripheral angiopathy without gangrene; H54.7 Unspecified visual loss; H91.90 Unspecified hearing loss, unspecified ear; Z99.2 Dependence on renal dialysis; Z79.2 Long term (current) use of antibiotics; Z79.4 Long term (current) use of insulin; Z79.82 Long term (current) use of aspirin; Z79.899 Other long term (current) drug therapy; Z91.041 Radiographic dye allergy status; Z91.013 Allergy to seafood; Z89.512 Acquired absence of left leg below knee; Z89.511 Acquired absence of right leg below knee
CPT/HCPCS: 36430; 80053; 82550; 82553; 83605; 84484; 85025; 85610; 85730; 86850; 86900; 86901; 86920; 94760; P9016

== ENCOUNTER 2017-05-21 09:34 | Outpatient (CLI) | payer MEDICARE ==
--- NOTE | 2017-05-21 10:51 | RAD ---
THREE VIEWS CERVICAL SPINE: Date: 05-21-17 Comparison: None. History: Fracture of cervical vertebral body. FINDINGS: The lateral examination demonstrates mild loss of height at C6, significance uncertain. CT and T1 can not be visualized on the lateral exam. There is multilevel disc space narrowing and degenerative endp late change with multilevel cervical spine facet hypertrophic change. The frontal imaging demonstrate s normal vertebral body alignment. There is a questionable nodular density versus artifact in the lef t upper lobe region measuring in the 9 mm range. The open mouth odontoid view is limited secondary to rotation. The dens and C1-2 articulation is not optimally assessed. There is atherosclerotic calcification in the aortic arch. IMPRESSION: 1. Limited imaging of the cervical spine with incomplete assessment of the lower cervical spine and l imited assessment at the C1-2 articulation secondary to rotation. No comparison imaging is available to indicate the level of the patient's fracture. Correlation with prior CT examination is essential. 2. Recommend correlation with CT examination of the cervical spine at this time if clinically warrant ed. POS: LENARD
== END 2017-05-21 09:35 | disposition home or self-care (01) ==
LOC: TBSIIMAG 09:34
PROVIDERS: ATTEND Physician Assistant
DX: S12.9XXA Fracture of neck, unspecified, initial encounter (principal)
CPT/HCPCS: 72040

== ENCOUNTER 2017-08-19 10:06 | Day surgery (SDC) | payer MEDICARE ==
--- NOTE | 2017-08-18 08:05 | HP ---
HISTORY OF PRESENT ILLNESS: Porter Frias is a 67-year-old black female who is blind, on dialysis, [facility], Thursday, Thursday, and Thursday, 11:30 to 4:30 p.m. She had a left thigh dialysis graft o n 01/21/2017. She has exposed graft in the lateral portion and plan is to revise that using a region al or general anesthesia. They will continue to access the medial segment graft for dialysis, now we will replace the lateral segment and excised the exposed segment. ALLERGIES: IODINE and SHRIMP. MEDICATIONS: Hydralazine, latanoprost eyedrops, Tylenol No. 3, Zofran, clonidine 0.3 mg b.i.d. p.r.n ., losartan potassium 25 mg a day, Coreg 25 mg b.i.d., aspirin 81 mg a day, multiple eye drops, Col[place] e, Reglan, Renvela, Renaplex. PAST MEDICAL HISTORY: Diabetes mellitus; glaucoma; cataracts; visual impairment; blindness; hyperten roselyn; end-stage renal disease on dialysis, [facility], Thursday, Thursday, and Thursday; asymptomat ic cholelithiasis; right adrenal nodule; L1 compression fracture; anemia of chronic disease; PAD; JAVI D; diastolic dysfunction, echocardiogram in 2014, normal EF; hearing loss; blindness. PAST SURGICAL HISTORY: Hysterectomy in 1978; left arm fistula with revisions; exhausted left upper e xtremity access; right arm expression, no knee abscess, adequate venous outflow; left thigh dialysis graft in 2016; left BKA in 12/2016; left thigh axis graft on 01/21/2017; previous right [id number] e amputation; history of mild coronary artery disease, catheterization in 2009, negative cardiac stre ss test in 2014. SOCIAL HISTORY: Tobacco none. Alcohol none. Drug use, never. PHYSICAL EXAMINATION: VITAL SIGNS: 126/49, 75, 97.8 degrees. HEAD, EARS, EYES, NOSE, AND THROAT: Unremarkable. LUNGS: Clear to auscultation. CARDIAC: Regular rate and rhythm without murmur or gallop. ABDOMEN: Soft. EXTREMITIES: Left thigh dialysis graft, bilateral below the knee amputations, contracted left knee, unable to extend it, status post AKA, left thigh dialysis graft midportion, loop graft exposed. ASSESSMENT AND PLAN: Exposed graft, lateral aspect, left thigh. We will plan revision, placement of a new segment of graft, and excision of the exposed segment. Risks and benefits explained, she cons ents.
[2017-08-18 13:15] VITALS: BMI 16.6
[2017-08-19] MEDS ORDERED: Fentanyl 100 MCG/2 ML VIAL ONE (10:19)
[2017-08-19] MEDS ORDERED: Lidocaine 2% Jelly 5 ML TUBE ONE (10:19)
[2017-08-19] MEDS ORDERED: Bupivacaine HCl 0.5%/Epinephrine 1:200,000/PF 30 ml Vial ONE (10:24)
[2017-08-19] MEDS ORDERED: Heparin 5,000 UNITS/ML VIAL ONE (10:24)
[2017-08-19] MEDS ORDERED: Protamine Sulfate 50 MG/5 ML VIAL ONE (10:24)
[2017-08-19] MEDS ORDERED: Lidocaine 2% 10 ML INJ ONE (10:24)
[2017-08-19 10:48] LABS: #Eosinphils 0.5 thou/uL (0.0-0.7); #Lymphocytes 1.5 thou/uL (1.20-3.40); #Monocytes 0.4 thou/uL (0.11-0.59); #Neutrophils 4.6 thou/uL (1.40-6.50); %Basophils 0.7 % (0.0-1.0); %Eosinophils 7.1 % (0.0-10.0); %Lymphocytes 21.3 % (21.0-51.0); %Monocytes 5.9 % (0.0-10.0); %Neutrophils 65.1 % (42.0-75.0); Hemoglobin 10.8 g/dL (12.0-16.0); Mean Corpuscular HGB CONC 31.1 g/dL (32.0-36.0); Mean Corpuscular Volume 93.2 fL (78.0-98.0); Platelet Count 221 thou/uL (130-400); RBC Distribution Width 19.7 % (11.5-14.5); Red Blood Cell (RBC) Count 3.73 mill/uL (4.20-5.40); White Blood Cell (WBC) Count 7.1 thou/uL (4.8-10.8)
[2017-08-19] MEDS ORDERED: Gentamicin 80 MG/2 ML VIAL ONE (10:51)
[2017-08-19 11:07] LABS: Anion Gap 17 mmol/L (10-20); BUN (Urea Nitrogen) 40 mg/dL (9.8-20.1); Calc. Creatinine Clearance 9 mL/min (70-130); Calcium 9.4 mg/dL (7.8-10.44); Carbon Dioxide 25 mmol/L (23-31); Chloride 98 mmol/L (98-107); Estimated GFR-MDRD 11; Glucose 91 mg/dL (80-115); Potassium 5.2 mmol/L (3.5-5.1); Sodium 135 mmol/L (136-145)
--- NOTE | 2017-08-19 12:50 | OP ---
DATE OF PROCEDURE: 08/19/2017 PREOPERATIVE DIAGNOSES: End-stage renal disease, left thigh dialysis graft with exposed graft latera l limb loop graft, arterial side. POSTOPERATIVE DIAGNOSES: End-stage renal disease, left thigh dialysis graft with exposed graft later al limb loop graft, arterial side. PROCEDURES: Revision left thigh dialysis graft without thrombectomy. 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 SURGEON: Dr. Keo Russell ANESTHESIA: General. PROCEDURE: The patient was taken to the operating room where under general anesthesia, left lower ex tremity was prepared with ChloraPrep, draped in routine fashion. Occlusive segment Mastisol placed o hari the exposed graft segment. Incision made over the graft near the arterial anastomosis laterally and carried down skin and subcutaneous tissue and graft dissected free proximally and distally. Aimee lar incision made on the loop end of the graft distal thigh and carried down through the skin and sub cutaneous tissue and graft dissected free proximally and distally. The patient was given 5000 units heparin intravenously. After adequate circulation time, the graft was clamped proximally and distall y with vascular clamps. Vein graft on each end, transected and the segment of graft in the middle po rtion dissected free and excised. Prior to administration of heparin intravenously a new segment of graft 7 mm tunneled with a tunneler laterally and brought in the wounds. End to end graft anastomosi s created with continuous suture of 6-0 Prolene. After completion of the anastomosis, vascular clamp s were released and good flow in the graft was noted. Wounds closed by approximating subcutaneous ti ssues with 3-0 Monocryl, skin with subdermal 4-0 Monocryl and DermaGlue applied. Once these dressing s were applied, the exposed segment of old graft was dissected free proximally and distally and excis ed. Wound left open and packed open. The patient tolerated the procedure well.
[2017-08-19] MEDS ORDERED: Lidocaine 1% PF 5 ML VIAL ONE (13:41)
[2017-08-19] MEDS ORDERED: Heparin 10,000 UNITS/ 10 ML VIAL ONE (13:41)
[2017-08-19] MEDS ORDERED: PROPOFOL 200 MG/20 ML VIAL ONE (13:41)
[2017-08-19] MEDS ORDERED: PHENYLEPHRINE-NS 100 MCG/ML 10 ML SYRINGE ONE (13:41)
[2017-08-19] MEDS ORDERED: ePHEDrine/0.9% NaCl/PF SYRINGE 50 mg/10 ml ONE (13:41)
== END 2017-08-19 15:17 | disposition home or self-care (01) ==
LOC: SDC 10:06
PROVIDERS: ATTEND Specialist
PROC: 041 Lower Arteries, Bypass (ICD-10-PCS; principal; 2017-08-19)
DX: T82.392A Other mechanical complication of femoral arterial graft (bypass), initial encounter (principal); I12.0 Hypertensive chronic kidney disease with stage 5 chronic kidney disease or end stage renal disease; N18.6 End stage renal disease; E11.39 Type 2 diabetes mellitus with other diabetic ophthalmic complication; H40.9 Unspecified glaucoma; D63.1 Anemia in chronic kidney disease; Z91.041 Radiographic dye allergy status; Z79.82 Long term (current) use of aspirin; Z79.899 Other long term (current) drug therapy
CPT/HCPCS: 36825; 80048; 82962; 85025; 86850; 86900; 86901; 86920; 93005; L8670; 36416; 93010; J0670; J1580; J1644; J2001; J2704; J2720; J3010; J3370

== ENCOUNTER 2020-04-26 12:35 | Outpatient (CLI) | payer OTHER ==
[2020-04-27 02:35] LABS: SARS-CoV-2 PCR by NAA Not Detected (NotDetected)
== END 2020-04-26 12:36 | disposition home or self-care (01) ==
LOC: LABBT 12:35
PROVIDERS: ATTEND Specialist
DX: Z01.818 Encounter for other preprocedural examination (principal); Z20.822 Contact with and (suspected) exposure to COVID-19
CPT/HCPCS: 87635; 93005; 93010; U0003; U0005

== ENCOUNTER 2020-05-01 10:34 | Day surgery (SDC) | payer MEDICARE ==
[2020-04-30 12:13] VITALS: BMI 17.2
[~2020-05-01 10:34] MED LIST: Lidocaine 1% PF 5 ML VIAL ONE; Ondansetron PF 4 MG/2 ML Vial ONE; PROPOFOL 200 MG/20 ML VIAL ONE
[2020-05-01 11:53] LABS: #Eosinphils 0.3 thou/uL (0.0-0.7); #Lymphocytes 1.4 thou/uL (1.20-3.40); #Monocytes 0.3 thou/uL (0.11-0.59); #Neutrophils 3.9 thou/uL (1.40-6.50); %Basophils 0.8 % (0.0-1.0); %Eosinophils 4.8 % (0.0-10.0); %Lymphocytes 23.6 % (21.0-51.0); %Monocytes 5.3 % (0.0-10.0); %Neutrophils 65.4 % (42.0-75.0); Hemoglobin 8.2 g/dL (12.0-16.0); Mean Corpuscular HGB CONC 31.3 g/dL (32.0-36.0); Mean Corpuscular Hemoglobin 29.6 pg (27.0-31.0); Mean Corpuscular Volume 94.6 fL (78.0-98.0); Mean Platelet Volume 7.4 fL (7.4-10.4); Platelet Count 281 thou/uL (130-400); RBC Distribution Width 16.4 % (11.5-14.5); Red Blood Cell (RBC) Count 2.78 mill/uL (4.20-5.40); White Blood Cell (WBC) Count 5.9 thou/uL (4.8-10.8)
[2020-05-01] MEDS ORDERED: Fentanyl 100 MCG/2 ML VIAL ONE (11:54)
[2020-05-01] MEDS ORDERED: Lidocaine 1% w/Epinephrine 1:100K 20 ML VIAL ONE (12:07)
[2020-05-01] MEDS ORDERED: Bupivacaine PF 0.5% 30 ML VIAL ONE (12:07)
[2020-05-01] MEDS ORDERED: Protamine Sulfate 50 MG/5 ML VIAL ONE (12:07)
[2020-05-01] MEDS ORDERED: Heparin 5,000 UNITS/ML VIAL ONE (12:07)
[2020-05-01] MEDS ORDERED: Acetaminophen 500 MG TAB ONE (12:16)
[2020-05-01 12:31] LABS: Anion Gap 18 mmol/L (10-20); BUN (Urea Nitrogen) 37 mg/dL (9.8-20.1); Calc. Creatinine Clearance 11 mL/min (70-130); Carbon Dioxide 28 mmol/L (23-31); Chloride 99 mmol/L (98-107); Glucose 79 mg/dL (80-115); Potassium 3.8 mmol/L (3.5-5.1); Sodium 141 mmol/L (136-145)
== END 2020-05-01 15:23 | disposition home or self-care (01) ==
LOC: SDC 10:34
PROVIDERS: ATTEND Specialist
PROC: 03Q80ZZ Repair Left Brachial Artery, Open Approach (ICD-10-PCS; principal; 2020-05-01)
DX: T82.7XXA Infection and inflammatory reaction due to other cardiac and vascular devices, implants and grafts, initial encounter (principal); T82.868A Thrombosis due to vascular prosthetic devices, implants and grafts, initial encounter; I13.2 Hypertensive heart and chronic kidney disease with heart failure and with stage 5 chronic kidney disease, or end stage renal disease; E11.22 Type 2 diabetes mellitus with diabetic chronic kidney disease; N18.6 End stage renal disease; I50.30 Unspecified diastolic (congestive) heart failure; D63.1 Anemia in chronic kidney disease; K21.9 Gastro-esophageal reflux disease without esophagitis; I25.10 Atherosclerotic heart disease of native coronary artery without angina pectoris; H54.8 Legal blindness, as defined in USA; Z79.4 Long term (current) use of insulin; Z79.899 Other long term (current) drug therapy; Z91.013 Allergy to seafood; Z91.041 Radiographic dye allergy status; Z89.511 Acquired absence of right leg below knee; Z89.612 Acquired absence of left leg above knee; Z99.2 Dependence on renal dialysis
CPT/HCPCS: 80048; 85025; J0690; J1644; J2405; J2704; J2720; J3010; S0020